=== PATIENT | female | born 1925 | race Caucasian/White ===

== ENCOUNTER 2016-09-22 16:47 | Inpatient (IN) | payer OTHER, MEDICARE ==
[~2016-09-22] VITALS: Ht 157.5 cm; Wt 51.7 kg
--- NOTE | 2016-09-22 17:01 | ED NEURO DEFICIT/STROKE ---
History of Present Illness General Chief Complaint: Neuro Symptoms/ Deficit Stated Complaint: SUDDEN ONSETN DIFF SPEAKING/AMBULATING. Source: EMS Exam Limitations: SEVERE APHASIA Vital Signs & Intake/Output Vital Signs & Intake/Output Vital Signs Date Time Temp Pulse Resp B/P B/P Pulse O2 O2 Flow FiO2 Mean Ox Delivery Rate 09/28 1137 98.1 96 20 110/64 09/28 0800 Room Air 09/28 0800 98.1 96 20 110/64 94 Room Air ED Intake and Output 09/29 0000 09/28 1200 Intake Total 100 Output Total 400 Balance -300 Intake, Oral 100 Number 100 Bowel Movements Output, Urine 400 Allergies Coded Allergies: No Known Allergies (09/22/16) Reconcile Medications Atorvastatin Calcium 80 MG TABLET 80 MG PO 1700 CVA Cyanocobalamin (Vitamin B-12) (Vitamin B12) 2,500 MCG TAB.CHEW 1 TAB PO Q MONTH DEFICIENCY (Reported) Montelukast Sodium 10 MG TABLET 1 TAB PO DAILY ALLERGIES (Reported) Triage Note: BIBA FOR NEW ONSET DIFFICULTY SPEAKING AND AMBULATING WITNESSED BY ASSISTED LIVING FACILITY. TIME OF ONSET WAS 1615. UPON ARRIVAL PT AWAKE, EYES OPEN. SKIN WARM AND DRY. DR TAVARES IN TO EXAMINE PT AND PT SENT TO CT SCAN Triage Nurses Notes Reviewed? yes HPI: Patient presents for evaluation of a possible stroke. Roughly 45 minutes ago she was talking with staff members at the front desk attendant of her extended care facility. She suddenly became aphasic and began having trouble walking. According to EMS (patient is unable to provide history) she typically ambulates well and is quite talkative. Past History Travel History Traveled to [place] past 21 day No Medical History Any Pertinent Medical History? see below for history Surgical History Surgical History: unobtainable Family History Hx Contributory? No (UNOBTAINABLE) Review of Systems Review of Systems Constitutional: Reports: see HPI. Comments Patient unable to provide review of systems Physical Exam Physical Exam General Appearance: SEE BELOW Cranial Nerves: SEE BELOW Comments: Gen.: Well-nourished, well-developed, no acute respiratory distress. Head: Normocephalic, atraumatic. Eyes: Normal inspection bilaterally, PERRLA, EOMI Ear of erythema. The right nariss: Normal inspection bilaterally Nose: Normal inspection Throat/mouth : Moist mucosa Face: No apparent facial droop Neck: Supple, full range of motion, no goiter Heart: Regular rate and rhythm, no murmurs rubs or gallops Lungs: Clear to auscultation bilaterally with normal air entry Chest: Nontender Back: Normal range of motion Abdomen: Soft, nontender, nondistended, normal bowel sounds Extremities: Normal range of motion grossly, equal radial pulses, no cyanosis clubbing or edema, normal hand grasp bilaterally, normal lower extremity strength, no Babinski sign. Neurologic: Cranial nerves grossly intact, speech is clear Skin: warm and dry Psychiatric: Calm, cooperative, no apparent delusions or hallucinations Core Measures CVA/TIA Diagnosis: Yes NIH Stroke Scale: Total 3 Severe Sepsis Present: No Septic Shock Present: No Progress Differential Diagnosis: stroke Plan of Care: Orders Procedure Date/time Status Heart Healthy Diet 09/28 L Active Fluoroscopic Eval Swallowing 09/28 UNK Complete Gait Training 09/28 UNK Complete Discharge Patient 09/28 UNK Active Diagnostic Imaging: Discussed w/RAD: CT Scan. Radiology Impression: PATIENT: NATALIYA GERMAN PRESENT AGE: 89 PATIENT ACCOUNT NO: [id number] : [birth year] LOCATION: [facility] ORDERING PHYSICIAN: QAMAR TAVARES MD SERVICE DATE: 09/22/16 EXAM TYPE: CAT - CT HEAD WO IV CONTRAST EXAMINATION: CT HEAD WITHOUT CONTRAST CLINICAL INFORMATION: Altered mental status COMPARISON: None TECHNIQUE: Contiguous axial imaging was performed from the skull base to vertex without intravenous administration of contrast. DLP: 672.25 mGy-cm FINDINGS: There is no evidence of acute intracranial hemorrhage or territorial infarction. No abnormal mass effect or midline shift is seen. Champion to white matter differentiation is well preserved. No extra-axial fluid collections are identified. There is atrophy with prominence of the ventricles and the sulci and hypodensity of the periventricular white matter due to chronic small vessel ischemic disease. There is vascular calcifications of the internal carotid arteries and vertebral arteries bilaterally and basilar artery. 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 The mastoid air cells and visualized portions of the paranasal sinuses are well aerated. IMPRESSION: No acute intracranial pathology. This critical result was discussed with Dr. Tavares on 09/22/2016, 5:10 PM and it was ascertained that the content and urgency of the report was understood at the time of direct communication. DICTATED BY: TING VÁZQUEZ MD DATE/TIME DICTATED:1704 PUMP INSTALLATION AND SERVICER:KENROY DATE/TIME TRANSCRIBED:09/22/161704 CONFIDENTIAL, DO NOT COPY WITHOUT APPROPRIATE AUTHORIZATION. <Electronically signed in Other Vendor System> SIGNED BY: TING VÁZQUEZ MD 09/22/161712 Initial ED EKG: NSR, no ST T wave changes Comments: NIH stroke score is limited due to patient's severe aphasia. 17:03 patient's case discussed with Dr. Quintero including physical exam findings and limited NIH stroke score. He feels given the importance of language capacity the patient should be offered TPA. 17:09 PER CHARU RAD: NO ACUTE FINDINGS, ATROPHY. 09/22/2016 5:21:46 PM patient's son is here in the emergency department and states that this patient is not at baseline. The language capacity is severely limited. I must admit however that she is answering questions better than before, able to state "I don't know what's happening". Despite this however I still think that the patient would benefit from TPA. Patient's son is discussing his mother's situation with his . At this point I don't feel the patient is capable of informed medical decision making. 09/22/2016 5:45:42 PM the patient's son and [id number] are at the bedside and have been interacting with Nataliya for close to half an hour. They state that she has had very similar episodes like this in the past and they typically resolve after about 4-6 hours. The daughter states that Nataliya's recovery for this episode seems to be more rapid than prior episodes and she is somewhat hesitant in TPA administration. Although Nataliya seems to be improving steadily , she still has a considerable aphasia. I have discussed this with Dr. Quintero who feels that all things considered, we will hold on TPA at this point. 09/22/2016 5:51:45 PM I have just reevaluated Nataliya because the family felt that she worsen. They noticed a left facial droop and she seemed to become pale. She also began pointing towards her head. They feel she might be experiencing a headache. We will go ahead with the TPA given the patient's stuttering symptoms and I have also ordered acetaminophen for the possibility of a headache and a small dose of labetalol to stabilize the patient's blood pressure (her last pressure is only slightly below the contraindication). Fortunately we are still well within the three-hour time window. Departure Departure Disposition: STILL A PATIENT Condition: Stable Clinical Impression Primary Impression: CVA (cerebral vascular accident) Qualifiers: CVA mechanism: unspecified Qualified Code: I63.9 - Cerebral infarction, unspecified Referrals: DIETER LIRIANO,DENNY (PCP/Family) Departure Forms: Customer Survey General Discharge Information Prescriptions: Current Visit Scripts Atorvastatin Calcium 80 MG PO 1700 28 Days Admission Note Spoke With: MERCEDES JORGENSEN MD Documentation of Exam: Documentation of any treatments & extenuating circumstances including Concerns Regarding Discharge (functional status, medication knowledge or non-compliance, living conditions, etc.) that warrant an admission rather than observation: Patient presents with a dense expressive aphasia consistent with a stroke. She has been administered TPA and now requires hospitalization to the intensive care unit with close clinical monitoring of vital signs and neurological status. Neurology consult should be obtained and patient should have medications initiated to prevent future strokes. Reversible causes of stroke should also be investigated and treated accordingly. Given this patient's advanced age and severity of symptoms I feel she'll require multiple day hospitalization.
--- NOTE | 2016-09-22 17:07 | NUR ---
PT RETURNED FROM CT SCAN. SON AT BEDSIDE. PT AWAKE, ALERT, FOLLOWING COMMANDS. CONTINUALLY SAYING "HELP ME". NOT ANSWERING QUESTIONS APPROPRIATELY. UNABLE TO TELL ME WHERE SHE IS OR WHAT HER BIRTHDAY IS. DID RECOGNIZE AND CALL OUT SONS NAME APPROPRIATELY WHEN HE ENTERED ROOM
--- NOTE | 2016-09-22 17:07 | NUR ---
JOSE FOR NEW ONSET DIFFICULTY SPEAKING AND AMBULATING WITNESSED BY ASSISTED LIVING FACILITY. TIME OF ONSET WAS 1615. UPON ARRIVAL PT AWAKE, EYES OPEN. SKIN WARM AND DRY. DR BOWERS IN TO EXAMINE PT AND PT SENT TO CT SCAN
--- NOTE | 2016-09-22 17:08 | NUR ---
12 LEAD EKG BEING DONE
--- NOTE | 2016-09-22 17:13 | CT SCAN REPORT ---
EXAMINATION: CT HEAD WITHOUT CONTRAST CLINICAL INFORMATION: Altered mental status COMPARISON: None TECHNIQUE: Contiguous axial imaging was performed from the skull base to vertex without intravenous administration of contrast. DLP: 672.25 mGy-cm FINDINGS: There is no evidence of acute intracranial hemorrhage or territorial infarction. No abnormal mass effect or midline shift is seen. Champion to white matter differentiation is well preserved. No extra-axial fluid collections are identified. There is atrophy with prominence of the ventricles and the sulci and hypodensity of the periventricular white matter due to chronic small vessel ischemic disease. There is vascular calcifications of the internal carotid arteries and vertebral arteries bilaterally and basilar artery. 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 The mastoid air cells and visualized portions of the paranasal sinuses are well aerated. IMPRESSION: No acute intracranial pathology. This critical result was discussed with Dr. Tavares on 09/22/2016, 5:10 PM and it was ascertained that the content and urgency of the report was understood at the time of direct communication.
--- NOTE | 2016-09-22 17:30 | NUR ---
PT ON MONITOR AND IS IN SINUS RHYTHM
--- NOTE | 2016-09-22 17:30 | NUR ---
SECOND IV PLACED. LABS DRAWN AND GEORGE PLACED.
[2016-09-22 17:36] LABS: ABSOLUTE BASOPHIL COUNT 0 /CUMM (0.0-0.2); ABSOLUTE EOSINOPHIL COUNT 0.1 /CUMM (0.0-0.7); ABSOLUTE GRANULOCYTE CT 4.6 /CUMM (1.4-6.5); ABSOLUTE LYMPH COUNT 1.7 /CUMM (1.2-3.4); ABSOLUTE MONOCYTE COUNT 0.6 /CUMM (0.10-0.60); BASOPHIL % 0.3 % (0.0-2.0); EOSINOPHIL % 1.6 % (0-5); GRANULOCYTE % 64.9 % (42.2-75.2); HEMATOCRIT 43.2 % (37-47); MEAN CORPUSCULAR HGB 29.3 PG (27.0-31.0); MEAN CORPUSCULAR HGB CONC 33.4 G/DL (33.0-37.0); MEAN CORPUSCULAR VOLUME 87.7 FL (81.0-99.0); MEAN PLATELET VOLUME 7.4 FL (7.4-10.4); PLATELET COUNT 335 /CUMM (130-400); RBC DISTRIBUTION WIDTH 15.1 % (11.5-14.5); RED BLOOD CELL CT 4.93 /CUMM (4.20-5.40); WHITE BLOOD CELL COUNT 7.1 /CUMM (4.8-10.8)
--- NOTE | 2016-09-22 17:45 | NUR ---
FAMILY AT BEDSIDE AND SPOKE WITH DR BOWERS. FAMILY CONSENTS TO TPA BEING GIVEN.
[2016-09-22 17:50] LABS: PT 11.3 SEC (9.4-12.5); PTT 31 SEC (25-37)
--- NOTE | 2016-09-22 17:50 | NUR ---
PT REMAINS ALERT, FOLLOWS SOME COMMANDS BUT NOT ALL COMMANDS. EXPRESSIVE APHASIA NOTED. PT UNABLE TO ANSWER QUESTIONS. MOVES ALL EXTREMITIES. LEFT LEG WEAKER THEN RIGHT. CANNOT HOLD LEFT LEG IN AIR FOR MORE THEN AN COUPLE SECONDS.
--- NOTE | 2016-09-22 17:55 | NUR ---
TPA PREPARED AND DOSAGES CONFIRMED WITH [facility]. BOLUS DOSE OF 4.7CC GIVEN AND GTT STARTED AT 42.7CC/HR AT 1755.
--- NOTE | 2016-09-22 18:05 | NUR ---
PT MEDICATED FOR COMPLAINTS OF HEADACHE WITH TYLENOL
--- NOTE | 2016-09-22 18:15 | NUR ---
FAMILY CONTACT INFO. DILEEP GERMAN, SON [phone] NOHEMI GERMAN [phone], CELL. HOME [phone]
--- NOTE | 2016-09-22 18:20 | NUR ---
DR BOWERS IN TO ASSESS PT. PT WITHOUT ANY WORSENING OR NOTICEABLE IMPROVEMENT IN NEURO STATUS
--- NOTE | 2016-09-22 18:30 | History & Physical ---
RNOALD LIRIANO,[facility] 09/22/16 0479: General Information and HPI MD Statement: I have seen and personally examined NEVILLE GERMAN and documented this H&P. The patient is a 89 year old F who presented with a patient stated chief complaint of [inability to speak and leg weakness]. Source of Information: patient, family Exam Limitations: unable to give history, physical impairment History of Present Illness: Patient is a 89-year-old lady with PMH of TIA (in November 2015), seizures, osteoporosis, vitamin B12 deficiency (receiving monthly B12 injections), anxiety , pernicious anemia, left hip replacement sx in 2013, who was brought into the ED due to acute onset difficulty speaking as well as weakness in the legs. Patient herself is unable to give us a history due to aphasia, she is able to understand and follow commands and expresses very few meaningful words every now and then including 'yes' and 'help'. History was taken on the phone from the daughter, who reported that patient was eating dinner does evening and all of a sudden she was unable to speak, she was also unable to walk and had gait abnormality as a wobbly gait. Patient was brought in to the ED and reportedly her symptoms had improved to a great extent, however she was still unable to talk and had a slight left facial droop. She was in the window for TPA and received alteplase in the ED. According to the daughter patient had TIA in November 2015, was admitted to [facility] (seen by Dr. Doss, neurologist), she takes aspirin 325 mg daily since then. Allergies/Medications Allergies: Coded Allergies: No Known Allergies (09/22/16) Past History Travel History Traveled to [place] past 21 day No Medical History Neurological: dementia, TIA EENT: macular degeneration Gastrointestinal: GERD Musculoskeletal: osteoporosis, UNSTEADY GAIT HIP FX Psychiatric: anxiety Endocrine: B12 DEFICIENCY Blood Disorders: anemia Surgical History Surgical History: hip replacement Past Family/Social History Family History Relations & Conditions if any MOTHER CVA SISTER FH: digestive disorders Psychosocial History Smoking Status: Never Smoked ETOH Use: 1-2 glass of wine or champaigne/day, stopped recently due to elevated liver enzymes Illicit Drug Use: UTD Functional Ability Ambulation: walker, rolling walker since she had hip replacement surgery Review of Systems Review of Systems Constitutional: Denies: chills, weakness. EENTM: Denies: visual changes. Cardiovascular: Denies: chest pain, palpitations. Respiratory: Denies: cough, short of breath. GI: Denies: abdominal pain. Genitourinary: Denies: dysuria. Musculoskeletal: Denies: back pain. Skin: Reports: no symptoms. Exam & Diagnostic Data Last 24 Hrs of Vital Signs/I&O Vital Signs Date Time Temp Pulse Resp B/P Pulse O2 O2 Flow FiO2 Ox Delivery Rate 09/22 2024 97.3 98 16 140/90 95 Room Air 09/22 1955 Room Air 09/22 1948 96.7 96 18 140/88 95 Room Air 09/22 1927 95 18 130/84 94 Room Air 09/22 1911 95 16 136/88 95 Room Air 09/22 1854 94 16 132/84 95 Room Air 09/22 1839 93 16 136/84 95 Room Air 09/22 1822 93 16 136/80 95 Room Air 09/22 1810 94 16 148/84 94 Room Air 09/22 1755 96.7 95 18 146/85 94 Room Air 09/22 1748 95 20 170/94 94 Room Air Room Air 09/22 1730 Room Air 09/22 1651 103 180/104 95 Room Air Physical Exam General Appearance Alert, Mild Distress Skin No Significant Lesion HEENT Atraumatic, PERRLA, Mucous Membr. moist/pink, EOM exam unreliable, patient has baseline visual impairment due to macular degeneration Neck Supple, No JVD Cardiovascular Normal S1, Normal S2, No Murmurs Lungs Normal Air Movement Abdomen Soft, No Tenderness Neurological Normal Tone, Reflexes 2+, babinski reflex negative, impaired sensation to touch on the left lower extremity, expressive aphasia, non-fluent, mild left sided facial droop, forces of the UE 5/5, LLE 4/5, RLE 5/5. there is length inequality between the lower extremities, RLE appears to be longer than the left. she has had hip replacement surgery and since then she has to wear specific shoes to equalize length of the legs and uses a rolling walker to ambulate Extremities No Cyanosis, No Edema, Normal Pulses, No Tenderness/Swelling, left leg is shorter than the right leg, s/p hip replacement, has special shoe to wear for walking Vascular Normal Pulses, Pulses Symmetrical Last 24 Hrs of Labs/West: Laboratory Tests 09/22/16 1721: Anion Gap 11, Estimated GFR > 60, BUN/Creatinine Ratio 20.0, Glucose 95, Calcium 9.5, Total Bilirubin 0.4, AST 102 H, ALT 152 H, Alkaline Phosphatase 224 H, Total Protein 6.8, Albumin 3.8, Globulin 3.0, Albumin/Globulin Ratio 1.3, PT 11.3, INR 1.08, APTT 31, CBC w Diff NO MAN DIFF REQ, RBC 4.93, MCV 87.7, MCH 29.3, RDW 15.1 H, MPV 7.4, Gran % 64.9, Lymphocytes % 24.2, Monocytes % 9.0, Eosinophils % 1.6, Basophils % 0.3, Absolute Granulocytes 4.6, Absolute Lymphocytes 1.7, Absolute Monocytes 0.6, Absolute Eosinophils 0.1, Absolute Basophils 0, PUBS MCHC 33.4 Assessment/Plan Assessment: Patient is a 89 year old lady with PMH of dementia, TIA, seizures, GERD, osteoporosis, vitamin B12 deficiency, anxiety, anemia, macular degeneration, who was brought in to the ED due to acute onset aphasia, left sided facial droop and with lower extremity weakness. problem list and plan: CVA Acute onset expressive aphasia with left-sided facial droop and LE weakness ( acute ischemic stroke status post TPA) * admit to ICU * Neurochecks Q1h * If deteriorate, obtain CT head without IV contrast to rule out hemorrhagic transformation * swallow eval in am (failed bedside swallow eval), medications on hold, will have to confirm CMR in am, keep on IV fluids * Neurology on Board, talked with Dr. Quintero on the phone * carotid Doppler ultrasound and echocardiogram * Discuss with family in am if left hip prosthesis is compatible for MRI of the head * PT/OT consult in am DVT px with Alps NPO - failed bedside swallow eval FULL CODE As Ranked By This Provider Problem List: 1. CVA (cerebral vascular accident) Qualifiers CVA mechanism: unspecified Qualified Code: I63.9 - Cerebral infarction, unspecified Core Measures/Miscellaneous Acute Coronary Syndrome ACS Diagnosis: No Cerebrovascular Accident CVA/TIA Diagnosis: Yes NIH Stroke Scale: Total 7 Date Last Known Well: 09/22/16 Time Last Known Well: 1615 Neurological S/S of CVA: Slurred Speech, Weakness of Limb Symptom Start Date: 09/22/16 Symptom Start Time: 1615 Bedside Swallow Eval Done: Yes Result of Evaluation: Fail Days in Hospital: day 1 Antithrombotic: No No Antithrombotic d/t: Medical Contraindication AFIB: No Aflutter: No Anticoagulant: No No Anticoag d/t: Medical Contraindication Evidence of Atherosclerosis: No LDL Assessed Within 24 Hours: Yes Currently on Statin: No Congestive Heart Failure CHF Diagnosis: No Venous Thromboembolism VTE Risk Factors: Acute medical illness, Age > 40 [facility] prophylaxis d/t: No contraindications No VTE Pharm Prophylaxis d/t: Medical contraindication VTE Diagnosis: No VTE Type: NONE VTE Confirmed by (Test): NONE Severe Sepsis Severe Sepsis Present: No Septic Shock Septic Shock Present: No Miscellaneous Documentation Attending Case Discussed With: MERCEDES JORGENSEN MD Primary Care Physician: DIETER LIRIANO,DENNY Patient sees these Specialists Dr. Doss, neurologist Level of Patient Care: Critical Care (CRI) ANTON WHATLEY 09/22/16 2008: General Information and HPI Allergies/Medications Home Med list Aspirin (Aspirin*) 325 MG TABLET 1 TAB PO DAILY BLOOD THINNER (Reported) Cyanocobalamin (Vitamin B-12) (Vitamin B12) 2,500 MCG TAB.CHEW 1 TAB PO Q MONTH DEFICIENCY (Reported) Montelukast Sodium 10 MG TABLET 1 TAB PO DAILY ALLERGIES (Reported) Resident Review Statement Resident Statement: examined this patient, discussed with engineering intern, agreed with engineering intern Other Findings: Patient is a 89-year-old woman with a past medical history significant for seizures(not on any medications as per neurology), episode of TIA last year in November 2015, history of osteoporosis, macular degeneration, vitamin B12 deficiency , dementia/cognitive impairment, left hip replacement, GERD presented to the ED for the evaluation of acute onset slurring of speech with weakness. Patient is a resident of [facility], in the ED patient was still incoherent, so most of the history was obtained from the daughter. According to the daughter, patient has been forgetting a lot for the past 1 week. Today at around 4:15 PM, when she was about to get her dinner in the cafe, the staff noticed sudden onset of slurring of speech with lower extremity weakness, EMS was called in and she was immediately brought to the ED. Stat CAT scan in the ED did not reveal any acute ischemic/hemorrhagic infarction , but due to her severe aphasia with left-sided facial droop, after talking to Dr. Quintero, it was decided to administer TPA as she was still in the window. The daughter mentioned that she has a history of seizures almost once a year has been following up with a neurologist at [facility]. She had a TIA in 2016 and off towards she was started on full-strength aspirin. The daughter also mentioned that she has been worked up for her deranged LFTs, most likely due to her alcohol intake. She rarely drinks white wine at lunch and dinner. Never smoked vitals on admission: admission pulse 93, temperature 96, his rates rate 16, blood pressure 136/80 on room air. Gen. appearance: Slightly anxious, expressive aphasia Skin: Grossly normal HEENT: PEERLA Neck: Supple, No JVD Cardiovascular: S1 plus and stool without any murmurs Lungs: Clear to Auscultation, Normal Air Movement Abdomen: Normal Bowel Sounds, Soft, No Tenderness Neurological: Expressive aphasia, motor strength Strength at 5/5 in the upper extremities , motor strength 4 x 5 in the left lower extremity, motor strength 5 x 5 in the right lower extremity Cranial Nerves 3-12 NL, Reflexes 2+. Negative cerebellar signs Extremities: No Clubbing, No Cyanosis, No Edema Vascular: Normal Pulses. Pertinent labs on admission: Normal WBC count H&H stable 14.4/87.7, BP normal, deranged LFTs AST 102, ALT 152 , ALP 224. CT head without contrast showed: No acute intracranial pathology. CTA head and neck: Relatively normal CT angiogram of the neck. 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 No vessel occlusions or significant stenoses intracranially. 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 Focal 4 mm rounded focus of contrast opacification on venous phase of imaging in the left retrolenticular capsule which is indeterminate and may be due to a small cavernoma and/or venous angioma. EKG done in the ED showed normal sinus rhythm with first-degree heart block left axis deviation. Assessment and plan: 1. Acute onset severe expressive aphasia with left-sided facial droop(acute ischemic stroke status post TPA) * We will admit the patient to ICU * Patient failed bedside swallow evaluation keep the patient nothing by mouth for now obtained formal swallow evaluation the morning. * Continue fluids normal saline at the rate of 75 mL, keep the blood pressure more than 150, less than 200. * Neurology consult with Dr. Quintero has been obtained, as per recommendations Will monitor the patient overnight. * Neurochecks every 1 hour. * If patient's clinical condition worsens overnight, will obtain stat CT head without IV contrast to rule out any hemorrhagic transformation. * Obtain carotid Doppler ultrasound and echocardiogram. * We will discuss whether patient's left hip prosthesis is compatible for MRI of the head. * PT/OT consult in the morning. * All medications on hold. DVT prophylaxis Alps(as patient received TPA) Nothing by mouth for now Patient is DNR/DNI(code status confirmed with daughter Selam over the phone). MERCEDES JORGENSEN 09/22/16 0928: Attending MD Review Statement Attending Statement Attending MD Statement: examined this patient, discuss w/resident/PA/ENDORSEMENT CLERK, agreed w/resident/PA/ENDORSEMENT CLERK, reviewed EMR data (avail), reviewed images, amended to note Attending Assessment/Plan: CC: cannot speak pmh: Seizure disorder, TIA, GERD, left hip replacement Patient is aphasic, history obtained from ER notes, daughter. According to EMS note patient was last noted baseline at 4:15 PM, start at the [facility] noticed difficulty in her speech, ambulation so they called EMS. In ER patient was noted aphasic, eventual facial droop so Dr. Quintero was called and option of thrombolysis was discussed with family, patient received alteplase at 5.55 p.m. We were called for admission. According to daughter patient has been more forgetful in last 1 week, no other details available. Vitals: Afebrile, pulse 103, RR 22, blood pressure 170/94, saturating well on room air at presentation. Later on blood pressure decreased to 146/85 On examination: Alert, expressive aphasia, follows instructions, in comprehensible talk, strength minimally decreased on right upper extremity compared to left, minimal facial drooping on left side, lower extremity strength intact, left lower extremity shortened and right, neck supple, pupils equal bilaterally, extraocular muscles intact. CVS: S1-S2, RRR. No JVD, no murmurs. RS: Clear to auscultate at bases. Abdomen: Soft, NT, ND, bowel sounds present. No pedal edema. Labs: CBC unremarkable, AST 102, ALT 152, alkaline phosphatase 224. Otherwise BMP, LFT, troponin negative, INR 1.08 CT head: No evidence of hemorrhage or infarct EKG: No acute abnormality A and P #1 acute onset aphasia: Commonest cause could be stroke, patient received thrombolysis. Dr. Quintero was informed from ER. Currently patient has expressive aphasia, follows few instructions, minimum weakness right upper extremity and minimum left facial droop. - Admit to ICU - Consult neurology - Permissive hypertension - Treat only if systolic more than 180 and diastolic more than 100 with labetalol as necessary - As current blood pressure is in 140s systolic, continue gentle IV hydration at 50-75 mL per hour - Neurochecks every 1 hour, if any change obtain stat CT head to rule out bleed - CTA head and neck was obtained - Patient has left hip replacement: compatibility of the hardware with MRI is unknown - 2-D echo in a.m., continuous telemetry monitoring - Aspirin 325 after 24 hours of thrombolysis, before 48 hours according to neurology recommendation - Patient failed bedside swallow evaluation, official swallow evaluation in a.m. if patient passes then atorvastatin 40 mg within 24 hours - DVT prophylaxis after 24-48 hours - OT PT evaluation in morning #2 hold all her home medications #3 DNR/DNI
--- NOTE | 2016-09-22 18:33 | NUR ---
PT REMAINS AWAKE ALERT. APPEARS TO HAVE BOTH RECEPTIVE AND EXPRESSIVE APHASIA. PT NOT FOLLOWING ALL COMMANDS. PT NOT ABLE TO ANSWER QUESTIONS. DOES SPEAK AT TIMES AND SAYS "HELP ME' REPEATEDLY AND SAYING WORDS THAT SOUND LIKE PRAYERS AT TIMES. NO OVERT BLEEDING NOTED. NO BRUISING. URINE CLEAR.RESTING QUIETLY ON STRETCHER
--- NOTE | 2016-09-22 18:43 | NUR ---
TPA INFUSING COMPLETED. NEURO STATUS UNCHANGED
--- NOTE | 2016-09-22 18:55 | NUR ---
HOUSE STAFF AT BEDSIDE
--- NOTE | 2016-09-22 19:30 | NUR ---
TAKEN FOR CTA SCAN
--- NOTE | 2016-09-22 19:48 | NUR ---
RETURNED FROM CTA SCAN. DR DOOLEY AT BEDSIDE. PT COMPLAINING OF BEING COLD. GIVEN EXTRA BLANKETS. PT OTHERWISE CONTINUES TO HAVE EXPRESSIVE APHASIA. KEEPS SAYING "HELP ME" AND MAKING OTHER BUDDHIST REFERENCES.
--- NOTE | 2016-09-22 20:01 | NUR ---
BED ASSIGNMENT [id number]
[2016-09-22] MEDS ORDERED: MONTELUKAST SOD10 M1 PO (20:04)
[2016-09-22] MEDS ORDERED: ASPIRIN325 M2 PO (20:04)
[2016-09-22] MEDS ORDERED: VITAMIN B122500 MC2 PO (20:06)
--- NOTE | 2016-09-22 20:22 | CT SCAN REPORT ---
EXAMINATION: CTA OF THE HEAD AND NECK CLINICAL INFORMATION: Aphasia and difficulty swallowing. COMPARISON: Head CT from earlier in the same evening on 09/22/2016. TECHNIQUE: Test bolus sequences followed by intravenous administration 95 mL of Optiray 320. Helical imaging was performed in the axial plane from the mediastinum to the skull vertex. Delayed postcontrast imaging of the head was also performed. The data was processed at the 3d technologist's workstation for generation of MIP sequences. Three-dimensional volume rendered reformatted images were also generated at an offline 3-D workstation. Stenoses are assessed in accordance with NASCET criteria unless otherwise indicated. DLP: 1634.72 mGy-cm. FINDINGS: CT head: There is no evidence of acute intracranial hemorrhage or territorial infarction. No abnormal mass effect or midline shift is seen. No extra-axial fluid collections are identified. There is a small 4 mm rounded focus of contrast opacification on delayed venous imaging in the left retrolenticular capsule which is not clearly visible on the arterial phase of the study and may represent a small cavernoma and/or venous angioma. There is no hydrocephalus. Extensive chronic white matter microangiopathic changes are again noted with parenchymal volume loss. There are scattered chronic lacunar infarcts in the deep castañeda matter structures. The osseous structures and soft tissues are normal. The mastoid air cells and visualized portions of the paranasal sinuses are well aerated. CTA neck: The imaged aortic arch and origins of the great vessels are normal. The common carotid arteries are widely patent. There is mild atheromatous disease at the carotid bifurcations without significant stenotic narrowing. The carotid bifurcations are otherwise normal. The cervical internal carotid arteries are normal. The vertebral arteries opacify normally and are of normal caliber. The thyroid gland is mildly heterogeneous without a visible dominant lesion. The remaining soft tissues of the neck are unremarkable. Mild dependent subsegmental atelectatic changes noted in the lungs. Significant degenerative changes at the right sternoclavicular articulation. CTA head: There is dolichoectasia and tortuosity of the vertebrobasilar vasculature with focal fusiform dilatation of the upper basilar artery, just inferior to the origins of the superior cerebellar arteries. The posterior cerebral arteries are widely patent. 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 The internal carotid arteries are otherwise of normal caliber. The MABEL and MCA vascular complexes bilaterally are normal. There is a small fenestration in the left A2 segment proximally. The venous sinuses opacify normally. IMPRESSION: Relatively normal CT angiogram of the neck. 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 No vessel occlusions or significant stenoses intracranially. 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 Focal 4 mm rounded focus of contrast opacification on venous phase of imaging in the left retrolenticular capsule which is indeterminate and may be due to a small cavernoma and/or venous angioma. Severe chronic white matter microangiopathy and parenchymal volume loss. No acute territorial infarction. Scattered chronic lacunar infarcts in the deep castañeda matter structures.
--- NOTE | 2016-09-22 20:39 | NUR ---
REPORT CALLED TO VIKTORIA IN ICU.
[2016-09-22 21:00] VITALS: BP 148/94
--- NOTE | 2016-09-22 23:30 | Admission Certification ---
Admission Certification Certification Statement - As attending physician, I certify that at the time of - admission, based on clinical presentation, severity of - symptoms, need for further diagnostic testing and - therapeutic interventions, and risk of adverse outcomes - without in-hospital treatment, in my clinical assessment, - this patient requires an acute hospital stay for a minimum - of two nights or longer. I have also considered psychsocial - factors such as support system, advanced age, financial - issues, cognitive issues, and failed out-patient treatments, - past re-admission history, safety of patient, and lack of - compliance as applicable. Specific rationale supporting this admission is: CVA
--- NOTE | 2016-09-23 04:17 | NUR ---
PATIENT RECEIVED FROM ER ACCOMPANIED BY ER STAFF VIA STRETCHER, TREANSFERED TO ICU BED HOOKED UP TO BEDSIDE MONITOR, INITIAL VITAL SIGNS TAKEN FOLLOWS TEMP=97.9, HR = 96, BP ( MANUAL ) = 148/94, AUTO CUFF BP = 154/96, SATURATION = 96%. PATIENT IS ALERT, OPEN EYES SPONTANEOUSLY BUT DISORIENTED TO PERSON, TIME, PLACE AND SITUATION, DENIES ANY PAIN, UNABLE TO TELL HER NAME, UNABLE TO ANSWER THE QUESTION BUT FOLLOW SIMPLE COMMAND, SPEAK SOME WORDS THAT SOUNDS LIKE A PRAYER AND KEEP REPEATING THE WORD "PLEASE", AND CALLING THE NAME BRODY. PERRLA 2 MM SLUGGISH, MOVING THE FOUR EXTREMITIES WITH GENERALIZED WEAKNESS AND AGAINTS GRAVITY. AFEBRILE, SINUS RHYTHM WITH 1ST DEGREE AV BLOCK, HAS GAUGE 20 X 2 ON BOTH RIGHT FOREARM.BREATHING SPONTANEOUSLYM ON R/A, GOOD AIR ENTRY BILATERALLY AND HAS CLEAR TO DIMINISHED LUNG SOUNDS, WITH GOOD O2 SATUREATION AND NOT IN DISTRESS. ABDOMEN IS SOFT, NON TENDER AND HAS GOOD BOWEL SOUNDS, PATIENT IS ON NPO BUT HAS IVF OF NS AT 75B CC/HR. GEORGE CATHETER IS IN INPLACED, INSERTED IN ER ON 09/22/16, NOTED TO HAVE GOOD AMOUNT OF CLEAR/YELLOW URINE OUTPUT. SKIN CONDITION IS POOR, HAS BRUISES ON THE UPPER AND LOWER EXTREMITIES OTHERWISE NO BROKEN SKIN AND NO ACTIVE BLEEDING. TPA WAS GIVEN IN ER AND FINISHED BEFORE COMING UP THE ICU.
[2016-09-23 05:36] LABS: ABSOLUTE BASOPHIL COUNT 0 /CUMM (0.0-0.2); ABSOLUTE EOSINOPHIL COUNT 0.1 /CUMM (0.0-0.7); ABSOLUTE GRANULOCYTE CT 5.8 /CUMM (1.4-6.5); ABSOLUTE LYMPH COUNT 2.1 /CUMM (1.2-3.4); ABSOLUTE MONOCYTE COUNT 0.7 /CUMM (0.10-0.60); BASOPHIL % 0.6 % (0.0-2.0); EOSINOPHIL % 0.9 % (0-5); HEMATOCRIT 46.4 % (37-47); MEAN CORPUSCULAR HGB 28.7 PG (27.0-31.0); MEAN CORPUSCULAR HGB CONC 32.5 G/DL (33.0-37.0); MEAN CORPUSCULAR VOLUME 88.1 FL (81.0-99.0); MEAN PLATELET VOLUME 7.9 FL (7.4-10.4); PLATELET COUNT 262 /CUMM (130-400); RBC DISTRIBUTION WIDTH 15.1 % (11.5-14.5); RED BLOOD CELL CT 5.26 /CUMM (4.20-5.40); WHITE BLOOD CELL COUNT 8.7 /CUMM (4.8-10.8)
[2016-09-23 05:43] LABS: PTT 27 SEC (25-37)
[2016-09-23 08:00] VITALS: BP 146/70
--- NOTE | 2016-09-23 08:18 | Cons- CRCU ---
RONALD LIRIANO,TEE 09/23/16 0818: General Information and HPI History of Present Illness: Patient is a 89-year-old lady with PMH of TIA (in November 2015), seizures, osteoporosis, vitamin B12 deficiency (receiving monthly B12 injections), anxiety , pernicious anemia, left hip replacement sx in 2013, who was brought into the ED due to acute onset difficulty speaking as well as weakness in the legs. Patient herself was unable to give us a history due to aphasia, she is able to understand and follow commands, expresses a few meaningful words every now and then including 'yes' and 'help'. History was taken on the phone from the daughter yesterday and further at bedside today, she reported that apparently the patient went to the cafeteria in the [place] to eat dinner, while ordering food all of a sudden was unable to speak, nursing called 911 right away. she was also found to have a wobbly gait. Patient was brought in to the ED right away and by that time she had some improvement in the symptoms however she was still unable to talk and had a slight left facial droop. She was in the window for TPA and received alteplase in the ED. According to the daughter patient had TIA in November 2015, was admitted to [facility] (seen by Dr. Doss, neurologist), she takes aspirin 325 mg daily since then. Her symptoms were similar in that her speech was mostly repeating a prayer but she was rather talkative although her speech would not make sense. This time the daughter reports that she is saying same prayers and speech is rather meaningless but she states less words. Allergies/Medications Allergies: Coded Allergies: No Known Allergies (09/22/16) Home Med List: Aspirin (Aspirin*) 325 MG TABLET 1 TAB PO DAILY BLOOD THINNER (Reported) Cyanocobalamin (Vitamin B-12) (Vitamin B12) 2,500 MCG TAB.CHEW 1 TAB PO Q MONTH DEFICIENCY (Reported) Montelukast Sodium 10 MG TABLET 1 TAB PO DAILY ALLERGIES (Reported) Review of Systems Review of Systems Constitutional: Reports: weakness. Denies: chills, fever. EENTM: Reports: no symptoms. Cardiovascular: Denies: chest pain, palpitations. Respiratory: Denies: cough, sputum production. GI: Denies: abdominal pain, changes in stool. Genitourinary: Reports: no symptoms. Musculoskeletal: Reports: no symptoms. Skin: Reports: no symptoms. Past History Travel History Traveled to [place] past 21 day No Medical History Neurological: dementia, TIA EENT: macular degeneration Gastrointestinal: GERD Musculoskeletal: osteoporosis, UNSTEADY GAIT HIP FX Psychiatric: anxiety Endocrine: B12 DEFICIENCY Blood Disorders: anemia Surgical History Surgical History: unobtainable Psychosocial History Smoking Status: Never Smoked ETOH Use: 6 Illicit Drug Use: UTD Exam & Diagnostic Data Last 24 Hrs of Vital Signs/I&O Vital Signs Date Time Temp Pulse Resp B/P Pulse O2 O2 Flow FiO2 Ox Delivery Rate 09/23 0800 99.0 96 20 146/70 95 Room Air 09/23 0800 95 Room Air 09/23 0400 95 Room Air 09/23 0000 96 Room Air 09/22 2100 97.9 96 17 148/94 96 Room Air 09/22 2100 96 09/22 2100 96 Room Air 09/22 2025 97.3 98 16 140/90 95 Room Air 09/22 1955 Room Air 09/22 1948 96.7 96 18 140/88 95 Room Air 09/22 1927 95 18 130/84 94 Room Air 09/22 1911 95 16 136/88 95 Room Air 09/22 1854 94 16 132/84 95 Room Air 09/22 1839 93 16 136/84 95 Room Air 09/22 1822 93 16 136/80 95 Room Air 09/22 1810 94 16 148/84 94 Room Air 09/22 1755 96.7 95 18 146/85 94 Room Air 09/22 1748 95 20 170/94 94 Room Air Room Air 09/22 1730 Room Air 09/22 1651 103 180/104 95 Room Air Intake & Output 09/23 1600 09/23 0800 09/23 0000 Intake Total 757 225 Output Total 625 490 Balance 132 -265 Intake, IV 757 225 Output, Urine 625 490 Patient 52.617 kg Weight Physical Exam General Appearance: no apparent distress, alert, awake, comfortable, thin Head: atraumatic Eyes: Bilateral: normal appearance (unable to follow directions). Ears, Nose, Throat: normal ENT inspection Neck: normal inspection, supple, full range of motion Respiratory: normal breath sounds, chest non-tender, no respiratory distress Cardiovascular: regular rate/rhythm Peripheral Pulses: 2+ radial (R), 2+ radial (L), 2+ dorsalis pedis (R), 2+ dorsalis pedis (L) Gastrointestinal: normal bowel sounds, soft, non-tender Back: normal inspection, normal range of motion Extremities: normal capillary refill, normal range of motion, no edema Skin: intact Last 48 Hrs of Labs/West: Laboratory Tests 09/23/16 0500: Anion Gap 10, Estimated GFR > 60, Glucose 86, Calcium 9.4, Phosphorus 3.4, Magnesium 1.8, Total Bilirubin 0.9, AST 80 H, ALT 126 H, Albumin 4.0, Triglycerides 98, Cholesterol 173, LDL Cholesterol, Calc 77, HDL Cholesterol 77 H, Cholesterol/HDL Ratio 2, APTT 27, CBC w Diff NO MAN DIFF REQ, RBC 5.26, MCV 88.1, MCH 28.7, RDW 15.1 H, MPV 7.9, Gran % 67.0, Lymphocytes % 23.9, Monocytes % 7.6, Eosinophils % 0.9, Basophils % 0.6, Absolute Granulocytes 5.8, Absolute Lymphocytes 2.1, Absolute Monocytes 0.7 H, Absolute Eosinophils 0.1, Absolute Basophils 0, PUBS MCHC 32.5 L, Urinalysis LIGHT H, Urine Color YEL, Urine Clarity HAZY H, Urine pH 7.0, Ur Specific [place] 1.010, Urine Protein NEG, Urine Ketones NEG, Urine Nitrite NEG, Urine Bilirubin NEG, Urine Urobilinogen 0.2, Ur Leukocyte Esterase NEG, Ur Microscopic SEDIMENT EXAMINED, Urine RBC 25- 50 H, Urine WBC RARE, Urine Bacteria FEW H, Urine Mucus FEW, Urine Hemoglobin LARGE H, Urine Glucose NEG 09/22/16 1721: Anion Gap 11, Estimated GFR > 60, BUN/Creatinine Ratio 20.0, Glucose 95, Calcium 9.5, Total Bilirubin 0.4, AST 102 H, ALT 152 H, Alkaline Phosphatase 224 H, Total Protein 6.8, Albumin 3.8, Globulin 3.0, Albumin/Globulin Ratio 1.3, PT 11.3, INR 1.08, APTT 31, CBC w Diff NO MAN DIFF REQ, RBC 4.93, MCV 87.7, MCH 29.3, RDW 15.1 H, MPV 7.4, Gran % 64.9, Lymphocytes % 24.2, Monocytes % 9.0, Eosinophils % 1.6, Basophils % 0.3, Absolute Granulocytes 4.6, Absolute Lymphocytes 1.7, Absolute Monocytes 0.6, Absolute Eosinophils 0.1, Absolute Basophils 0, PUBS MCHC 33.4 Assessment/Plan Impression/Plan: Patient is a 89-year-old lady with PMH of TIA (in November 2015), seizures, osteoporosis, vitamin B12 deficiency (receiving monthly B12 injections), anxiety , pernicious anemia, left hip replacement sx in 2013, who was brought into the ED due to acute onset difficulty speaking as well as weakness in the legs. problem list and plan: CVA Acute onset expressive aphasia with left-sided facial droop and LE weakness ( acute ischemic stroke status post TPA). improved today. * continue Neurochecks Q1h * If deteriorate, obtain CT head without IV contrast to rule out hemorrhagic transformation * repeat CT in 24 hours, if negative start aspirin * swallow eval this am: puree and honey thick diet * repeat LFTs and consider starting statin * Neurology on Board, will follow Dr. Quintero recommendations * carotid Doppler ultrasound and echocardiogram * follow PT/OT consult DVT px with Alps Diet - honey think and puree FULL CODE Consult Acknowledgment - Thank you for your consult request. KAYLEIGH LIRIANO,Jerald GARCIA 09/23/16 0943: General Information and HPI Consulting Request Date of Consult: 09/23/16 Requested By: Dr. Dove Reason for Consult: CVA, s/p TPA, CRCU monitoring Source of Information: old records Exam Limitations: clinical condition Assessment/Plan Other Findings/Comments: I have personally seen and examined the patient. I have reviewed the resident's physical exam, assessment and plan, and agree with the information as detailed above. The patient is a 89-year-old female with a past medical history significant for dementia, previous TIAs, history of seizures, reflux disease, osteoporosis and vitamin B12 deficiency. She also has a history of anxiety and anemia, and left hip fracture with raz placement. The patient was brought into the emergency department with an acute change in mental status. According to the EMS notes, the patient was seen at her baseline at 4:15 PM at an extended care facility. In the ED, the patient was noted to be aphasic with a progressive facial droop. Neurology was contacted and after family consent was given, the patient was administered alteplase at 5:55 PM. The patient had stable vital signs without further neurological deterioration. The patient currently is awake and alert. She remains aphasic. There were no overnight events, and her blood pressure remained stable in the 130s to 140s. A noncontrast CT scan of the head showed no acute abnormality. 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 Impression: 1. Acute CVA resulting in aphasia and left facial droop, status post TPA without further neurologic deterioration. 2. 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 3. Previous seizures, no evidence of seizures at present. 4. GERD. 5. Osteoporosis. 6. Chronic anemia. 7. Macular degeneration. Plan: * Continue every hour neuro checks. Monitor for seizures. * Await neurology input. * We will check a follow-up head CT at 24 hours. * Swallowing evaluation ordered today. * Will advance diet if able. * Carotid Doppler and echocardiogram ordered. Will consult cardiology if any abnormalities. * OT/PT consult. The patient will need to walk with a Rollator. She also has a special orthotic shoe which is necessary for ambulation given her previous hip fracture. * Alps for DVT prophylaxis. * Patient's family updated at the bedside. Consult Acknowledgment - Thank you for your consult request.
--- NOTE | 2016-09-23 08:32 | NUR ---
OCCUPATIONAL THERAPY NOTE: OT CONSULT RECEIVED AND CHART REVIEWED. PT IS S/P TPA <24 HOURS, OT EVAL CX FOR TODAY PER PROTOCOL. OT WILL F/U TOMORROW IF APPROPRIATE. THANK YOU.
--- NOTE | 2016-09-23 08:38 | NUR ---
PHYSICAL THERAPY. PT CONSULT RECEIVED AND CHART REVIEWED. Pt IS <24HR S/P tPA ADMINISTRATION. PT WILL DEFER EVALUATION PER PROTOCOL AND F/U APPROPRIATE.
--- NOTE | 2016-09-23 11:41 | NUR ---
Patient is alert and aphasic, unable to answer questions approprietly- speech is garbled at times. Occasionally will follow commands, right hand grasp appears weaker than left however no drift is noted and patient can move upper extremties freely. BLE also weak. NIH 6-8. Pupils are 2mm and brisk. 1st degree AV block on tele monitor, HR= 90-100's. SBP: 130-140's. On room air. lungs clear O2 sat 93-96%. Abdomen is soft and non tender with + bowel sounds. Swallow eval at the bedside and cleared patient for a puree/honey thick diet. Pop in place draining clear yellow urine. No areas of pressure injury are noted- Minimal areas of bruising are noted- RLE with trace edema. NS infusing at 75mls/hr. No s/s of pain are currently noted. Patients daughter in law at the bedside and updated on POC. Carotid ultrasound pending. Will continue to closely monitor patient.
--- NOTE | 2016-09-23 14:01 | ULTRASOUND REPORT ---
EXAMINATION: US DUPLEX CAROTID AND VERTEBRAL CLINICAL INFORMATION: Acute ischemic stroke/aphasia. COMPARISON: None available. TECHNIQUE: Real-time ultrasound and Doppler techniques (integrating B-mode 2D vascular images, Doppler spectral analysis and color flow Doppler imaging) were utilized to interrogate the extracranial carotid and vertebral arteries bilaterally. The degree of stenosis determined by criteria similar to NASCET. FINDINGS: Right common carotid artery peak systolic velocity ranges between 56 and 83 cm/s with maximal end-diastolic velocity of 14 cm/s. Right internal carotid artery peak systolic velocity measures up to 66 cm/s with maximal end-diastolic velocity of 16 cm/s. Right external carotid artery peak velocity is 107 cm/s. There is antegrade flow within the right vertebral artery. Extensive calcified atherosclerotic plaque at the right carotid bifurcation. Left common carotid artery peak systolic velocity ranges between 70 and 90 cm/s with maximal end-diastolic velocity of 18 cm/s. Left internal carotid artery peak systolic velocities range between 75 and 81 cm/s with maximal end-diastolic velocity of 23 cm/s. There is antegrade flow within the left vertebral artery. Left external carotid artery peak systolic velocity is 89 cm/s. There is calcified and soft lipid rich atherosclerotic plaque at the left carotid bifurcation. 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 There is no hemodynamically significant internal carotid artery stenosis by sonographic criteria.
[2016-09-23 16:00] VITALS: BP 136/84
--- NOTE | 2016-09-23 16:00 | NUR ---
Patient is alert- able to move all extremities and follow commands, she is now able to lift both legs off the bed on command. Hand grasps are strong however right appears slightly weaker than left. NIH currently a 2 which is improved from this mornings assessment. She can answer most questions appropriately- speech is slow and she has some mild expressive aphasia. She was able to tolerate a regular puree/honey diet for lunch and fed herself- set-up only. Neuro in to assess patient at this time. Vitals have remained stable and no s/s of pain are currently noted. Plan is for a repeat CT scan of her head
--- NOTE | 2016-09-23 16:44 | Cons- Neurology ---
General Information and HPI Consulting Request Date of Consult: 09/23/16 Requested By: MERCEDES JORGENSEN MD Reason for Consult: Sudden aphasia Source of Information: patient, old records Exam Limitations: no limitations History of Present Illness: 89-year-old woman suddenly unable to speak yesterday. She presented to the ER within the time window for TPA and this was administered after CT scan ruled out bleed. She was admitted to the ICU and has improved progressively. She is now speaking quite well although slowly. There is no associated weakness or numbness and no complaint of visual disturbance at this time. Allergies/Medications Allergies: Coded Allergies: No Known Allergies (09/22/16) Home Med List: Aspirin (Aspirin*) 325 MG TABLET 1 TAB PO DAILY BLOOD THINNER (Reported) Cyanocobalamin (Vitamin B-12) (Vitamin B12) 2,500 MCG TAB.CHEW 1 TAB PO Q MONTH DEFICIENCY (Reported) Montelukast Sodium 10 MG TABLET 1 TAB PO DAILY ALLERGIES (Reported) Current Medications: Current Medications Sig/Deion Start time Last Medication Dose Route Stop Time Status Admin Acetaminophen 650 MG Q6P PRN 09/22 1845 DC PO Acetaminophen 1,000 MG Q6P PRN 09/22 1845 DC IV Acetaminophen 0 .STK-MED ONE 09/22 1801 DC IV Acetaminophen 1,000 MG ONCE ONE 09/22 1800 DC 09/22 N/A 1 UNIT IV 09/22 1814 1807 Alteplase, 4.77 MG BOLUS ONE 09/22 1730 DC 09/22 Recombinant IV 09/22 1731 1755 Alteplase, 0 .STK-MED ONE 09/22 1730 DC Recombinant IV Aspirin 325 MG ONCE ONE 09/23 2000 AC PO 09/23 2000 Atorvastatin Calcium 80 MG 1700 09/23 1700 AC PO Diclofenac Sodium 1 NENA 4 TIMES/DAY PRN 09/22 2015 AC 09/22 TOP 2354 Ibuprofen 600 MG Q6P PRN 09/22 2014 DC PO Labetalol HCl 5 MG ONCE ONE 09/22 1800 CAN IV 09/22 1801 Oxycodone HCl 5 MG Q6P PRN 09/22 1845 DC PO Sodium Chloride 1,000 ML Q13H 09/22 1930 AC 09/23 IV 1029 Review of Systems Review of Systems: ROS: A complete medical systems review was obtained. No pertinent complaints were found. Past History Travel History Traveled to [place] past 21 day No Medical History Neurological: dementia, TIA EENT: macular degeneration Gastrointestinal: GERD Musculoskeletal: osteoporosis, UNSTEADY GAIT HIP FX Psychiatric: anxiety Endocrine: B12 DEFICIENCY Blood Disorders: anemia Surgical History Surgical History: hip replacement Family History Relations & Conditions If Any: MOTHER CVA SISTER FH: digestive disorders Psychosocial History Smoking Status: Never Smoked ETOH Use: 1-2 glass of wine or champaigne/day, stopped recently due to elevated liver enzymes Illicit Drug Use: UTD Functional Ability Ambulation: walker, rolling walker since she had hip replacement surgery Exam & Diagnostic Data Vital Signs and I&O Vital Signs Date Time Temp Pulse Resp B/P Pulse O2 O2 Flow FiO2 Ox Delivery Rate 09/23 1600 98.3 93 16 136/84 94 Room Air 09/23 1200 98 Room Air 09/23 0800 99.0 96 20 146/70 95 Room Air 09/23 0800 95 Room Air 09/23 0400 95 Room Air 09/23 0000 96 Room Air 09/22 2100 97.9 96 17 148/94 96 Room Air 09/22 2100 96 09/22 2100 96 Room Air 09/22 2025 97.3 98 16 140/90 95 Room Air 09/22 1955 Room Air 09/22 1948 96.7 96 18 140/88 95 Room Air 09/22 1927 95 18 130/84 94 Room Air 09/22 1911 95 16 136/88 95 Room Air 09/22 1854 94 16 132/84 95 Room Air 09/22 1839 93 16 136/84 95 Room Air 09/22 1822 93 16 136/80 95 Room Air 09/22 1810 94 16 148/84 94 Room Air 09/22 1755 96.7 95 18 146/85 94 Room Air 09/22 1748 95 20 170/94 94 Room Air Room Air 09/22 1730 Room Air 09/22 1651 103 180/104 95 Room Air Intake & Output 09/23 1600 09/23 0800 09/23 0000 Intake Total 810 757 225 Output Total 850 625 490 Balance -40 132 -265 Intake, IV 690 757 225 Intake, Oral 120 Output, Urine 850 625 490 Patient 116 lb Weight Physical Exam: On exam the patient appeared generally well and in no distress. No carotid bruits and no cardiac murmur. No peripheral edema Mental status: Alert, attentive, oriented to hosp,month andyear, speech is slow but no language errors, follows commands, formal MSE deferred Funduscopic unremarkable Visual abdullahi full , Eye movements full without nystagmus, pupils midsize equal round and reactive to light. Facial movement normal bilaterally Facial sensation normal bilaterally Hearing decreased bilaterally Uvula elevates midline Tongue protrusion is midline Shoulder shrug symmetric Motor power and tone normal in all 4 extremities Sensation intact to primary modes Tendon reflexes normal and symmetric without pathologic signs Coordination no ataxia Gait [testing deferred] Last 48 Hours of Lab Results: Laboratory Tests 09/23 09/22 0500 1721 Chemistry Sodium (137 - 145 mmol/L) 137 139 Potassium (3.5 - 5.1 mmol/L) 4.6 4.1 Chloride (98 - 107 mmol/L) 101 100 Carbon Dioxide (22 - 30 mmol/L) 26 29 Anion Gap (5 - 16) 10 11 BUN (7 - 17 mg/dL) 11 14 Creatinine (0.5 - 1.0 mg/dL) 0.7 0.7 Estimated GFR (>60 ml/min) > 60 > 60 BUN/Creatinine Ratio (7 - 25 %) 20.0 Glucose (65 - 99 mg/dL) 86 95 Calcium (8.4 - 10.2 mg/dL) 9.4 9.5 Phosphorus (2.5 - 4.5 mg/dL) 3.4 Magnesium (1.6 - 2.3 mg/dL) 1.8 Total Bilirubin (0.2 - 1.3 mg/dL) 0.9 0.4 AST (14 - 36 U/L) 80 H 102 H ALT (9 - 52 U/L) 126 H 152 H Alkaline Phosphatase (<127 U/L) 224 H Total Protein (6.3 - 8.2 g/dL) 6.8 Albumin (3.5 - 5.0 g/dL) 4.0 3.8 Globulin (1.9 - 4.2 gm/dL) 3.0 Albumin/Globulin Ratio (1.1 - 2.2 %) 1.3 Triglycerides (<150 mg/dL) 98 Cholesterol (<200 MG/DL) 173 LDL Cholesterol, Calc (65 - 129 mg/dL) 77 HDL Cholesterol (40 - 60 mg/dL) 77 H Cholesterol/HDL Ratio (0.00 - 4.23 %) 2 Coagulation PT (9.4 - 12.5 SEC) 11.3 INR (0.90 - 1.19) 1.08 APTT (25 - 37 SEC) 27 31 Hematology CBC w Diff NO MAN DIFF REQ NO MAN DIFF REQ WBC (4.8 - 10.8 /CUMM) 8.7 7.1 RBC (4.20 - 5.40 /CUMM) 5.26 4.93 Hgb (12.0 - 16.0 G/DL) 15.1 14.4 Hct (37 - 47 %) 46.4 43.2 MCV (81.0 - 99.0 FL) 88.1 87.7 MCH (27.0 - 31.0 PG) 28.7 29.3 RDW (11.5 - 14.5 %) 15.1 H 15.1 H Plt Count (130 - 400 /CUMM) 262 335 MPV (7.4 - 10.4 FL) 7.9 7.4 Gran % (42.2 - 75.2 %) 67.0 64.9 Lymphocytes % (20.5 - 51.1 %) 23.9 24.2 Monocytes % (1.7 - 9.3 %) 7.6 9.0 Eosinophils % (0 - 5 %) 0.9 1.6 Basophils % (0.0 - 2.0 %) 0.6 0.3 Absolute Granulocytes (1.4 - 6.5 /CUMM) 5.8 4.6 Absolute Lymphocytes (1.2 - 3.4 /CUMM) 2.1 1.7 Absolute Monocytes (0.10 - 0.60 /CUMM) 0.7 H 0.6 Absolute Eosinophils (0.0 - 0.7 /CUMM) 0.1 0.1 Absolute Basophils (0.0 - 0.2 /CUMM) 0 0 PUBS MCHC (33.0 - 37.0 G/DL) 32.5 L 33.4 Urines Urinalysis LIGHT H Urine Color (YEL,AMB,STR) YEL Urine Clarity (CLEAR) HAZY H Urine pH (5.0 - 8.0) 7.0 Ur Specific [place] (1.001 - 1.035) 1.010 Urine Protein (NEG,<30 MG/DL) NEG Urine Ketones (NEG) NEG Urine Nitrite (NEG) NEG Urine Bilirubin (NEG) NEG Urine Urobilinogen (0.1 - 1.0 EU/dl) 0.2 Ur Leukocyte Esterase (NEG) NEG Ur Microscopic SEDIMENT EXAMINED Urine RBC (0 - 5 /HPF) 25-50 H Urine WBC (0 - 2 /HPF) RARE Urine Bacteria (NEG/NONE) FEW H Urine Mucus (FEW,NONE) FEW Urine Hemoglobin (NEG) LARGE H Urine Glucose (N MG/DL) NEG Imaging/Other Studies: CT head: There is no evidence of acute intracranial hemorrhage or territorial infarction. No abnormal mass effect or midline shift is seen. Champion to white matter differentiation is well preserved. No extra-axial fluid collections are identified. There is atrophy with prominence of the ventricles and the sulci and hypodensity of the periventricular white matter due to chronic small vessel ischemic disease. There is vascular calcifications of the internal carotid arteries and vertebral arteries bilaterally and basilar artery. 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 The common carotid arteries are widely patent. There is mild atheromatous disease at the carotid bifurcations without significant stenotic narrowing. The carotid bifurcations are otherwise normal. The cervical internal carotid arteries are normal. The vertebral arteries opacify normally and are of normal caliber. The thyroid gland is mildly heterogeneous without a visible dominant lesion. The remaining soft tissues of the neck are unremarkable. Mild dependent subsegmental atelectatic changes noted in the lungs. Significant degenerative changes at the right sternoclavicular articulation. CTA head: There is dolichoectasia and tortuosity of the vertebrobasilar vasculature with focal fusiform dilatation of the upper basilar artery, just inferior to the origins of the superior cerebellar arteries. The posterior cerebral arteries are widely patent. 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 The internal carotid arteries are otherwise of normal caliber. The MABEL and MCA vascular complexes bilaterally are normal. There is a small fenestration in the left A2 segment proximally. The venous sinuses opacify normally. Assessment/Plan Assessment: Stroke syndrome, marketed improvement with TPA, still effortful speech with slow nikki but no dysnomia, follows commands Recommendations: Follow-up CT scan at 24 hours Echocardiogram Telemetry rule out PAF Begin aspirin 81 MG and Plavix [address] negative for bleed Consider atorvastatin 40 MG daily but would evaluate abnormal LFTs first Out of bed Speech therapy Ambulate with physical therapy initially, history of gait instability requiring walker Consult Acknowledgment - Thank you for your consult request.
--- NOTE | 2016-09-23 17:04 | Event Note ---
Event Note Event Note: S: received a call from [facility] regarding critical value of the patients head CT. This was a follow-up CT to one that the patient had 24 hours ago. B: Spoke with the radiologist who shared findings. Evidence of a new 2.2 AP by 1.5 cm located in the left posterior putamen. No mass effect noted. A/R: These findings were discussed with the neurologist Dr. Quintero was present in the ICU. The resident was also present during the course of our discussion. Dr. Quintero recommends that we continue to monitor the patient. Aspirin which is ordered for later this evening was discontinued. Repeat head CT may be reconsidered in the a.m. on 09/24/2016. If the patient does clinically deteriorate over the next 12-[address] without IV contrast sooner. Please update neurologist movement education specialist if this occurs. Patient's [id number] Selam was informed of the above findings and subsequently has no additional questions. She requests to be updated should there be any changes. Her phone number: [phone]. [facility] can be reached on [phone].
--- NOTE | 2016-09-23 17:07 | CT SCAN REPORT ---
CT HEAD WITHOUT CONTRAST CLINICAL INFORMATION: Left lower leg weakness. COMPARISON: Head CT 09/22/2016. TECHNIQUE: Contiguous axial imaging was performed from the skull base to vertex without intravenous administration of contrast. FINDINGS: There is a new 2.2 cm AP by 1.5 cm TV intraparenchymal hemorrhage within the posterior left putamen. No associated mass effect. I verified with the referring provider that there are left extremity symptoms. There is some patchy low attenuation within the upper right putamen and anterior limb of the right internal capsule that is similar to the previous study though age-indeterminate in light of these clinical findings. I cannot exclude an acute right sided infarct. MRI would be definitive. There is no hydrocephalus, extra-axial surface collection, midline shift, or other herniation pattern. Chronic findings appear stable including extensive chronic microangiopathy and chronic appearing lacunar infarcts within the deep castañeda nuclei bilaterally. 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 The basilar cisterns are preserved. No significant soft tissue abnormality. No acute osseous abnormality. The paranasal sinuses and the mastoid air cells are well-aerated. IMPRESSION: - There is a new 2.2 cm AP by 1.5 cm TV intraparenchymal hemorrhage within the posterior left putamen. No associated mass effect. I verified with the referring provider that there are left extremity symptoms. There is some patchy low attenuation within the upper right putamen and anterior limb of the right internal capsule that is similar to the previous study though age-indeterminate in light of these clinical findings. I cannot exclude an acute right sided infarct. MRI would be definitive. - Global cerebral volume loss, chronic microangiopathy, and chronic lacunar infarcts within the deep castañeda nuclei bilaterally. Redemonstrated a local ectasia of the vertebrobasilar system. Critical findings discussed with Dr. Jeronimo at 5:01 PM on 09/23/2016
--- NOTE | 2016-09-23 17:30 | NUR ---
Patient transported to CT scan on nut process helper accompanied by this RN. Tolerated the procedure well and vitals remained stable. [facility] now 1-2. Dr. Jeronimo to be notified of CT results- Will continue to closely monitor patient.
[2016-09-24] VITALS: BP 122/82
--- NOTE | 2016-09-24 00:08 | NUR ---
PATIENT RECEIVED ASLEEP- AWAKENED EASILY WITH VERBAL AND LIGHT TACTILE STIMULI, SKIN PINK, WARM AND DRY, DATA MODELING SPECIALIST SINUS WITH FIRST DEGREE AVB, HEART RATE 80'S/MIN, O2 SAT AT 94% ON RA, BREATHE SOUNDS CLEAR BUT DIMINISHED AT BASES, ABDOMEN SOFT, +BS, GEORGE TO GRAVITY DRAINAGE, PUPILS 2MM, EQUAL AND REACTIVE TO LIGHT, PATIENT DENIES ANY C/O DISCOMFORT AT THIS TIME- SPEECH SLOW BUT CLEAR, SPEAKS ONLY IN SHORT REPSONSES, MINIMAL LEFT FACIAL DROOP NOTED, PATIENT AWARE THAT SHE IS IN A HOSPITAL BUT NOT WHICH FACILITY, ABLE TO FOLLW SIMPLE COMMANDS, MOVES ALL 4 EXTREMITIES EQUALLY WELL- NO LIMB DRIFT NOTED, RE-SETTLED FOR SLEEP
--- NOTE | 2016-09-24 02:56 | NUR ---
DR SANCHEZ MADE AWARE OF LOWER UO PAST FEW HOURS- NO CHANGES IN ORDERS AT THIS TIME
--- NOTE | 2016-09-24 04:10 | CT SCAN REPORT ---
EXAMINATION: CT HEAD WITHOUT CONTRAST CLINICAL INFORMATION: Slurred speech. Abnormal neurologic exam. COMPARISON: Multiple prior exams are reviewed. The most recent is from 09/23/2016. TECHNIQUE: Contiguous axial images of the brain were obtained without IV contrast. DLP: 1058 mGy-cm. FINDINGS: There are no pathologic extra-axial fluid collections. The lateral, third, fourth ventricles are prominent, but stable, age-appropriate and concordant with the appearance of the sulci. Again identified is a focus of hemorrhage within the left putamen. This is equivocally increased in size from prior exam measuring 2.5 x 1.5 cm. There is no surrounding edema. No additional areas of intraparenchymal hemorrhage are identified. There is stable periventricular low-attenuation identified. Again identified is dilation to the basilar artery. There is no shift of midline structures. The paranasal sinuses and mastoid air cells are clear. There are no osseous lesions. IMPRESSION: Equivocal increase in size in left putamen hemorrhage measuring 2.5 x 1.5 cm without demonstrable surrounding edema. No new areas of hemorrhage are identified. The aforementioned was discussed with Dr. Velasquez at 0406 hours.
--- NOTE | 2016-09-24 04:35 | NUR ---
0300 PATIENT'S SPEECH GARBLED AT THIS TIME- MOVES ALL 4 EXTREMITIES ON COMMAND, NO LIMB DRIFT, PUPILS 2MM AND REACTIVE TO LIGHT- DR SANCHEZ NOTIFIED AND IN AT BEDSIDE [address] SCAN WITH THIS RN IN ATTENDANCE 399 SPEECH REMAINS UNINTELLIGIBLE, PATIENT NO LONGER ABLE TO LIFT LOWER EXTREMITIES AGAINST GRAVITY
[2016-09-24 05:24] LABS: ABSOLUTE BASOPHIL COUNT 0 /CUMM (0.0-0.2); ABSOLUTE EOSINOPHIL COUNT 0.1 /CUMM (0.0-0.7); ABSOLUTE GRANULOCYTE CT 4.8 /CUMM (1.4-6.5); ABSOLUTE LYMPH COUNT 1.7 /CUMM (1.2-3.4); ABSOLUTE MONOCYTE COUNT 0.7 /CUMM (0.10-0.60); BASOPHIL % 0.5 % (0.0-2.0); EOSINOPHIL % 1.3 % (0-5); MEAN CORPUSCULAR HGB 28.8 PG (27.0-31.0); MEAN CORPUSCULAR HGB CONC 32.5 G/DL (33.0-37.0); MEAN CORPUSCULAR VOLUME 88.4 FL (81.0-99.0); MEAN PLATELET VOLUME 7.6 FL (7.4-10.4); PLATELET COUNT 296 /CUMM (130-400); RBC DISTRIBUTION WIDTH 15.2 % (11.5-14.5); RED BLOOD CELL CT 5.09 /CUMM (4.20-5.40); WHITE BLOOD CELL COUNT 7.4 /CUMM (4.8-10.8)
--- NOTE | 2016-09-24 05:38 | PN- Resident CRCU ---
Subjective HPI/CRCU Issues: Patient is a 89-year-old lady with PMH of TIA (in November 2015), seizures, osteoporosis, vitamin B12 deficiency (receiving monthly B12 injections), anxiety , pernicious anemia, left hip replacement sx in 2013, who was brought into the ED due to acute onset difficulty speaking as well as weakness in the legs. CRCU issues: 1- CVA s/p tPA with a hemorrhage detected on the 24h repeat CT in the putamen, no mass effect 2- worsened speech compared to last night, mild residual left sided facial droop , no other FNDs. 24 Hour Events: Laboratory Tests 09/24 0425 Chemistry Sodium (137 - 145 mmol/L) 140 Potassium (3.5 - 5.1 mmol/L) 4.0 Chloride (98 - 107 mmol/L) 103 Carbon Dioxide (22 - 30 mmol/L) 28 Anion Gap (5 - 16) 9 BUN (7 - 17 mg/dL) 9 Creatinine (0.5 - 1.0 mg/dL) 0.7 Estimated GFR (>60 ml/min) > 60 Glucose (65 - 99 mg/dL) 83 Calcium (8.4 - 10.2 mg/dL) 9.4 Phosphorus (2.5 - 4.5 mg/dL) 2.8 Magnesium (1.6 - 2.3 mg/dL) 1.8 Total Bilirubin (0.2 - 1.3 mg/dL) 0.7 AST (14 - 36 U/L) 42 H ALT (9 - 52 U/L) 93 H Albumin (3.5 - 5.0 g/dL) 3.7 Hematology CBC w Diff NO MAN DIFF REQ WBC (4.8 - 10.8 /CUMM) 7.4 RBC (4.20 - 5.40 /CUMM) 5.09 Hgb (12.0 - 16.0 G/DL) 14.6 Hct (37 - 47 %) 45.0 MCV (81.0 - 99.0 FL) 88.4 MCH (27.0 - 31.0 PG) 28.8 RDW (11.5 - 14.5 %) 15.2 H Plt Count (130 - 400 /CUMM) 296 MPV (7.4 - 10.4 FL) 7.6 Gran % (42.2 - 75.2 %) 65.0 Lymphocytes % (20.5 - 51.1 %) 23.2 Monocytes % (1.7 - 9.3 %) 10.0 H Eosinophils % (0 - 5 %) 1.3 Basophils % (0.0 - 2.0 %) 0.5 Absolute Granulocytes (1.4 - 6.5 /CUMM) 4.8 Absolute Lymphocytes (1.2 - 3.4 /CUMM) 1.7 Absolute Monocytes (0.10 - 0.60 /CUMM) 0.7 H Absolute Eosinophils (0.0 - 0.7 /CUMM) 0.1 Absolute Basophils (0.0 - 0.2 /CUMM) 0 PUBS MCHC (33.0 - 37.0 G/DL) 32.5 L Vital Signs Date Time Temp Pulse Resp B/P Pulse O2 O2 Flow FiO2 Ox Delivery Rate 09/24 0400 99 Room Air 09/24 0000 94 Room Air 09/24 0000 97.8 82 16 122/82 94 Room Air 09/23 2000 93 09/23 1641 Room Air Room Air 09/23 1600 98.3 93 16 136/84 94 Room Air 09/23 1600 94 Room Air 09/23 1200 98 Room Air Intake & Output 09/24 1600 09/24 0800 09/24 0000 Intake Total 630 600 Output Total 693 340 Balance -63 260 Intake, IV 630 600 Number 0 Bowel Movements Output, Urine 693 340 Objective Vital Signs & I&O Last 8 Hrs of Vitals and I&O: max temp 97.8 hr 68-88 sr, currently in 100s systolic bp 120-150 diastolic bp 76-98 HFNC 50% overnight 91-93% + 630 - 693 Exam General Appearance: no apparent distress, alert, awake, thin Head: atraumatic, left side facial droop Ears, Nose, Throat: normal ENT inspection Neck: supple, full range of motion Respiratory: normal breath sounds, chest non-tender, no respiratory distress Cardiovascular: regular rate/rhythm Gastrointestinal: normal bowel sounds, soft, non-tender Extremities: normal inspection, normal capillary refill, slight tigidity in passive moving of the extremities Cranial Nerves: facial asymmetry, dysarthria Skin: normal color, warm/dry Back: normal range of motion Current Medications: Current Medications Sig/Deion Start time Last Medication Dose Route Stop Time Status Admin Acetaminophen 1,000 MG Q6P PRN 09/24 1545 AC 09/24 N/A 1 UNIT IV 1544 Acetaminophen 650 MG Q6P PRN 09/24 1530 DC PO Acetaminophen 325 MG Q6P PRN 09/24 1515 DC PO Ampicillin Sodium/ 1,500 MG Q6 09/24 1800 AC 09/25 Sulbactam Sodium IV 0501 Sodium Chloride 100 ML Atorvastatin Calcium 80 MG 1700 09/23 1700 AC 09/24 PO 1715 Diclofenac Sodium 1 NENA 4 TIMES/DAY PRN 09/22 2014 AC 09/22 TOP 2354 Sodium Chloride 1,000 ML Q13H 09/22 1930 AC 09/24 IV 1510 Impression/Plan Impression/Problem List Impression: Patient is a 89-year-old lady with PMH of TIA (in November 2015), seizures (not on any treatment), osteoporosis, vitamin B12 deficiency (receiving monthly B12 injections), anxiety, pernicious anemia, left hip replacement sx in 2013, who was brought into the ED due to acute onset difficulty speaking as well as weakness in the legs. Patient received tPA and was admitted in the ICU for close monitoring. problem list and plan: CVA Acute onset expressive aphasia with left-sided facial droop and LE weakness ( acute ischemic stroke status post tPA). head CT was negtaive for acute intracranial pathology on admission, she received tPA. physical exam showed improvement the next day (yesterday) and reportedly the patient was able to talk , tell her name and , and where she is, however repeat CT after 24h in the evening showed hemorrhage in the putamen with no mass effect. A second head CT repeat was done in the morning after the patient had become dysarthric, which has shown a slight increase in the size of the same hemorrhage. We talked to Dr. Quintero on the phone, will monitor closely for now. * repeat swallow eval * continue Neurochecks Q1h * If deteriorate, repeat CT head without IV contrast * no aspirin is given, on hold for now * repeat LFTs shows imrpovement, will consider starting statin * Neurology on Board, recommended head CT in 72 hours * carotid Doppler ultrasound and echocardiogram * follow PT/OT consult [place] and fever [place] etiology EKG NSR, unremarkable except for tachycardia has had max Temp of 101.9, CXR unremarkable, sent UA UC and BC * IV acetaminophen for fever * follow up pancultures * IV unasyn started * cardilogy on board will follow recs * follwo up echo DVT px with Alps Diet - honey think and puree FULL CODE Problem List: 1. CVA (cerebral vascular accident) 2. Brain bleed Pain Ratin Tomorrow's Labs & Rationales: CBC (fever, possible penumonia) Plan DVT/Prophylaxis: mechanical
--- NOTE | 2016-09-24 05:56 | Event Note ---
Event Note Event Note: At around 3:30AM nursing reported that patient had slurred speech which i felt too upon my evaluation. Patient speech was non-coherent, she was oriented to place only, a stat CT head was obtained, which showed equivocal increase in size in left putamen hemorrhage measuring 2.5 x 1.5 cm without demonstrable surrounding edema but no new areas of hemorrhage were identified.
--- NOTE | 2016-09-24 07:50 | NUR ---
DR SANCHEZ MADE AWARE OF CHANGES IN [facility] SCORES- SPEECH REMAINS UNINTELLIGIBLE, PATIENT BECOMING RESTLESS AT TIMES, CLOSE OBSERVATION MAINTAINED, AWAITING AM MD ROUNDS
[2016-09-24 08:00] VITALS: BP 132/84
--- NOTE | 2016-09-24 09:22 | NUR ---
PHYSICAL THERAPY. Pt'S REPEAT HEAD CT DEMONSTRATES INCREASED HEMORRHAGE S/P TPA. DISCUSSED W/ NSG, NEUROLOGY CONSULT AND FURTHER WORK-UP PENDING, WILL DEFER PT EVALUATION TODAY AND F/U TOMORROW APPROPRIATE.
--- NOTE | 2016-09-24 10:38 | PN- CRCU ---
Subjective HPI/Critical Care Issues: The patient has worsening aphasia. She is not able to offer complaints. He was noted to be more tachycardic today. There were no overnight events reported. Objective Current Medications: Current Medications Sig/Deion Start time Last Medication Dose Route Stop Time Status Admin Aspirin 325 MG ONCE ONE 09/24 1999 CAN PO 09/23 2000 Atorvastatin Calcium 80 MG 1700 09/23 1700 AC 09/23 PO 1740 Diclofenac Sodium 1 NENA 4 TIMES/DAY PRN 09/22 2014 AC 09/22 TOP 2354 Sodium Chloride 1,000 ML Q13H 09/22 1930 AC 09/23 IV 2330 Vital Signs & I&O Last 24 Hrs of Vitals and I&O: Vital Signs Date Time Temp Pulse Resp B/P Pulse O2 O2 Flow FiO2 Ox Delivery Rate 09/24 0931 Room Air Room Air 09/24 0925 Room Air Room Air 09/24 0800 98.7 104 18 132/84 92 Room Air 09/24 0800 93 Room Air 09/24 0400 99 Room Air 09/24 0000 94 Room Air 09/24 0000 97.8 82 16 122/82 94 Room Air 09/23 2000 93 09/23 1641 Room Air Room Air 09/23 1600 98.3 93 16 136/84 94 Room Air 09/23 1600 94 Room Air 09/23 1200 98 Room Air Intake & Output 09/24 1600 09/24 0800 09/24 0000 Intake Total 630 600 Output Total 693 340 Balance -63 260 Intake, IV 630 600 Number 0 Bowel Movements Output, Urine 693 340 Physical Exam General Appearance: no apparent distress, alert, awake, comfortable, thin Head: atraumatic Eyes: Bilateral: normal appearance (unable to follow directions). Neck: supple Respiratory: normal breath sounds, chest non-tender, no respiratory distress Cardiovascular: regular rate/rhythm Gastrointestinal: normal bowel sounds, soft, non-tender Back: normal inspection, normal range of motion Extremities: no edema Skin: intact Results Last 24 Hrs of Lab Results: Laboratory Tests 09/24/16 0425: Anion Gap 9, Estimated GFR > 60, Glucose 83, Calcium 9.4, Phosphorus 2.8, Magnesium 1.8, Total Bilirubin 0.7, AST 42 H, ALT 93 H, Troponin I Pending, Albumin 3.7, TSH 1.350, Free T4 1.03, CBC w Diff NO MAN DIFF REQ, RBC 5.09, MCV 88.4, MCH 28.8, RDW 15.2 H, MPV 7.6, Gran % 65.0, Lymphocytes % 23.2, Monocytes % 10.0 H, Eosinophils % 1.3, Basophils % 0.5, Absolute Granulocytes 4.8, Absolute Lymphocytes 1.7, Absolute Monocytes 0.7 H, Absolute Eosinophils 0.1, Absolute Basophils 0, PUBS MCHC 32.5 L Impression/Plan Impression/Plan Impression/Plan: Impression: 1. 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 2. 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 3. Previous seizures, no evidence of seizures at present. 4. GERD. 5. Osteoporosis. 6. Chronic anemia. 7. Macular degeneration. Recommendations: * Continue hourly neuro checks. Monitor for seizures. * Will continue to followneurology input. * Continue aspiration precautions. * Etiology consult called for new onset tachycardia. * OT/PT consult. The patient will need to walk with a Rollator. She also has a special orthotic shoe which is necessary for ambulation given her previous hip fracture. * Alps for DVT prophylaxis. * Avoid all anticoagulation due to hemorrhagic conversion. * Continue high-dose statins. * Continue all supportive care.
--- NOTE | 2016-09-24 11:42 | Cons- Cardiology ---
General Information and HPI Consulting Request Date of Consult: 09/24/16 Requested By: MERCEDES JORGENSEN MD Reason for Consult: ISCHEMIC STROKE WITH PERSISTENT TACHYCARDIA Source of Information: old records Exam Limitations: unable to give history History of Present Illness: The patient is an 89-year-old female with a past medical history of prior TIA in November 2015, seizure disorder, osteoporosis, vitamin B12 deficiency, pernicious anemia, etc. The patient was brought to the emergency room with acute onset of speech difficulties and lower extremity weakness. On the patient was felt to be having an acute neurologic event and did receive thrombolytic therapy. Today, the patient is alert but nonconversant. I was asked see the patient for new onset of persistent sinus tachycardia which appears to have started earlier today. Prior to this morning, the patient's heart rate was in the 80-90 range. This morning, she is persistently tachycardiac in sinus tachycardia at a rate of 120-125/m. As far as I can discern, there are no other obvious symptoms. Allergies/Medications Allergies: Coded Allergies: No Known Allergies (09/22/16) Home Med List: Aspirin (Aspirin*) 325 MG TABLET 1 TAB PO DAILY BLOOD THINNER (Reported) Cyanocobalamin (Vitamin B-12) (Vitamin B12) 2,500 MCG TAB.CHEW 1 TAB PO Q MONTH DEFICIENCY (Reported) Montelukast Sodium 10 MG TABLET 1 TAB PO DAILY ALLERGIES (Reported) Current Medications: Current Medications Sig/Deion Start time Last Medication Dose Route Stop Time Status Admin Aspirin 325 MG ONCE ONE 09/24 1999 CAN PO 09/23 2000 Atorvastatin Calcium 80 MG 1700 09/23 1700 AC 09/23 PO 1740 Diclofenac Sodium 1 NENA 4 TIMES/DAY PRN 09/22 2014 AC 09/22 TOP 2354 Sodium Chloride 1,000 ML Q13H 09/22 1930 AC 09/23 IV 2330 Past History Travel History Traveled to [place] past 21 day No Medical History Neurological: dementia, TIA EENT: macular degeneration Gastrointestinal: GERD Musculoskeletal: osteoporosis, UNSTEADY GAIT HIP FX Psychiatric: anxiety Endocrine: B12 DEFICIENCY Blood Disorders: anemia Surgical History Surgical History: unobtainable Family History Relations & Conditions If Any: MOTHER CVA SISTER FH: digestive disorders Psychosocial History Smoking Status: Never Smoked ETOH Use: 1-2 glass of wine or champaigne/day, stopped recently due to elevated liver enzymes Illicit Drug Use: UTD Functional Ability Ambulation: walker, rolling walker since she had hip replacement surgery Exam & Diagnostic Data Vital Signs and I&O Vital Signs Date Time Temp Pulse Resp B/P Pulse O2 O2 Flow FiO2 Ox Delivery Rate 09/24 0931 Room Air Room Air 09/24 0925 Room Air Room Air 09/24 0800 98.7 104 18 132/84 92 Room Air 09/24 0800 93 Room Air 09/24 0400 99 Room Air 09/24 0000 94 Room Air 09/24 0000 97.8 82 16 122/82 94 Room Air 09/23 2000 93 09/23 1641 Room Air Room Air 09/23 1600 98.3 93 16 136/84 94 Room Air 09/23 1600 94 Room Air 09/23 1200 98 Room Air Intake & Output 09/24 1600 09/24 0800 09/24 0000 09/23 1600 09/23 0800 09/23 0000 Intake Total 630 600 810 757 225 Output Total 693 340 850 625 490 Balance -63 260 -40 132 -265 Intake, IV 630 600 690 757 225 Intake, Oral 120 Number 0 Bowel Movements Output, Urine 693 340 850 625 490 Patient 116 lb Weight Physical Exam: General Appearance Alert, no acute distress; vital signs stable Skin normal HEENT normal Neck Supple, No JVD; carotids 2+ bilaterally Cardiovascular Normal S1, Normal S2, 1/6 systolic murmur left sternal border Lungs clear to auscultation and percussion bilaterally Abdomen Soft, No Tenderness Neurological noted Extremities No Cyanosis, No Edema, Normal Pulses, No Tenderness/Swelling, left leg is shorter than the right leg, s/p hip replacement, has special shoe to wear for walking Vascular pulses 2+ and equal bilaterally Labs/West Results: Laboratory Tests 09/24 09/23 0425 0500 Chemistry Sodium (137 - 145 mmol/L) 140 137 Potassium (3.5 - 5.1 mmol/L) 4.0 4.6 Chloride (98 - 107 mmol/L) 103 101 Carbon Dioxide (22 - 30 mmol/L) 28 26 Anion Gap (5 - 16) 9 10 BUN (7 - 17 mg/dL) 9 11 Creatinine (0.5 - 1.0 mg/dL) 0.7 0.7 Estimated GFR (>60 ml/min) > 60 > 60 Glucose (65 - 99 mg/dL) 83 86 Calcium (8.4 - 10.2 mg/dL) 9.4 9.4 Phosphorus (2.5 - 4.5 mg/dL) 2.8 3.4 Magnesium (1.6 - 2.3 mg/dL) 1.8 1.8 Total Bilirubin (0.2 - 1.3 mg/dL) 0.7 0.9 AST (14 - 36 U/L) 42 H 80 H ALT (9 - 52 U/L) 93 H 126 H Troponin I (< 0.11 ng/ml) Pending Albumin (3.5 - 5.0 g/dL) 3.7 4.0 Triglycerides (<150 mg/dL) 98 Cholesterol (<200 MG/DL) 173 LDL Cholesterol, Calc (65 - 129 mg/dL) 77 HDL Cholesterol (40 - 60 mg/dL) 77 H Cholesterol/HDL Ratio (0.00 - 4.23 %) 2 TSH (0.270 - 4.200 uIU/mL) 1.350 Free T4 (0.85 - 1.93 ng/dL) 1.03 Coagulation APTT (25 - 37 SEC) 27 Hematology CBC w Diff NO MAN DIFF REQ NO MAN DIFF REQ WBC (4.8 - 10.8 /CUMM) 7.4 8.7 RBC (4.20 - 5.40 /CUMM) 5.09 5.26 Hgb (12.0 - 16.0 G/DL) 14.6 15.1 Hct (37 - 47 %) 45.0 46.4 MCV (81.0 - 99.0 FL) 88.4 88.1 MCH (27.0 - 31.0 PG) 28.8 28.7 RDW (11.5 - 14.5 %) 15.2 H 15.1 H Plt Count (130 - 400 /CUMM) 296 262 MPV (7.4 - 10.4 FL) 7.6 7.9 Gran % (42.2 - 75.2 %) 65.0 67.0 Lymphocytes % (20.5 - 51.1 %) 23.2 23.9 Monocytes % (1.7 - 9.3 %) 10.0 H 7.6 Eosinophils % (0 - 5 %) 1.3 0.9 Basophils % (0.0 - 2.0 %) 0.5 0.6 Absolute Granulocytes (1.4 - 6.5 /CUMM) 4.8 5.8 Absolute Lymphocytes (1.2 - 3.4 /CUMM) 1.7 2.1 Absolute Monocytes (0.10 - 0.60 /CUMM) 0.7 H 0.7 H Absolute Eosinophils (0.0 - 0.7 /CUMM) 0.1 0.1 Absolute Basophils (0.0 - 0.2 /CUMM) 0 0 PUBS MCHC (33.0 - 37.0 G/DL) 32.5 L 32.5 L Urines Urinalysis LIGHT H Urine Color (YEL,AMB,STR) YEL Urine Clarity (CLEAR) HAZY H Urine pH (5.0 - 8.0) 7.0 Ur Specific [place] (1.001 - 1.035) 1.010 Urine Protein (NEG,<30 MG/DL) NEG Urine Ketones (NEG) NEG Urine Nitrite (NEG) NEG Urine Bilirubin (NEG) NEG Urine Urobilinogen (0.1 - 1.0 EU/dl) 0.2 Ur Leukocyte Esterase (NEG) NEG Ur Microscopic SEDIMENT EXAMINED Urine RBC (0 - 5 /HPF) 25-50 H Urine WBC (0 - 2 /HPF) RARE Urine Bacteria (NEG/NONE) FEW H Urine Mucus (FEW,NONE) FEW Urine Hemoglobin (NEG) LARGE H Urine Glucose (N MG/DL) NEG 09/22 1721 Chemistry Sodium (137 - 145 mmol/L) 139 Potassium (3.5 - 5.1 mmol/L) 4.1 Chloride (98 - 107 mmol/L) 100 Carbon Dioxide (22 - 30 mmol/L) 29 Anion Gap (5 - 16) 11 BUN (7 - 17 mg/dL) 14 Creatinine (0.5 - 1.0 mg/dL) 0.7 Estimated GFR (>60 ml/min) > 60 BUN/Creatinine Ratio (7 - 25 %) 20.0 Glucose (65 - 99 mg/dL) 95 Calcium (8.4 - 10.2 mg/dL) 9.5 Total Bilirubin (0.2 - 1.3 mg/dL) 0.4 AST (14 - 36 U/L) 102 H ALT (9 - 52 U/L) 152 H Alkaline Phosphatase (<127 U/L) 224 H Total Protein (6.3 - 8.2 g/dL) 6.8 Albumin (3.5 - 5.0 g/dL) 3.8 Globulin (1.9 - 4.2 gm/dL) 3.0 Albumin/Globulin Ratio (1.1 - 2.2 %) 1.3 Coagulation PT (9.4 - 12.5 SEC) 11.3 INR (0.90 - 1.19) 1.08 APTT (25 - 37 SEC) 31 Hematology CBC w Diff NO MAN DIFF REQ WBC (4.8 - 10.8 /CUMM) 7.1 RBC (4.20 - 5.40 /CUMM) 4.93 Hgb (12.0 - 16.0 G/DL) 14.4 Hct (37 - 47 %) 43.2 MCV (81.0 - 99.0 FL) 87.7 MCH (27.0 - 31.0 PG) 29.3 RDW (11.5 - 14.5 %) 15.1 H Plt Count (130 - 400 /CUMM) 335 MPV (7.4 - 10.4 FL) 7.4 Gran % (42.2 - 75.2 %) 64.9 Lymphocytes % (20.5 - 51.1 %) 24.2 Monocytes % (1.7 - 9.3 %) 9.0 Eosinophils % (0 - 5 %) 1.6 Basophils % (0.0 - 2.0 %) 0.3 Absolute Granulocytes (1.4 - 6.5 /CUMM) 4.6 Absolute Lymphocytes (1.2 - 3.4 /CUMM) 1.7 Absolute Monocytes (0.10 - 0.60 /CUMM) 0.6 Absolute Eosinophils (0.0 - 0.7 /CUMM) 0.1 Absolute Basophils (0.0 - 0.2 /CUMM) 0 PUBS MCHC (33.0 - 37.0 G/DL) 33.4 Diagnostic Data EKG Results Sinus tachycardia; left anterior hemiblock; poor R wave progression across the precordium. The possibility of an old anterior infarct cannot be excluded. Other Results HEAD CT: FINDINGS: There are no pathologic extra-axial fluid collections. The lateral, third, fourth ventricles are prominent, but stable, age-appropriate and concordant with the appearance of the sulci. Again identified is a focus of hemorrhage within the left putamen. This is equivocally increased in size from prior exam measuring 2.5 x 1.5 cm. There is no surrounding edema. No additional areas of intraparenchymal hemorrhage are identified. There is stable periventricular low-attenuation identified. Again identified is dilation to the basilar artery. There is no shift of midline structures. The paranasal sinuses and mastoid air cells are clear. There are no osseous lesions. IMPRESSION: Equivocal increase in size in left putamen hemorrhage measuring 2.5 x 1.5 cm without demonstrable surrounding edema. No new areas of hemorrhage are identified. CAROTID DOPPLER: IMPRESSION: Atherosclerotic disease at the carotid bifurcations bilaterally. There is no hemodynamically significant internal carotid artery stenosis by sonographic criteria. Assessment/Plan Assessment/Plan Impression: 1. 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 2. 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 3. Persistent sinus tachycardia of unclear etiology-at the present time, the etiology of the patient's new onset sinus tachycardia is unclear. The patient's family note that her heart rate has been elevated in the past. On the health plan advisor there is no evidence of any other significant arrhythmias other than atrial and ventricular ectopy. There has been no documented SVT or atrial fibrillation. 4. Previous seizures, no evidence of seizures at present. 5. GERD. 6. Osteoporosis. 7. Chronic anemia. 8. Macular degeneration. Her conditions: -Keep the patient on the health plan advisor -Echocardiogram pending to rule out the possibility of occult cardiomyopathy or occult valvular Disease -The patient's blood work has all been unrevealing so far. -For now, I do not see any reason for pharmacologic intervention for the tachycardia. I would continue to monitor the patient for now. -Further plans after the echocardiogram is available for review Consult Acknowledgment - Thank you for your consult request.
--- NOTE | 2016-09-24 12:00 | NUR ---
Patient is awake and aphasic, does not answer questions appropriately and speech is garbled and slurred. She can move all extremities occasionally to command. Left hand grasp is strong and right appears weaker. She is able to lift both extremities off the bed. A 1:1 sitter is now at the bedside for patient safety for continued attempts of getting out of bed. NIH-5. Pupils are 2mm equal and brisk. Afebrile. Sinus tachycardia with a 1st degree AV block on the tele monitor, heart rate has now increased up to the 120-130's. cardiology was consulted and Dr. Schroeder in to see patient. ECHO is ordered. On room air, lungs clear. O2 sats 93-96%. Abdomen is soft and non tender with + bowel sounds. Swallow evaluation reordered and speech to be in to assess. Swallow appeared to be delayed this morning when feeding breakfast. Pop in place draining clear yellow urine- urine culture sent per order. Skin remains intact. RLE with trace edema. Eccymotic areas noted to extremities. NS infusing @75mls/hr. No s/s of pain are currently noted. Pts daughter at the bedside and updated on POC. Neuro to re-evaluate and was notified of changes. Will continue to closely monitor patient.
--- NOTE | 2016-09-24 13:19 | PN- Neurology ---
Subjective Subjective: Aphasia following stroke and secondary hemorrhagic transformation Review of Systems: Unobtainable due to her communication deficit Objective Vital Signs and I&Os Vital Signs Date Time Temp Pulse Resp B/P Pulse O2 O2 Flow FiO2 Ox Delivery Rate 09/24 1200 94 Room Air 09/24 0931 Room Air Room Air 09/24 0925 Room Air Room Air 09/24 0800 98.7 104 18 132/84 92 Room Air 09/24 0800 93 Room Air 09/24 0400 99 Room Air 09/24 0000 94 Room Air 09/24 0000 97.8 82 16 122/82 94 Room Air 09/23 2000 93 09/23 1641 Room Air Room Air 09/23 1600 98.3 93 16 136/84 94 Room Air 09/23 1600 94 Room Air Intake & Output 09/24 1600 09/24 0800 09/24 0000 09/23 1600 09/23 0800 09/23 0000 Intake Total 630 600 810 757 225 Output Total 693 340 850 625 490 Balance -63 260 -40 132 -265 Intake, IV 630 600 690 757 225 Intake, Oral 120 Number 0 Bowel Movements Output, Urine 693 340 850 625 490 Patient 116 lb Weight Patient is sitting up in bed, awake and alert. She was globally aphasic. She was unable to follow simple command and speech was unintelligible. She did make some effort to produce sounds. The face was symmetric. She was able to swallow pured food. There appeared to be a mild drift of the right upper extremity deep tendon reflexes were symmetric. The right plantar was extensor; the left plantar was flexor. Current Medications: Current Medications Sig/Deion Start time Last Medication Dose Route Stop Time Status Admin Aspirin 325 MG ONCE ONE 09/24 1999 CAN PO 09/23 2000 Atorvastatin Calcium 80 MG 1700 09/23 1700 AC 09/23 PO 1740 Diclofenac Sodium 1 NENA 4 TIMES/DAY PRN 09/22 2014 AC 09/22 TOP 2354 Sodium Chloride 1,000 ML Q13H 09/22 1930 AC 09/23 IV 2330 Assessment/Plan Assessment: Day #2, status post ischemic stroke complicated by hemorrhagic transformation following administration of TPA. She is stable neurologically and hemodynamically however her aphasia is profound at this time. Plan: Thrust of treatment going forward will be that of ongoing speech, occupational and physical therapy. Aspirin should be avoided until there is resolution of her blood on follow-up CT scan. Should she continue to remain clinically stable , I would repeat another CT in 72 hours. We would advocate admission to a short -term facility with ability to do multimodal rehabilitation
--- NOTE | 2016-09-24 14:23 | NUR ---
OCCUPATIONAL THERAPY NOTE: CHART REVIEWED, PT WITH WORSENING SYMPTOMS, OT CX TODAY AND WILL F/U WHEN MEDICALLY APPROPRIATE.
[2016-09-24 16:00] VITALS: BP 138/70
--- NOTE | 2016-09-24 16:59 | RADIOLOGY REPORT ---
EXAMINATION: XR PORTABLE CHEST CLINICAL INFORMATION: Fever. Dysphasia. COMPARISON: None TECHNIQUE: Portable AP view of the chest was obtained. 4:40 PM FINDINGS: Lung apices not included on study. Visualized lungs are clear. No pulmonary vascular congestion. No pleural effusion. Heart size is normal. Cardiac and mediastinal contours are normal. There are vascular wall calcifications of the thoracic aorta. IMPRESSION: No acute abnormality of the chest.
--- NOTE | 2016-09-24 18:44 | NUR ---
At 1500 patients temp noted to be 101.9. Dr. Greco notified. Blood cultures drawn per order- started on IV unasyn every 6 hours, and portable chest xray completed. 1 gram IV tylenol given and most recent temp now 99.1. Will continue to closely monitor patient.
--- NOTE | 2016-09-24 18:48 | ECHOCARDIOGRAM REPORT ---
NEVILLE GERMAN Age: 89 : 1925 Gender: F Exam Date: 09/24/2016 10:48 Exam Location: [facility] Ht (in): 62 Wt (lb): 116 BSA: 1.52 BP: 132 / 84 Ordering Physician: CHAD PERALTA MD Referring Physician: CHAD PERALTA MD Technologist: Adriana Bronson Room Number: 112 Indications: CARDIOMYOPATHY Rhythm: Sinus Technical Quality: Poor, Very technically difficult study FINDINGS Left Ventricle Normal size left ventricle. No obvious regional wall motion abnormalities. Normal left ventricular ejection fraction estimated at 60-65%. Right Ventricle Right ventricle not well visualized. Right Atrium Right atrium not well visualized. Left Atrium Left atrial size at the upper limits of normal. Mitral Valve Mitral valve thickened. Aortic Valve Diffuse thickening (sclerosis) of the aortic valve cusps without reduced excursion. Mild aortic regurgitation. Tricuspid Valve Tricuspid valve not well visualized. Pulmonic Valve Pulmonic valve not well visualized. Pericardium Small pericardial effusion. Great Vessels Aortic root and proximal ascending aorta not well visualized. CONCLUSIONS 1. This was a very limited and extremely difficult examination. 2. Aortic sclerosis is present with aortic insufficiency that appears to be mild in severity. 3. Mitral leaflet thickening is present but the valve was not optimally assessed. 4. A small pericardial effusion is present. 5. The left ventricular chamber size and systolic function appear normal. 6. The right heart structures were not optimally visualized. The RV systolic pressure could not be assessed on this examination. 7. A followup examination is suggested when the patient;s heart rate is better controlled. 8. There were no embolic sources identified on this examination, however, if clinically indicated, a DONNA would better exclude potential embolic sources. Ai Schroeder M.D. (Electronically Signed) Final Date: 24 September 2016 18:48 MEASUREMENTS (Male / Female) Normal Values 2D ECHO LV Diastolic Diameter PLAX 2.9 cm 4.2 - 5.9 / 3.9 - 5.3 cm LV Systolic Diameter PLAX 1.4 cm 2.1 - 4.0 cm LV Fractional Shortening PLAX 51.7 % 25 - 46 % LV Ejection Fraction 2D Teich 84.3 % IVS Diastolic Thickness 1.3 cm LVPW Diastolic Thickness 1.3 cm LV Relative Wall Thickness 0.9 LVOT Diameter 1.9 cm Aortic Root Diameter 3.5 cm LA Systolic Diameter LX 1.8 cm 3.0 - 4.0 / 2.7 - 3.8 cm DOPPLER AV Peak Velocity 116.0 cm/s AV Peak Gradient 5.4 mmHg AV Mean Velocity 75.7 cm/s AV Mean Gradient 3.0 mmHg AV Velocity Time Integral 17.0 cm LVOT Peak Velocity 74.4 cm/s LVOT Peak Gradient 2.2 mmHg LVOT Mean Velocity 46.5 cm/s LVOT Mean Gradient 1.0 mmHg LVOT Velocity Time Integral 9.3 cm LVOT Stroke Volume 26.4 cm AV Area Cont Eq vti 1.6 cm AV Area Cont Eq pk 1.8 cm MV Peak Velocity 243.0 cm/s MV Peak Gradient 23.6 mmHg MV Mean Velocity 133.0 cm/s MV Mean Gradient 9.0 mmHg Mitral E Point Velocity 123.0 cm/s Mitral A Point Velocity 57.8 cm/s Mitral E to A Ratio 2.1 MV PHT Velocity 262.0 cm/s MV Deceleration [place] 2056.0 cm/s MV Pressure Half Time 38.2 ms MV Area PHT 5.8 cm MV Deceleration Time 123.0 ms
--- NOTE | 2016-09-24 22:35 | NUR ---
NEVILLE IS ALERT, UNINTELLIGABLE/GARBLED SPEECH, CURRENTLY SCORING 4 ON NIH SCALE, ABLE TO OBEY COMMANDS TO MAKE FISTS AND OPEN AND CLOSE EYES. GEORGE PATENT AND DRAINING CLEAR YELLOW URINE. PT IS ON RA, O2 SAT 99%. SITTER BRITTON PRESENT. IV NS INFUSING AT 75ML/HR INTO #20 IN RF. VITALS ARE STABLE. NO S/S BLEEDING NOTED. WILL CONTINUE TO CLOSELY MONITOR.
[2016-09-25] VITALS: BP 128/64
--- NOTE | 2016-09-25 06:45 | NUR ---
NEVILLE IS CURRENTLY AOX3. SLOW TO RESPOND, CONTINUES WTIH SLURRED SPEECH AND MILD L FACIAL DROOP. SOME APHASIA NOTED BUT NEVILLE IS ABLE TO ANSWER MOST QUESTIONS APPROPRIATELY AND OBEY COMMANDS. KNOWS IT IS SEPTEMBER AND NEAR EASTER TIME. KNOWS SHE IS IN [facility]. NO DRIFT NOTED IN BUE OR BLE. VITALS HAVE BEEN STABLE. WILL CONTINUE TO CLOSELY MONITOR.
--- NOTE | 2016-09-25 07:02 | PN- Resident CRCU ---
Subjective HPI/CRCU Issues: Ms Sharma was seen and examined this morning. She is resting comfortably in bed. She is alert and oriented 3. She is aware of the reason why she has been admitted to the hospital. She reports no sensorimotor deficits. She reports a decreased by mouth intake owing to decreased appetite. The patient denies any fever, chills, nausea, vomiting. She is currently comfortable. She has a sitter in place. Objective Vital Signs & I&O Last 8 Hrs of Vitals and I&O: max temp hr sr systolic bp diastolic bp Room Air Exam General Appearance: well developed/nourished, no apparent distress, alert, awake , comfortable Cardiovascular: regular rate/rhythm Gastrointestinal: normal bowel sounds, soft, non-tender, no organomegaly Extremities: normal inspection, normal capillary refill, normal range of motion, no edema Cranial Nerves: normal hearing, normal speech, CN 2-12 WNL Current Medications: Current Medications Sig/Deion Start time Last Medication Dose Route Stop Time Status Admin Acetaminophen 1,000 MG Q6P PRN 09/24 1545 AC 09/24 N/A 1 UNIT IV 1544 Acetaminophen 650 MG Q6P PRN 09/24 1530 DC PO Acetaminophen 325 MG Q6P PRN 09/24 1515 DC PO Ampicillin Sodium/ 1,500 MG Q6 09/24 1800 AC 09/25 Sulbactam Sodium IV 0501 Sodium Chloride 100 ML Atorvastatin Calcium 80 MG 1700 09/23 1700 AC 09/24 PO 1715 Diclofenac Sodium 1 NENA 4 TIMES/DAY PRN 09/22 2015 AC 09/22 TOP 2354 Sodium Chloride 1,000 ML Q13H 09/22 1930 DC 09/24 IV 1510 Impression/Plan Impression/Problem List Impression: Patient is a 89-year-old lady with PMH of TIA (in November 2015), seizures (not on any treatment), osteoporosis, vitamin B12 deficiency (receiving monthly B12 injections), anxiety, pernicious anemia, left hip replacement sx in 2013, who was brought into the ED due to acute onset difficulty speaking as well as weakness in the legs. Patient received tPA and was admitted in the ICU for close monitoring. problem list and plan: CVA Acute onset expressive aphasia with left-sided facial droop and LE weakness ( acute ischemic stroke status post tPA). head CT was negtaive for acute intracranial pathology on admission, she received tPA. physical exam showed improvement the next day (yesterday) and reportedly the patient was able to talk , tell her name and , and where she is, however repeat CT after 24h in the evening showed hemorrhage in the putamen with no mass effect. A second head CT repeat was done in the morning after the patient had become dysarthric, which has shown a slight increase in the size of the same hemorrhage. We talked to Dr. Quintero on the phone, will monitor closely for now. * repeat swallow eval, Consider MBS * continue Neurochecks Q1h * If deteriorate, repeat CT head without IV contrast * no aspirin is given, on hold for now * repeat LFTs shows imrpovement,Continue statin * Neurology on Board, recommended head CT in 72 hours * carotid Doppler ultrasound: Atherosclerotic disease at the carotid bifurcations bilaterally. There is no hemodynamically significant internal carotid artery stenosis by sonographic criteria. * follow PT/OT consult [place] and fever, #Resolved [place] etiology EKG NSR, unremarkable except for tachycardia has had max Temp of 101.9, 09/24/2016, CXR unremarkable, sent UA UC and BC Currently Afebrile * IV acetaminophen for fever * follow up pancultures * Continue unasyn started, may consider following off ABX * cardilogy on board will follow recs * follwo up echo, results back DONNA May be considered DVT px with Alps Diet - honey think and puree FULL CODE Problem List: 1. Brain bleed 2. CVA (cerebral vascular accident) Pain Ratin Tomorrow's Labs & Rationales: CBC ICU Bundle Plan DVT/Prophylaxis: mechanical
[2016-09-25 08:00] VITALS: BP 116/60
--- NOTE | 2016-09-25 09:00 | NUR ---
Patient is alert and oriented x'd 3, able to follow commands- hand grasps and pedal pushes are strong and equal bilaterally. No drift is noted. Speech is slow and slurred but appropriate. NIH-1. 1st degree AV block on tele monitor, HR= 80's. SBP: 110-120's and pt denies chest pain. On room air, lungs clear O2 sat 96%. Abdomen is soft and non tender with + bowel sounds- attempted to use the bedpan. On a regular puree/honey thick diet- set-up for meals but can feed herself- consuming approx 50% of meals. Pop in place draining clear yellow urine. No areas of pressure injury are noted. Eccymotic areas noted to extremties. Patient denies pain. NS infusing at 75mls/hr. Vitals currently stable. PT to evaluate and activity is OOB to chair. Will continue to closely monitor.
--- NOTE | 2016-09-25 10:28 | PN- Pulmonary ---
Subjective HPI/Critical Care Issues: Patient is awake alert out of bed speaking more clearly. Objective Current Medications: Current Medications Sig/Deion Start time Last Medication Dose Route Stop Time Status Admin Acetaminophen 1,000 MG Q6P PRN 09/24 1545 AC 09/24 N/A 1 UNIT IV 1544 Acetaminophen 650 MG Q6P PRN 09/24 1530 DC PO Acetaminophen 325 MG Q6P PRN 09/24 1515 DC PO Ampicillin Sodium/ 1,500 MG Q6 09/24 1800 AC 09/25 Sulbactam Sodium IV 0501 Sodium Chloride 100 ML Atorvastatin Calcium 80 MG 1700 09/23 1700 AC 09/24 PO 1715 Diclofenac Sodium 1 NENA 4 TIMES/DAY PRN 09/22 2015 AC 09/22 TOP 2354 Sodium Chloride 1,000 ML Q13H 09/22 1930 DC 09/24 IV 1510 Vital Signs & I&O Last 24 Hrs of Vitals and I&O: Vital Signs Date Time Temp Pulse Resp B/P Pulse O2 O2 Flow FiO2 Ox Delivery Rate 09/25 0800 97.9 80 18 116/60 94 Room Air 09/25 0800 94 Room Air 09/25 0000 98.6 87 18 128/64 98 Room Air 09/24 1709 99.7 09/24 1600 100.0 127 16 138/70 94 Room Air 09/24 1600 94 Room Air 09/24 1544 101.8 09/24 1500 101.9 09/24 1200 94 Room Air Intake & Output 09/25 1600 09/25 0800 09/25 0000 Intake Total 732 745.5 Output Total 310 430 Balance 422 315.5 Intake, IV 612 625.5 Intake, Oral 120 120 Output, Urine 310 430 Her oxygen saturation 94% exam for chest shows clear lung abdullahi cardiac exam shows regular S1 and S2 without murmurs Impression/Plan Impression/Plan Impression/Plan: 89-year-old woman status post stroke appears improved with improved aphasia Recommendations: Continue current level of care. Follow-up neurology and consider transfer to the floor with their approval
--- NOTE | 2016-09-25 13:00 | NUR ---
At approx 1230, patients speech more garbled and she was unable to answer questions appropriately however she was able to follow simple commands. Event lasted approx 45 seconds before she improved. Speech returned to being slightly slurred and slow but appropriate and easy to understand. Dr. Hernandez was notified. No need for CT scan of the head. Patient now a tele hold. Vitals stable. Will continue to closely monitor patient.
--- NOTE | 2016-09-25 13:24 | PN- Neurology ---
Subjective Subjective: speech disturbance Objective Vital Signs and I&Os Vital Signs Date Time Temp Pulse Resp B/P Pulse O2 O2 Flow FiO2 Ox Delivery Rate 09/25 1200 97 Room Air 09/25 0800 97.9 80 18 116/60 94 Room Air 09/25 0800 94 Room Air 09/25 0000 98.6 87 18 128/64 98 Room Air 09/24 1709 99.7 09/24 1600 100.0 127 16 138/70 94 Room Air 09/24 1600 94 Room Air 09/24 1544 101.8 09/24 1500 101.9 Intake & Output 09/25 1600 09/25 0800 09/25 0000 09/24 1600 09/24 0800 09/24 0000 Intake Total 732 745.5 750 630 600 Output Total 310 430 900 693 340 Balance 422 315.5 -150 -63 260 Intake, IV 612 625.5 630 630 600 Intake, Oral 120 120 120 Number 0 Bowel Movements Output, Urine 310 430 900 693 340 Awake and alert . Up in a chair. She fed herself. She was able to converse with mild hesitancy. The face was symmetric. No gross lateralizing weakness. Current Medications: Current Medications Sig/Deion Start time Last Medication Dose Route Stop Time Status Admin Acetaminophen 1,000 MG Q6P PRN 09/24 1545 AC 09/24 N/A 1 UNIT IV 1544 Acetaminophen 650 MG Q6P PRN 09/24 1530 DC PO Acetaminophen 325 MG Q6P PRN 09/24 1515 DC PO Ampicillin Sodium/ 1,500 MG Q6 09/24 1800 AC 09/25 Sulbactam Sodium IV 1242 Sodium Chloride 100 ML Atorvastatin Calcium 80 MG 1700 09/23 1700 AC 09/24 PO 1715 Diclofenac Sodium 1 NENA 4 TIMES/DAY PRN 09/22 2015 AC 09/22 TOP 2354 Sodium Chloride 1,000 ML Q13H 09/22 1930 DC 09/24 IV 1510 Assessment/Plan Assessment: Dramatic improvement over the past 24 hours in regard to her aphasia. 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 Plan: The patient is stable to be transferred to the floor. She will need ongoing speech, occupational and physical therapy. I would repeat her CT on Tuesday or Tuesday.
[2016-09-25 13:35] LABS: ABSOLUTE BASOPHIL COUNT 0 /CUMM (0.0-0.2); ABSOLUTE EOSINOPHIL COUNT 0.1 /CUMM (0.0-0.7); ABSOLUTE GRANULOCYTE CT 6.8 /CUMM (1.4-6.5); ABSOLUTE MONOCYTE COUNT 0.7 /CUMM (0.10-0.60); BASOPHIL % 0.3 % (0.0-2.0); EOSINOPHIL % 0.8 % (0-5); GRANULOCYTE % 70.6 % (42.2-75.2); HEMATOCRIT 43.7 % (37-47); MEAN CORPUSCULAR HGB 28.8 PG (27.0-31.0); MEAN CORPUSCULAR HGB CONC 32.5 G/DL (33.0-37.0); MEAN CORPUSCULAR VOLUME 88.4 FL (81.0-99.0); MEAN PLATELET VOLUME 7.5 FL (7.4-10.4); PLATELET COUNT 288 /CUMM (130-400); RBC DISTRIBUTION WIDTH 15.2 % (11.5-14.5); RED BLOOD CELL CT 4.94 /CUMM (4.20-5.40); WHITE BLOOD CELL COUNT 9.6 /CUMM (4.8-10.8)
--- NOTE | 2016-09-25 14:45 | PN- Cardiology ---
Subjective Subjective: The patient is clinically unchanged today. Stable from a cardiac standpoint. Heart rate is better controlled today with fever control. No other arrhythmias detected Objective Vital Signs and I&Os Vital Signs Date Time Temp Pulse Resp B/P Pulse O2 O2 Flow FiO2 Ox Delivery Rate 09/25 1200 97 Room Air 09/25 0800 97.9 80 18 116/60 94 Room Air 09/25 0800 94 Room Air 09/25 0000 98.6 87 18 128/64 98 Room Air 09/24 1709 99.7 09/24 1600 100.0 127 16 138/70 94 Room Air 09/24 1600 94 Room Air 09/24 1544 101.8 09/24 1500 101.9 Intake & Output 09/25 1600 09/25 0800 09/25 0000 09/24 1600 09/24 0800 09/24 0000 Intake Total 732 745.5 750 630 600 Output Total 310 430 900 693 340 Balance 422 315.5 -150 -63 260 Intake, IV 612 625.5 630 630 600 Intake, Oral 120 120 120 Number 0 Bowel Movements Output, Urine 310 430 900 693 340 Patient 116 lb Weight Physical Exam: General Appearance Alert, no acute distress; vital signs stable Skin normal HEENT normal Neck Supple, No JVD; carotids 2+ bilaterally Cardiovascular Normal S1, Normal S2, 1/6 systolic murmur left sternal border Lungs clear to auscultation and percussion bilaterally Abdomen Soft, No Tenderness Neurological noted Extremities No Cyanosis, No Edema, Normal Pulses, No Tenderness/Swelling, left leg is shorter than the right leg, s/p hip replacement, has special shoe to wear for walking Vascular pulses 2+ and equal bilaterally Current Medications: Current Medications Sig/Deion Start time Last Medication Dose Route Stop Time Status Admin Acetaminophen 1,000 MG Q6P PRN 09/24 1545 AC 09/24 N/A 1 UNIT IV 1544 Acetaminophen 650 MG Q6P PRN 09/24 1530 DC PO Acetaminophen 325 MG Q6P PRN 09/24 1515 DC PO Ampicillin Sodium/ 1,500 MG Q6 09/24 1800 AC 09/25 Sulbactam Sodium IV 1242 Sodium Chloride 100 ML Atorvastatin Calcium 80 MG 1700 09/23 1700 AC 09/24 PO 1715 Diclofenac Sodium 1 NENA 4 TIMES/DAY PRN 09/22 2015 AC 09/22 TOP 2354 Senna 187 MG ONCE ONE 09/25 1415 DC PO 09/25 1416 Sodium Chloride 1,000 ML Q13H 09/22 1930 DC 09/24 IV 1510 Results Last 48 Hrs of Labs/Mics: Laboratory Tests 09/25/16 1255: Anion Gap 12, Estimated GFR > 60, Glucose 138 H, Calcium 9.2, Phosphorus 2.6, Magnesium 1.8, Total Bilirubin 0.6, AST 43 H, ALT 74 H, Albumin 3.5, CBC w Diff NO MAN DIFF REQ, RBC 4.94, MCV 88.4, MCH 28.8, RDW 15.2 H, MPV 7.5, Gran % 70.6, Lymphocytes % 21.0, Monocytes % 7.3, Eosinophils % 0.8, Basophils % 0.3, Absolute Granulocytes 6.8 H, Absolute Lymphocytes 2.0, Absolute Monocytes 0.7 H, Absolute Eosinophils 0.1, Absolute Basophils 0, PUBS MCHC 32.5 L 09/24/16 0425: Anion Gap 9, Estimated GFR > 60, Glucose 83, Calcium 9.4, Phosphorus 2.8, Magnesium 1.8, Total Bilirubin 0.7, AST 42 H, ALT 93 H, Troponin I < 0.01, Albumin 3.7, TSH 1.350, Free T4 1.03, CBC w Diff NO MAN DIFF REQ, RBC 5.09, MCV 88.4, MCH 28.8, RDW 15.2 H, MPV 7.6, Gran % 65.0, Lymphocytes % 23.2, Monocytes % 10.0 H, Eosinophils % 1.3, Basophils % 0.5, Absolute Granulocytes 4.8, Absolute Lymphocytes 1.7, Absolute Monocytes 0.7 H, Absolute Eosinophils 0.1, Absolute Basophils 0, PUBS MCHC 32.5 L Assessment/Plan Assessment/Plan Impression: 1. 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 The patient has not had any significant arrhythmias. She has no significant carotid disease. Further discussion with neurology about the need for further evaluation. At the moment, the patient is clearly not a candidate for anticoagulation 2. 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 3. Persistent sinus tachycardia of unclear etiology-at the present time, the etiology of the patient's new onset sinus tachycardia is unclear. The patient's family note that her heart rate has been elevated in the past. On the air sampling and monitoring there is no evidence of any other significant arrhythmias other than atrial and ventricular ectopy. There has been no documented SVT or atrial fibrillation. 4. Previous seizures, no evidence of seizures at present. 5. GERD. 6. Osteoporosis. 7. Chronic anemia. 8. Macular degeneration. Recommendations: -Continue current management. -When the patient transfers out of the ICU, I would keep the patient on telemetry to monitor for any evidence of further arrhythmias such as paroxysmal atrial fibrillation -Further discussions with neurology about the necessity of further outpatient cardiology workup. Continue telemetry? Yes
[2016-09-25 16:00] VITALS: BP 110/70
[2016-09-26 00:42] VITALS: BP 102/74
--- NOTE | 2016-09-26 08:06 | PN- Housestaff ---
DARIANA HUSAIN 09/26/16 0805: Subjective Follow-up For: CVA Tele-Events Since Last Visit: Sinus rhythm, first-degree heart block, 65-84, multiple PACs Subjective: I examined the patient. Patient doesn't have any chief complaints. Continue OT , PT, speech therapy Review of Systems Constitutional: Reports: see HPI. Objective Last 24 Hrs of Vital Signs/I&O Vital Signs Date Time Temp Pulse Resp B/P Pulse O2 O2 Flow FiO2 Ox Delivery Rate 09/26 0814 97.7 72 18 118/70 95 Room Air 09/26 0042 97.2 70 18 102/74 96 Room Air 09/25 1600 97.5 73 20 110/70 96 Room Air 09/25 1600 96 Room Air 09/25 1200 97 Room Air Intake & Output 09/26 1600 09/26 0800 09/26 0000 Intake Total 300 240 Output Total 300 Balance 0 240 Intake, IV 200 Intake, Oral 100 240 Output, Urine 300 Patient 114 lb Weight Physical Exam General Appearance: Alert, Oriented X3, Cooperative Cardiovascular: Regular Rate, Normal S1, Normal S2 Lungs: Normal Air Movement Abdomen: Normal Bowel Sounds, Soft, No Tenderness Neurological: Normal Speech Extremities: No Edema Assessment/Plan Assessment: Patient is a 89-year-old lady with PMH of TIA (in November 2015), seizures (not on any treatment), osteoporosis, vitamin B12 deficiency (receiving monthly B12 injections), anxiety, pernicious anemia, left hip replacement sx in 2013, who was brought into the ED due to acute onset difficulty speaking as well as weakness in the legs. Patient received tPA and was admitted in the ICU for close monitoring. problem list and plan: CVA Acute onset expressive aphasia with left-sided facial droop and LE weakness ( acute ischemic stroke status post tPA). head CT was negtaive for acute intracranial pathology on admission, she received tPA. physical exam showed improvement the next day (yesterday) and reportedly the patient was able to talk , tell her name and , and where she is, however repeat CT after 24h in the evening showed hemorrhage in the putamen with no mass effect. A second head CT repeat was done in the morning after the patient had become dysarthric, which has shown a slight increase in the size of the same hemorrhage. * repeat swallow eval, on puree an honey * continue Neurochecks Q2h * repeat CT head today: no cange * no aspirin is given, on hold for now * repeat LFTs shows imrpovement,Continue statin * Neurology on Board, recommended head CT in 72 hours * carotid Doppler ultrasound: Atherosclerotic disease at the carotid bifurcations bilaterally. There is no hemodynamically significant internal carotid artery stenosis by sonographic criteria. * follow PT/OT consult [place] and fever(possible aspiration PNA), #Resolved [place] etiology EKG NSR, unremarkable except for tachycardia has had max Temp of 101.9, 09/24/2016, CXR unremarkable, sent UA UC and BC Currently Afebrile * IV acetaminophen for fever * follow up pancultures * Continue unasyn for now may consider following off ABX * cardilogy on board will follow recs * follwo up echo: ef 65% * will follow cardiology notes Hypokalemia * Replete K and check tomorrow DVT px with Alps Diet - honey think and puree FULL CODE Problem List: 1. CVA (cerebral vascular accident) 2. Brain bleed Pain Ratin Pain Location: no pain Pain Goal: Pain 4 or less Tomorrow's Labs & Rationales: bep for low k ROSS EARL MD 09/26/16 1907: Assessment/Plan Pain Plan: Has no pain. <4 Attending MD Review Statement Attending Statement Attending MD Statement: examined this patient, discuss w/resident/PA/DIRECTOR OF LITIGATION, agreed w/resident/PA/DIRECTOR OF LITIGATION, reviewed EMR data (avail), reviewed images, amended to note Attending Assessment/Plan: The patient was seen and discussed with house staff. Appreciate cardiology and pulmonary follow-up. CT done shows some improvement. Clinically improved. Continue care as outlined above.
--- NOTE | 2016-09-26 08:13 | CT SCAN REPORT ---
EXAMINATION: CT HEAD WITHOUT CONTRAST CLINICAL INFORMATION: Follow-up left intracranial bleed. COMPARISON: CT brain 09/24/[address] brain 09/23/2016. TECHNIQUE: Contiguous axial imaging was performed from the skull base to vertex without intravenous administration of contrast. DLP: 529mGy-cm FINDINGS: Again visualized is a dense bleed in the left lentiform nucleus predominantly in the putamen. There is minimal surrounding edema. The size of the bleed shows minimal improvement. There are no additional areas of intra-axial, extra-axial bleed, masses or midline shift. There is extensive periventricular white matter hypodensity suggestive of chronic small vessel ischemic changes. The lateral ventricles are enlarged and so are the cortical sulci. There is ectasia of the entire basilar artery with a moderate fusiform dilation of distal basilar artery. Mild atherosclerotic changes of supraclinoid ICA is also visualized. These findings were noted on the recent CTA brain 09/22/2016. Bone windows reveal no calvarial abnormality. The paranasal sinuses are well-aerated and clear. IMPRESSION: Slight improvement in left lentiform bleed predominantly in the putamen compared to 09/23/2016 and 09/24/2016 exams. There is age-related cerebral atrophy and chronic small vessel ischemic changes in both cerebral hemispheres. There previous 2 CT bleed reports were called to the physician by phone.
[2016-09-26 08:14] VITALS: BP 118/70
--- NOTE | 2016-09-26 09:40 | NUR ---
PT STATED THAT SHE HAD A BOWEL MOVEMENT ON Tuesday09/24/16.
--- NOTE | 2016-09-26 10:04 | PN- Pulmonary ---
Subjective HPI/Critical Care Issues: Patient is comfortable on room air without complaints Objective Current Medications: Current Medications Sig/Deion Start time Last Medication Dose Route Stop Time Status Admin Acetaminophen 1,000 MG Q6P PRN 09/24 1545 AC 09/24 N/A 1 UNIT IV 1544 Ampicillin Sodium/ 1,500 MG Q6 09/24 1800 AC 09/26 Sulbactam Sodium IV 0520 Sodium Chloride 100 ML Atorvastatin Calcium 80 MG 1700 09/23 1700 AC 09/25 PO 1700 Diclofenac Sodium 1 NENA 4 TIMES/DAY PRN 09/22 2015 AC 09/22 TOP 2354 Potassium Chloride 40 MEQ ONCE ONE 09/26 0930 DC PO 09/26 0931 Potassium Chloride 20 MEQ ONCE ONE 09/25 2100 DC 09/25 PO 09/25 2101 2034 Potassium Chloride 20 MEQ ONCE ONE 09/25 1630 DC 09/25 PO 09/25 1631 1659 Senna 187 MG ONCE ONE 09/25 1415 DC 09/25 PO 09/25 1416 1700 Vital Signs & I&O Last 24 Hrs of Vitals and I&O: Vital Signs Date Time Temp Pulse Resp B/P Pulse O2 O2 Flow FiO2 Ox Delivery Rate 09/26 0959 Room Air Room Air 09/26 0814 97.7 72 18 118/70 95 Room Air 09/26 0042 97.2 70 18 102/74 96 Room Air 09/25 1600 97.5 73 20 110/70 96 Room Air 09/25 1600 96 Room Air 09/25 1200 97 Room Air Intake & Output 09/26 1600 09/26 0800 09/26 0000 Intake Total 300 240 Output Total 300 Balance 0 240 Intake, IV 200 Intake, Oral 100 240 Output, Urine 300 Patient 114 lb Weight Room air oxygen saturation 95% exam for chest shows somewhat diminished breath sounds are no focal wheezes cardiac exam shows regular S1 and S2 without murmurs Impression/Plan Impression/Plan Impression/Plan: 89-year-old woman status post stroke appears improved with improved aphasia Recommendations: Continue current level of care. Follow-up neurology and consider transfer to the floor with their approval. Complete course of antibiotics.
[2016-09-26 10:50] LABS: ABSOLUTE BASOPHIL COUNT 0 /CUMM (0.0-0.2); ABSOLUTE EOSINOPHIL COUNT 0.1 /CUMM (0.0-0.7); ABSOLUTE GRANULOCYTE CT 5.3 /CUMM (1.4-6.5); ABSOLUTE LYMPH COUNT 1.6 /CUMM (1.2-3.4); ABSOLUTE MONOCYTE COUNT 0.6 /CUMM (0.10-0.60); BASOPHIL % 0.3 % (0.0-2.0); EOSINOPHIL % 1.9 % (0-5); GRANULOCYTE % 68.7 % (42.2-75.2); MEAN CORPUSCULAR HGB 28.7 PG (27.0-31.0); MEAN CORPUSCULAR HGB CONC 32.4 G/DL (33.0-37.0); MEAN CORPUSCULAR VOLUME 88.5 FL (81.0-99.0); MEAN PLATELET VOLUME 7.9 FL (7.4-10.4); PLATELET COUNT 262 /CUMM (130-400); RBC DISTRIBUTION WIDTH 15.6 % (11.5-14.5); RED BLOOD CELL CT 4.97 /CUMM (4.20-5.40); WHITE BLOOD CELL COUNT 7.7 /CUMM (4.8-10.8)
--- NOTE | 2016-09-26 13:50 | NUR ---
PT IS NOW TRYING TO GET UP OUT OF BED WITHOUT ASSISTANCE. BED/CHAIR ALARM PLACED UNDER PT; RED SOCKS ON; FALL RISK BRACELET ON. WILL CONTINUE TO MONITOR.
[2016-09-26 18:10] VITALS: BP 112/62
--- NOTE | 2016-09-26 19:04 | PN- Cardiology ---
Subjective Subjective: No obvious clinical change today. She remains alert without obvious issues. No significant arrhythmias noted. Objective Vital Signs and I&Os Vital Signs Date Time Temp Pulse Resp B/P Pulse O2 O2 Flow FiO2 Ox Delivery Rate 09/26 1810 98.6 90 16 112/62 94 09/26 0959 Room Air Room Air 09/26 0814 97.7 72 18 118/70 95 Room Air 09/26 0042 97.2 70 18 102/74 96 Room Air Intake & Output 09/26 1600 09/26 0800 09/26 0000 09/25 1600 09/25 0800 09/25 0000 Intake Total 220 300 240 490 732 745.5 Output Total 350 300 150 310 430 Balance -130 0 240 340 422 315.5 Intake, IV 100 200 250 612 625.5 Intake, Oral 120 100 240 240 120 120 Output, Urine 350 300 150 310 430 Patient 114 lb 116 lb Weight Physical Exam: General Appearance Alert, no acute distress; vital signs stable Skin normal HEENT normal Neck Supple, No JVD; carotids 2+ bilaterally Cardiovascular Normal S1, Normal S2, 1/6 systolic murmur left sternal border Lungs clear to auscultation and percussion bilaterally Abdomen Soft, No Tenderness Neurological noted Extremities No Cyanosis, No Edema, Normal Pulses, No Tenderness/Swelling, left leg is shorter than the right leg, s/p hip replacement, has special shoe to wear for walking Vascular pulses 2+ and equal bilaterally Current Medications: Current Medications Sig/Deion Start time Last Medication Dose Route Stop Time Status Admin Acetaminophen 1,000 MG Q6P PRN 09/24 1545 AC 09/24 N/A 1 UNIT IV 1544 Ampicillin Sodium/ 1,500 MG Q6 09/24 1800 AC 09/26 Sulbactam Sodium IV 1748 Sodium Chloride 100 ML Atorvastatin Calcium 80 MG 1700 09/23 1700 AC 09/26 PO 1748 Diclofenac Sodium 1 NENA 4 TIMES/DAY PRN 09/22 2015 AC 09/22 TOP 2354 Potassium Chloride 40 MEQ ONCE ONE 09/26 0930 DC 09/26 PO 09/26 0931 1033 Potassium Chloride 20 MEQ ONCE ONE 09/25 2100 DC 09/25 PO 09/25 2101 203 Results Last 48 Hrs of Labs/Mics: Laboratory Tests 09/26/16 0944: Anion Gap 12, Estimated GFR > 60, Glucose 81, Calcium 9.1, Phosphorus 2.8, Magnesium 1.9, Total Bilirubin 0.4, AST 32, ALT 59 H, Albumin 3.2 L, CBC w Diff NO MAN DIFF REQ, RBC 4.97, MCV 88.5, MCH 28.7, RDW 15.6 H, MPV 7.9, Gran % 68.7, Lymphocytes % 20.7, Monocytes % 8.4, Eosinophils % 1.9, Basophils % 0.3, Absolute Granulocytes 5.3, Absolute Lymphocytes 1.6, Absolute Monocytes 0.6, Absolute Eosinophils 0.1, Absolute Basophils 0, PUBS MCHC 32.4 L 09/25/16 1255: Anion Gap 12, Estimated GFR > 60, Glucose 138 H, Calcium 9.2, Phosphorus 2.6, Magnesium 1.8, Total Bilirubin 0.6, AST 43 H, ALT 74 H, Albumin 3.5, CBC w Diff NO MAN DIFF REQ, RBC 4.94, MCV 88.4, MCH 28.8, RDW 15.2 H, MPV 7.5, Gran % 70.6, Lymphocytes % 21.0, Monocytes % 7.3, Eosinophils % 0.8, Basophils % 0.3, Absolute Granulocytes 6.8 H, Absolute Lymphocytes 2.0, Absolute Monocytes 0.7 H, Absolute Eosinophils 0.1, Absolute Basophils 0, PUBS MCHC 32.5 L Assessment/Plan Assessment/Plan Impression: 1. 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 The patient has not had any significant arrhythmias. She has no significant carotid disease. Further discussion with neurology about the need for further evaluation. At the moment, the patient is clearly not a candidate for anticoagulation 2. 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 3. Persistent sinus tachycardia of unclear etiology-at the present time, the etiology of the patient's new onset sinus tachycardia is unclear. The patient's family note that her heart rate has been elevated in the past. On the pvc monitor there is no evidence of any other significant arrhythmias other than atrial and ventricular ectopy. There has been no documented SVT or atrial fibrillation. 4. Previous seizures, no evidence of seizures at present. 5. GERD. 6. Osteoporosis. 7. Chronic anemia. 8. Macular degeneration. Recommendations: -Continue current management. - I would keep the patient on telemetry to monitor for any evidence of further arrhythmias such as paroxysmal atrial fibrillation -Further discussions with neurology about the necessity of further outpatient cardiology workup. Continue telemetry? Yes
[2016-09-27 00:09] VITALS: BP 140/80
--- NOTE | 2016-09-27 07:24 | PN- Housestaff ---
Subjective Follow-up For: Ischemic CVA s/p TPA with hemorrhagic transformation Possible aspiration pneumonia Tele-Events Since Last Visit: Sinus rhythm HR 65-76 First degree heart block PACs No events Subjective: No acute events overnight. Patient seen and examined this morning. She is sitting comfortably in chair and does not have any complaints. She feels that her aphasia is significantly improved. Review of Systems Constitutional: Reports: see HPI. Objective Last 24 Hrs of Vital Signs/I&O Vital Signs Date Time Temp Pulse Resp B/P Pulse O2 O2 Flow FiO2 Ox Delivery Rate 09/27 1530 97.5 66 20 118/60 95 Room Air 09/27 1153 Room Air Room Air 09/27 1139 Room Air Room Air 09/27 0838 98.0 80 18 108/64 95 Room Air 09/27 0800 Room Air 09/27 0009 98.8 80 20 140/80 95 Room Air Intake & Output 09/27 1600 09/27 0800 09/27 0000 Intake Total 240 250 340 Output Total 240 550 Balance 0 250 -210 Intake, IV 120 200 100 Intake, Oral 120 50 240 Number 1 Bowel Movements Output, Urine 240 550 Physical Exam General Appearance: Alert, Oriented X3, No Acute Distress HEENT: Atraumatic, Mucous Membr. moist/pink Neck: Supple Cardiovascular: Regular Rate, Normal S1, Normal S2, No Murmurs, Gallops, Rubs Lungs: Clear to Auscultation Abdomen: Soft, No Tenderness, Positive Bowel Sounds Extremities: No Clubbing, No Cyanosis, No Edema Current Medications: Current Medications Sig/Deion Start time Last Medication Dose Route Stop Time Status Admin Acetaminophen 1,000 MG Q6P PRN 09/24 1545 09/24 N/A 1 UNIT IV 1544 Ampicillin Sodium/ 1,500 MG Q6 09/24 1800 09/27 Sulbactam Sodium IV 1701 Sodium Chloride 100 ML Atorvastatin Calcium 80 MG 1700 09/23 1700 09/27 PO 1701 Diclofenac Sodium 1 NENA 4 TIMES/DAY PRN 09/22 2014 09/22 [facility] 2354 Last 24 Hrs of Lab/West Results Last 24 Hrs of Labs/Mics: Laboratory Tests 09/27/16 0705: Anion Gap 7, Estimated GFR > 60, BUN/Creatinine Ratio 20.0, Total Bilirubin 0.6, Direct Bilirubin 0.3, AST 39 H, ALT 65 H, Alkaline Phosphatase 147 H, Total Protein 6.0 L, Albumin 3.2 L Orders Radiology Findings: CT HEAD W/O IV CONTRAST: Slight improvement in left lentiform bleed predominantly in the putamen compared to 09/23/2016 and 09/24/2016 exams. There is age-related cerebral atrophy and chronic small vessel ischemic changes in both cerebral hemispheres. Assessment/Plan Assessment: 89 y/o F with PMHx of recurrent TIAs and seizures who is admitted for ischemic CVA s/p tPA with hemorrhagic transformation. #Ischemic CVA: Etiology of stroke is unclear. Patient has not had any significant arrhythmias other than atrial and ventricular ectopy on telemetry. S /p tPA with hemorrhagic transformation. Aphasia much improved but patient continues to have persistent dysphagia. CT Head today with slight improvement in left lentiform bleed. * Cardiology, neurology and pulmonology following. Appreciate their recs. * Continue telemetry to monitor for paroxysmal atrial fibrillation as a potential etiology. * S/p repeat swallow eval. Diet advanced to mechanical soft/ground and nectar thick liquids. * Repeat CT Head tomorrow to assess stability of the hemorrhage. * Discharge to STR if CT scan is stable. * Patient is not a candidate for anticoagulation. #Possible aspiration pneumonia: Remains afebrile and without leukocytosis on day IV of Unasyn. * Continue Unasyn 1.5 g IV Q6H for one more day. Diet: Heart Healthy - Mechanical Soft/Ground and [place] Thick Liquids DVT PPx: ALPs CODE: DNR/DNI Problem List: 1. Ischemic stroke 2. Hemorrhage in the brain 3. Aphasia S/P CVA 4. Dysphagia S/P CVA (cerebrovascular accident) Pain Ratin Pain Location: N/A Pain Goal: Remain pain free Pain Plan: Voltaren gel Tomorrow's Labs & Rationales: None Discharge Plan Discharge Disposition: STR/NH Stable for Discharge? Yes Anticipated Discharge (Day): tomorrow
[2016-09-27 08:38] VITALS: BP 108/64
--- NOTE | 2016-09-27 10:48 | PN- Cardiology ---
Subjective Subjective: The patient is sitting comfortably in a chair. No current cardiac complaints. No chest pain. No shortness of breath. No diaphoresis. No palpitations. No lightheadedness or dizziness. Objective Vital Signs and I&Os Vital Signs Date Time Temp Pulse Resp B/P Pulse O2 O2 Flow FiO2 Ox Delivery Rate 09/27 0838 98.0 80 18 108/64 95 Room Air 09/27 0800 Room Air 09/27 0009 98.8 80 20 140/80 95 Room Air 09/26 1810 98.6 90 16 112/62 94 Intake & Output 09/27 1600 09/27 0800 09/27 0000 09/26 1600 09/26 0800 09/26 0000 Intake Total 250 340 220 300 240 Output Total 550 350 300 Balance 250 -210 -130 0 240 Intake, IV 200 100 100 200 Intake, Oral 50 240 120 100 240 Number 1 Bowel Movements Output, Urine 550 350 300 Patient 114 lb Weight Physical Exam: Gen: NAD HEENT: normal Lungs: clear to auscultation, normal resp. effort Heart: RRR, S1, S2, no murmurs Abdomen: Soft, nontender, no masses Extremities: No clubbing, cyanosis, or edema. Neuro: Alert and oriented x 3, cranial nerves intact Current Medications: Current Medications Sig/Deion Start time Last Medication Dose Route Stop Time Status Admin Acetaminophen 1,000 MG Q6P PRN 09/24 1545 AC 09/24 N/A 1 UNIT IV 1544 Ampicillin Sodium/ 1,500 MG Q6 09/24 1800 AC 09/27 Sulbactam Sodium IV 0509 Sodium Chloride 100 ML Atorvastatin Calcium 80 MG 1700 09/23 1700 09/26 PO 1748 Diclofenac Sodium 1 NENA 4 TIMES/DAY PRN 09/22 2014 09/22 TOP 2354 Results Last 48 Hrs of Labs/Mics: Laboratory Tests 09/27/16 0705: Anion Gap 7, Estimated GFR > 60, BUN/Creatinine Ratio 20.0, Total Bilirubin 0.6, Direct Bilirubin 0.3, AST 39 H, ALT 65 H, Alkaline Phosphatase 147 H, Total Protein 6.0 L, Albumin 3.2 L 09/26/16 0944: Anion Gap 12, Estimated GFR > 60, Glucose 81, Calcium 9.1, Phosphorus 2.8, Magnesium 1.9, Total Bilirubin 0.4, AST 32, ALT 59 H, Albumin 3.2 L, CBC w Diff NO MAN DIFF REQ, RBC 4.97, MCV 88.5, MCH 28.7, RDW 15.6 H, MPV 7.9, Gran % 68.7, Lymphocytes % 20.7, Monocytes % 8.4, Eosinophils % 1.9, Basophils % 0.3, Absolute Granulocytes 5.3, Absolute Lymphocytes 1.6, Absolute Monocytes 0.6, Absolute Eosinophils 0.1, Absolute Basophils 0, PUBS MCHC 32.4 L 09/25/16 1255: Anion Gap 12, Estimated GFR > 60, Glucose 138 H, Calcium 9.2, Phosphorus 2.6, Magnesium 1.8, Total Bilirubin 0.6, AST 43 H, ALT 74 H, Albumin 3.5, CBC w Diff NO MAN DIFF REQ, RBC 4.94, MCV 88.4, MCH 28.8, RDW 15.2 H, MPV 7.5, Gran % 70.6, Lymphocytes % 21.0, Monocytes % 7.3, Eosinophils % 0.8, Basophils % 0.3, Absolute Granulocytes 6.8 H, Absolute Lymphocytes 2.0, Absolute Monocytes 0.7 H, Absolute Eosinophils 0.1, Absolute Basophils 0, PUBS MCHC 32.5 L Recent Imaging Studies: Echocardiogram: 1. This was a very limited and extremely difficult examination. 2. Aortic sclerosis is present with aortic insufficiency that appears to be mild in severity. 3. Mitral leaflet thickening is present but the valve was not optimally assessed. 4. A small pericardial effusion is present. 5. The left ventricular chamber size and systolic function appear normal. 6. The right heart structures were not optimally visualized. The RV systolic pressure could not be assessed on this examination. 7. A followup examination is suggested when the patient;s heart rate is better controlled. 8. There were no embolic sources identified on this examination, however, if clinically indicated, a DONNA would better exclude potential embolic sources. Assessment/Plan Assessment/Plan Impression: 1. 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 The patient has not had any significant arrhythmias. She has no significant carotid disease. Further discussion with neurology about the need for further evaluation. At the moment, the patient is clearly not a candidate for anticoagulation 2. 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 3. Persistent sinus tachycardia of unclear etiology-at the present time, the etiology of the patient's new onset sinus tachycardia is unclear. The patient's family note that her heart rate has been elevated in the past. On the security assurance analyst there is no evidence of any other significant arrhythmias other than atrial and ventricular ectopy. There has been no documented SVT or atrial fibrillation. 4. Previous seizures, no evidence of seizures at present. 5. GERD. 6. Osteoporosis. 7. Chronic anemia. 8. Macular degeneration. Plan: * Agree with current management. * If possible, keep on telemetry to monitor for paroxysmal atrial fibrillation as a possible cause of the CVA Continue telemetry? Yes
[2016-09-27] MEDS ORDERED: ATORVASTATIN CA80 M1 PO (11:34)
--- NOTE | 2016-09-27 11:37 | Discharge Summary ---
Visit Information Visit Dates Admission Date: 09/22/16 Discharge Date: 09/28/2016 Hospital Course Course Attending Physician: LES VÁZQUEZ MD Primary Care Physician: DIETER LIRIANO,DENNY Hospital Course: Patient is a 89-year-old woman with a past medical history significant for seizures(not on any medications as per neurology), episode of TIA last year in November 2015, history of osteoporosis, macular degeneration, vitamin B12 deficiency , dementia/cognitive impairment, left hip replacement, GERD presented to the ED for the evaluation of acute onset slurring of speech/severe aphasia with weakness. Stat CAT scan in the ED did not reveal any acute ischemic/hemorrhagic infarction , but due to her severe aphasia with left-sided facial droop, after talking to Dr. Quintero, it was decided to administer TPA as she was still in the window. She had TIA in 2015 and off she was started on full-strength aspirin. The daughter also mentioned that she has been worked up for her deranged LFTs, most likely due to her alcohol intake. She rarely drinks white wine at lunch and dinner. Never smoked vitals on admission: admission pulse 93, temperature 96, his rates rate 16, blood pressure 136/80 on room air. Gen. appearance: Slightly anxious, expressive aphasia Skin: Grossly normal HEENT: PEERLA Neck: Supple, No JVD Cardiovascular: S1 plus and stool without any murmurs Lungs: Clear to Auscultation, Normal Air Movement Abdomen: Normal Bowel Sounds, Soft, No Tenderness Neurological: Expressive aphasia, motor strength Strength at 5/5 in the upper extremities , motor strength 4 x 5 in the left lower extremity, motor strength 5 x 5 in the right lower extremity Cranial Nerves 3-12 NL, Reflexes 2+. Negative cerebellar signs Extremities: No Clubbing, No Cyanosis, No Edema Vascular: Normal Pulses. Pertinent labs on admission: Normal WBC count H&H stable 14.4/87.7, BP normal, deranged LFTs AST 102, ALT 152 , ALP 224. CT head without contrast showed: No acute intracranial pathology. CTA head and neck: Relatively normal CT angiogram of the neck. 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 No vessel occlusions or significant stenoses intracranially. 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 Focal 4 mm rounded focus of contrast opacification on venous phase of imaging in the left retrolenticular capsule which is indeterminate and may be due to a small cavernoma and/or venous angioma. EKG done in the ED showed normal sinus rhythm with first-degree heart block left axis deviation. Assessment and plan: 1. acute ischemic stroke status post TPA, converted to hemorrhagic stroke After TPA ejection patient neurological symptoms improved and she was admitted to ICU and developed 2.2 cm AP by 1.5 cm TV intraparenchymal hemorrhage within the posterior left putamen,however her vital signs were stable and there was no new neurological deficit.echo cardiogram and carotid doppler did not show any acute pathology. Swallowing evaluation recommended chopped and nectar diet. Patient was evaluated by OT/PT/speech therapy and gradually improved. Multiple head CT scans did not show any increase of the hemorrhagic area(last one 2016). Patient was off aspirin and Plavix.we put the patient on high-dose a statin.patient LFTs were mildly elevated during the hospitalization which was present on admission, possibly because patient alcohol intake history. Patient should follow-up with his PCP and recheck her LFTs periodically because she is on a statin.patient was medically stable to be discharged to [facility]. Per neurology, patient should stop taking aspirin on discharge. She should follow up with neurology within 2 weeks of discharge so that decision to resume aspirin and start Plavix can be done at that time based on repeat imaging of the head. 2. possible aspiration PNA The second of admission patient developed fever of 101.9, however chest x-ray was negative for pneumonia and there were no WBCs. He put the patient on IV Unasyn+augmentin for 5 days which was stopped upon discharge. 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 Focal 4 mm rounded focus of contrast opacification on venous phase of imaging in the left retrolenticular capsule which is indeterminate and may be due to a small cavernoma and/or venous angioma." this should be followed by PCP. Allergies: Coded Allergies: No Known Allergies (09/22/16) Pertinent Lab Results: PATIENT: NEVILLE GERMAN PRESENT AGE: 89 PATIENT ACCOUNT NO: [id number] : 12/[birth year] LOCATION: 1NO ORDERING PHYSICIAN: MYRTLE CANTU MD SERVICE DATE: 09/28/16 EXAM TYPE: CAT - CT HEAD WO IV CONTRAST EXAMINATION: CT HEAD WITHOUT CONTRAST CLINICAL INFORMATION: Evaluate for change of parenchymal hemorrhage. COMPARISON: Head CT from 09/26/2016. TECHNIQUE: Contiguous axial imaging was performed from the skull base to vertex without intravenous administration of contrast. DLP: 529.16 mGy-cm FINDINGS: A parenchymal hemorrhage in the medial left temporal lobe and retrolenticular capsule is without significant change, demonstrating a mild amount of surrounding edema. There is no evidence of acute territorial infarction. No new mass effect or midline shift is seen. Champion to white matter differentiation is well preserved. No extra-axial fluid collections are identified. There is no hydrocephalus. Extensive chronic white matter changes and parenchymal volume loss are again visible. Chronic lacunar infarcts again noted in the brainstem and the champion matter structures. The osseous structures and soft tissues are normal. The mastoid air cells and visualized portions of the paranasal sinuses are well aerated. Dolichoectasia of the vertebrobasilar vasculature again noted. IMPRESSION: Stable parenchymal hemorrhage in the medial left temporal lobe and retrolenticular capsule distorting the dorsal basal ganglia. Extensive chronic white matter microangiopathy and parenchymal volume loss with scattered chronic lacunar infarcts. DICTATED BY: DELFINA ROGERS MD DATE/TIME DICTATED:09/28/161007 TRAVEL NURSE:KENROY DATE/TIME TRANSCRIBED:09/28/161007 CONFIDENTIAL, DO NOT COPY WITHOUT APPROPRIATE AUTHORIZATION. <Electronically signed in Other Vendor System> SIGNED BY: DELFINA ROGERS MD [id number] PATIENT: NEVILLE GERMAN PRESENT AGE: 89 PATIENT ACCOUNT NO: [id number] : 12/26/27 LOCATION: [facility] ORDERING PHYSICIAN: CHAD PERALTA MD SERVICE DATE: 09/24/16 EXAM TYPE: CARD - ECHOCARDIOGRAM NEVILLE GERMAN Age: 89 : 1925 Gender: F Exam Date: 09/24/2016 10:48 Exam Location: [facility] Ht (in): 62 Wt (lb): 116 BSA: 1.52 BP: 132 / 84 Ordering Physician: CHAD PERALTA MD Referring Physician: CHAD PERALTA MD Technologist: Adriana Bronson Room Number: 112 Indications: CARDIOMYOPATHY Rhythm: Sinus Technical Quality: Poor, Very technically difficult study FINDINGS Left Ventricle Normal size left ventricle. No obvious regional wall motion abnormalities. Normal left ventricular ejection fraction estimated at 60-65%. Right Ventricle Right ventricle not well visualized. Right Atrium Right atrium not well visualized. Left Atrium Left atrial size at the upper limits of normal. Mitral Valve Mitral valve thickened. Aortic Valve Diffuse thickening (sclerosis) of the aortic valve cusps without reduced excursion. Mild aortic regurgitation. Tricuspid Valve Tricuspid valve not well visualized. Pulmonic Valve Pulmonic valve not well visualized. Pericardium Small pericardial effusion. Great Vessels Aortic root and proximal ascending aorta not well visualized. CONCLUSIONS 1. This was a very limited and extremely difficult examination. 2. Aortic sclerosis is present with aortic insufficiency that appears to be mild in severity. 3. Mitral leaflet thickening is present but the valve was not optimally assessed. 4. A small pericardial effusion is present. 5. The left ventricular chamber size and systolic function appear normal. 6. The right heart structures were not optimally visualized. The RV systolic pressure could not be assessed on this examination. 7. A followup examination is suggested when the patient;s heart rate is better controlled. 8. There were no embolic sources identified on this examination, however, if clinically indicated, a DONNA would better exclude potential embolic sources. Ai Fine M.D. (Electronically Signed) Final Date: 24 September 2016 18:48 MEASUREMENTS (Male / Female) Normal Values 2D ECHO LV Diastolic Diameter PLAX 2.9 cm 4.2 - 5.9 / 3.9 - 5.3 cm LV Systolic Diameter PLAX 1.4 cm 2.1 - 4.0 cm LV Fractional Shortening PLAX 51.7 % 25 - 46 % LV Ejection Fraction 2D Teich 84.3 % IVS Diastolic Thickness 1.3 cm LVPW Diastolic Thickness 1.3 cm LV Relative Wall Thickness 0.9 LVOT Diameter 1.9 cm Aortic Root Diameter 3.5 cm LA Systolic Diameter LX 1.8 cm 3.0 - 4.0 / 2.7 - 3.8 cm DOPPLER AV Peak Velocity 116.0 cm/s AV Peak Gradient 5.4 mmHg AV Mean Velocity 75.7 cm/s AV Mean Gradient 3.0 mmHg AV Velocity Time Integral 17.0 cm LVOT Peak Velocity 74.4 cm/s LVOT Peak Gradient 2.2 mmHg LVOT Mean Velocity 46.5 cm/s LVOT Mean Gradient 1.0 mmHg LVOT Velocity Time Integral 9.3 cm LVOT Stroke Volume 26.4 cm AV Area Cont Eq vti 1.6 cm AV Area Cont Eq pk 1.8 cm MV Peak Velocity 243.0 cm/s MV Peak Gradient 23.6 mmHg MV Mean Velocity 133.0 cm/s MV Mean Gradient 9.0 mmHg Mitral E Point Velocity 123.0 cm/s Mitral A Point Velocity 57.8 cm/s Mitral E to A Ratio 2.1 MV PHT Velocity 262.0 cm/s MV Deceleration Bland 2056.0 cm/s MV Pressure Half Time 38.2 ms MV Area PHT 5.8 cm MV Deceleration Time 123.0 ms DICTATED BY: Moe FINE MD DATE/TIME DICTATED:09/24/161847 TRAVEL NURSE:KENROY DATE/TIME TRANSCRIBED:09/24/161847 CONFIDENTIAL, DO NOT COPY WITHOUT APPROPRIATE AUTHORIZATION. <Electronically signed in Other Vendor System> SIGNED BY: Moe FINE MD 09/24/161847 PATIENT: NEVILLE GERMAN PRESENT AGE: 89 PATIENT ACCOUNT NO: [id number] : [birth year] LOCATION: [facility] ORDERING PHYSICIAN: ANTON WHATLEY MD SERVICE DATE: 09/23/16 EXAM TYPE: US - [id number] DOPPLER EXAMINATION: US DUPLEX CAROTID AND VERTEBRAL CLINICAL INFORMATION: Acute ischemic stroke/aphasia. COMPARISON: None available. TECHNIQUE: Real-time ultrasound and Doppler techniques (integrating B-mode 2D vascular images, Doppler spectral analysis and color flow Doppler imaging) were utilized to interrogate the extracranial carotid and vertebral arteries bilaterally. The degree of stenosis determined by criteria similar to NASCET. FINDINGS: Right common carotid artery peak systolic velocity ranges between 56 and 83 cm/s with maximal end-diastolic velocity of 14 cm/s. Right internal carotid artery peak systolic velocity measures up to 66 cm/s with maximal end-diastolic velocity of 16 cm/s. Right external carotid artery peak velocity is 107 cm/s. There is antegrade flow within the right vertebral artery. Extensive calcified atherosclerotic plaque at the right carotid bifurcation. Left common carotid artery peak systolic velocity ranges between 70 and 90 cm/s with maximal end-diastolic velocity of 18 cm/s. Left internal carotid artery peak systolic velocities range between 75 and 81 cm/s with maximal end-diastolic velocity of 23 cm/s. There is antegrade flow within the left vertebral artery. Left external carotid artery peak systolic velocity is 89 cm/s. There is calcified and soft lipid rich atherosclerotic plaque at the left carotid bifurcation. 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 There is no hemodynamically significant internal carotid artery stenosis by sonographic criteria. DICTATED BY: QAMAR SHOOK MD DATE/TIME DICTATED:09/23/161353 TRAVEL NURSE:KENROY DATE/TIME TRANSCRIBED:09/23/161353 CONFIDENTIAL, DO NOT COPY WITHOUT APPROPRIATE AUTHORIZATION. <Electronically signed in Other Vendor System> SIGNED BY: QAMAR SHOOK MD 09/23/[address] angiogram of the neck. 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 No vessel occlusions or significant stenoses intracranially. 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 Focal 4 mm rounded focus of contrast opacification on venous phase of imaging in the left retrolenticular capsule which is indeterminate and may be due to a small cavernoma and/or venous angioma. Severe chronic white matter microangiopathy and parenchymal volume loss. No acute territorial infarction. Scattered chronic lacunar infarcts in the deep champion matter structures. Disposition Summary Disposition Principal Diagnosis: Stroke with hemorrhagic conversion Additional Diagnosis: GERD. Osteoporosis. Chronic anemia. Macular degeneration. Discharge Disposition: SNF Discharge Instructions General Discharge Information Code Status: Do Not Resucitate/Intubat Patient's Diet: Heart healthy Patient's Activity: As tolerated Follow-Up Instructions/Appts: -Please follow-up with your primary care provider within 7 days after discharge and discuss the head and neck CTA results. -Please follow-up with your furniture upholsterer apprentice for possible outpatient workup to rule out any arrhythmias -Please follow-up with your neurologist 7 days after discharge for evaluation for restarting aspirin. -We have made changes to your home medications, please read the instructions carefully. -Please come back to the hospital if your symptoms got worse. Medications at Discharge Discharge Medications: Stop taking the following medications: Aspirin (Aspirin*) 325 MG TABLET ORAL DAILY Continue taking these medications: Montelukast Sodium (Montelukast Sodium) 10 MG TABLET 1 Tablet ORAL DAILY Qty = 30 Comments: NOT GIVEN IN HOSPITAL Cyanocobalamin (Vitamin B-12) (Vitamin B12) 2,500 MCG TAB.CHEW 1 Tablet ORAL Q MONTH Comments: NOT GIVEN IN HOSPITAL Start taking the following new medications: Atorvastatin Calcium (Atorvastatin Calcium) 80 MG TABLET 80 Milligram ORAL 5 PM Days = 28 No Refills Comments: Last Taken: 09/27/16 Time: 5PM Copies To: ARIA LIRIANO,CONSTANCE GARCIAS MD,DENNY Attending MD Review Statement Documenting Attending: GURPREET LIRIANO,LES Canales Other Findings: pt being discharged to [facility]. agree with the above discharge plan. Neuro follow up in 2 weeks to assess for restarting antiplatelet therapy.
--- NOTE | 2016-09-27 11:38 | Patient Discharge Instructions ---
Discharge Instructions General Discharge Information You were seen/treated for: CVA post TPA with hemorrhagic conversion Special Instructions: -Please follow-up with your primary care provider within 7 days after discharge. -Please follow-up with your sports director for possible outpatient workup to rule out any arrhythmias -Please stop taking aspirin. Follow-up with your neurologist Dr. Santana Quintero within 2 weeks of discharge who may suggest changes to your medications at that time. -We have made changes to your home medications, please read the instructions carefully. -Please come back to the hospital if your symptoms got worse. Diet Recommended Diet: Heart Healthy Activity Full Activity/No Limits: Yes (as tolerated) Acute Coronary Syndrome Inclusion Criteria At DC or during hospital stay patient has or had the following: ACS DIAGNOSIS No Discharge Core Measures Meds if any: Prescribed or Continued at Discharge Meds if any: NOT Prescribed or Continued at Discharge Congestive Heart Failure Inclusion Criteria At DC or during hospital stay patient has or had the following: CHF DIAGNOSIS No Discharge Core Measures Meds if any: Prescribed or Continued at Discharge Meds if any: NOT Prescribed or Continued at Discharge Cerebrovascular accident Inclusion Criteria At DC or during hospital stay patient has or had the following: CVA/TIA Diagnosis Yes Discharge Core Measures Meds if any: Prescribed or Continued at Discharge Antithrombotic No Statin (required if LDL =>70) Yes Anticoagulant No Meds if any: NOT Prescribed or Continued at Discharge No Antithrombotic d/t Medical Contraindication No Anticoagulant d/t Medical Contraindication Venous thromboembolism Inclusion Criteria VTE Diagnosis No VTE Type NONE VTE Confirmed by (Test) NONE Discharge Core Measures - Per Current guidelines, there needs to be overlap - treatment for the first 5 days of Warfarin therapy. - If discharged on Warfarin prior to 5 days of - overlap therapy, the patient will need to be - assessed for post discharge needs including - *Post discharge parental anticoagulation - *Warfarin and/or parental anticoagulation education - *Follow up date to check INR post discharge At least 5 days overlap therapy as Inpatient No Meds if any: Prescribed or Continued at Discharge Note: Overlap Therapy is Warfarin and Anticoagulant Meds if any: NOT Prescribed or Continued at Discharge
[2016-09-27 15:30] VITALS: BP 118/60
--- NOTE | 2016-09-27 15:45 | PN- Att Addend ---
Attending MD Review Statement Attending Statement Attending MD Statement: examined this patient, discuss w/resident/PA/BOOK STORE ASSOCIATE, agreed w/resident/PA/BOOK STORE ASSOCIATE, reviewed EMR data (avail), discussed w/nursing, discussed w/ case mgmt Attending Assessment/Plan: Laboratory Tests 09/27/16 0705: Anion Gap 7, Estimated GFR > 60, BUN/Creatinine Ratio 20.0, Total Bilirubin 0.6, Direct Bilirubin 0.3, AST 39 H, ALT 65 H, Alkaline Phosphatase 147 H, Total Protein 6.0 L, Albumin 3.2 L Vital Signs Date Time Temp Pulse Resp B/P Pulse O2 O2 Flow FiO2 Ox Delivery Rate 09/27 1153 Room Air Room Air 09/27 1139 Room Air Room Air 09/27 0838 98.0 80 18 108/64 95 Room Air 09/27 0800 Room Air 09/27 0009 98.8 80 20 140/80 95 Room Air 09/26 1810 98.6 90 16 112/62 94 Patient seen and examined at bedside. 89-year-old female admitted with ischemic stroke status post TPA with hemorrhagic transformation. Patient doing better now, still on dysphagia diet with pured food and honey thick liquids. Plan is to repeat the CAT scan of head tomorrow for stability of the hemorrhage. Patient's aphasia is much better. Plan is to discharge her tomorrow to subacute rehabilitation if her CAT scan is stable. Discussed with patient the care plan.
[2016-09-28 00:49] VITALS: BP 108/58
--- NOTE | 2016-09-28 01:00 | NUR ---
THE RF IV WAS NO LONGER WORKING/ + PHLEBITIS. REMOVED IV. AFTER 8 ATTEMPTS FROM OTHER NURSES TO GET AN IV, UNSUCCESSFUL. SPOKE TO RESIDENT GIANLUCA WHO SWITCHED IV UNASYN TO BID AUGMENTIN. PT AWARE OF CHANGE. AWARE THERE IS NO IV ACCESS.
--- NOTE | 2016-09-28 07:07 | PN- Housestaff ---
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 Patient seen and examined this morning. She feels well and has no complaints. Review of Systems Constitutional: Reports: see HPI. Objective Last 24 Hrs of Vital Signs/I&O Vital Signs Date Time Temp Pulse Resp B/P Pulse O2 O2 Flow FiO2 Ox Delivery Rate 09/28 0800 Room Air 09/28 0800 98.1 96 20 110/64 94 Room Air 09/28 0049 97.7 61 20 108/58 96 Room Air 09/28 0000 Room Air 09/27 1530 97.5 66 20 118/60 95 Room Air 09/27 1153 Room Air Room Air 09/27 1139 Room Air Room Air Intake & Output 09/28 1600 09/28 0800 09/28 0000 Intake Total 100 440 Output Total 400 200 Balance -300 240 Intake, IV 120 Intake, Oral 100 320 Number 100 Bowel Movements Output, Urine 400 200 Physical Exam General Appearance: Alert, Oriented X3, No Acute Distress HEENT: Atraumatic, Mucous Membr. moist/pink Neck: Supple Cardiovascular: Regular Rate, Normal S1, Normal S2, No Murmurs, Gallops, Rubs Lungs: Clear to Auscultation Abdomen: Soft, No Tenderness, Positive Bowel Sounds Extremities: No Clubbing, No Cyanosis, No Edema Current Medications: Current Medications Sig/Deion Start time Last Medication Dose Route Stop Time Status Admin Acetaminophen 1,000 MG Q6P PRN 09/24 1545 09/24 N/A 1 UNIT IV 1544 Amoxicillin/ 875 MG Q12 09/28 0130 09/28 Clavulanate Potassium PO 0318 Ampicillin Sodium/ 1,500 MG Q6 09/24 1800 DC 09/27 Sulbactam Sodium IV 1701 Sodium Chloride 100 ML Atorvastatin Calcium 80 MG 1700 09/23 1700 AC 09/27 PO 1701 Diclofenac Sodium 1 NENA 4 TIMES/DAY PRN 09/22 2014 09/22 TOP 2354 Orders Radiology Findings: CT HEAD W/O IV CONTRAST: Stable parenchymal hemorrhage in the medial left temporal lobe and retrolenticular capsule distorting the dorsal basal ganglia. Extensive chronic white matter microangiopathy and parenchymal volume loss with scattered chronic lacunar infarcts. Assessment/Plan Assessment: 89 y/o F with PMHx of recurrent TIAs and seizures who is admitted for ischemic CVA s/p tPA with hemorrhagic transformation. #Ischemic CVA: Etiology of stroke is unclear. Patient has not had any significant arrhythmias other than atrial and ventricular ectopy on telemetry. S /p tPA with hemorrhagic transformation. Repeat CT Head today with stable parenchymal hemorrhage. * Discharge to STR today. * Per neurology, prior to admission aspirin discontinued on discharge. Patient will follow up with neurology within two weeks of discharge at which point decision will be made whether to resume aspirin and start Plavix based on repeat imaging of the head. * Patient instructed to follow up with cardiology for possible outpatient work up to rule out arrhythmias that could be contributing to her current presentation. * S/p repeat swallow eval. Diet advanced to full chopped and nectar thick liquids. * Atorvastatin 80 mg PO daily added to discharge medications. #Possible aspiration pneumonia: Remains afebrile and without leukocytosis on day 5 of Unasyn. * Discontinue IV Unasyn. Diet: Heart Healthy - Full Chopped and [place] Thick Liquids. DVT PPx: ALPs CODE: DNR/DNI Problem List: 1. Dysphagia S/P CVA (cerebrovascular accident) 2. Aphasia S/P CVA 3. Hemorrhage in the brain 4. Ischemic stroke Pain Ratin Pain Location: N/A Pain Goal: Remain pain free Pain Plan: Voltaren gel Tomorrow's Labs & Rationales: None Discharge Plan Discharge Disposition: STR/NH Stable for Discharge? Yes Anticipated Discharge (Day): today
[2016-09-28 08:00] VITALS: BP 110/64
--- NOTE | 2016-09-28 08:56 | NUR ---
PT HAS NO IV ACCESS AT THIS TIME. [facility] INSTRUMENTS TUBE BENDER TRIED SEVERAL TIMES AND CELI JOYNER TRIED 2X THIS AM WITH NO LUCK. 0850 DIRECTOR OF THERAPY SERVICES MYRTLE CANTU AWARE AND STATES IT IS OK PT MAY BE D/C LATER ON TODAY.
--- NOTE | 2016-09-28 09:38 | NUR ---
Physical Therapy. Pt currently [facility] at [facility] [place]. PT will f/u as appropriate.
--- NOTE | 2016-09-28 10:16 | CT SCAN REPORT ---
EXAMINATION: CT HEAD WITHOUT CONTRAST CLINICAL INFORMATION: Evaluate for change of parenchymal hemorrhage. COMPARISON: Head CT from 09/26/2016. TECHNIQUE: Contiguous axial imaging was performed from the skull base to vertex without intravenous administration of contrast. DLP: 529.16 mGy-cm FINDINGS: A parenchymal hemorrhage in the medial left temporal lobe and retrolenticular capsule is without significant change, demonstrating a mild amount of surrounding edema. There is no evidence of acute territorial infarction. No new mass effect or midline shift is seen. Champion to white matter differentiation is well preserved. No extra-axial fluid collections are identified. There is no hydrocephalus. Extensive chronic white matter changes and parenchymal volume loss are again visible. Chronic lacunar infarcts again noted in the brainstem and the champion matter structures. The osseous structures and soft tissues are normal. The mastoid air cells and visualized portions of the paranasal sinuses are well aerated. Dolichoectasia of the vertebrobasilar vasculature again noted. IMPRESSION: Stable parenchymal hemorrhage in the medial left temporal lobe and retrolenticular capsule distorting the dorsal basal ganglia. Extensive chronic white matter microangiopathy and parenchymal volume loss with scattered chronic lacunar infarcts.
[2016-09-28 11:37] VITALS: BP 110/64
--- NOTE | 2016-09-28 11:54 | RADIOLOGY REPORT ---
EXAMINATION: XR MODIFIED BARIUM SWALLOW CLINICAL INFORMATION: Dysphagia following stroke. On mechanical soft/ground and nectar thick liquids. Diet after formal swallowing evaluation. COMPARISON: None. TECHNIQUE: A modified barium swallow was performed with speech pathologist in attendance. Pur?e, honey thick, nectar thick, thin, bread, and cracker consistencies were given to the patient and the swallowing mechanism was observed fluoroscopically with several spot films taken using the last image hold feature. FLUOROSCOPY TIME: 2 minutes 43 seconds. FINDINGS: With thin liquids taken from the cup or from a straw, penetration of contrast to the level of the cords is seen without eliciting a significant cough reflex. With all other consistencies, no laryngeal or nasopharyngeal aspiration seen. No significant pooling of contrast is noted in the valleculae or piriform sinuses. There is slight delay in initiation of a swallow with puree consistency. IMPRESSION: 1. Penetration of thin liquid contrast is seen to the level of the cords without significant cough reflex. 2. Slight delay in initiation of a swallow, observed primarily with puree consistency. 3. Speech pathologist assessment issued separately.
--- NOTE | 2016-09-28 12:19 | NUR ---
OCCUPATIONAL THERAPY NOTE: OT ATTEMPTED TO SEE PT IN AM. PT OFF UNIT FOR MBS, OT WILL F/U TOMORROW IF APPROPRIATE. THANK YOU.
== END 2016-09-28 13:04 | DRG 61 ==
LOC: ENRESERVDT → ENRESERVTM → ERH 16:47 → ENPENDDIS 18:24 → CRI 18:24 → ERHI 18:24 → CRI 20:49 → 1NO 09-25 19:31
PROVIDERS: Emergency Medicine; Internal Medicine; Internal Medicine Infectious Disease; Ophthalmology; Student in an Organized Health Care Education/Training Program; ADMIT Internal Medicine
DX: I63.9 Cerebral infarction, unspecified (principal); I61.9 Nontraumatic intracerebral hemorrhage, unspecified; J69.0 Pneumonitis due to inhalation of food and vomit; R47.01 Aphasia; I69.391 Dysphagia following cerebral infarction; I69.392 Facial weakness following cerebral infarction; R47.1 Dysarthria and anarthria; R00.0 Tachycardia, unspecified; E53.8 Deficiency of other specified B group vitamins; H35.30 Unspecified macular degeneration; K21.9 Gastro-esophageal reflux disease without esophagitis; M81.0 Age-related osteoporosis without current pathological fracture; F41.9 Anxiety disorder, unspecified; Z79.82 Long term (current) use of aspirin
CPT/HCPCS: 1NSP; CCU; 36415; 74230; 81001; 82436; 86803; 87040; 87086; 93005; 93010; 93306; 96105-GN; 96374; 96375; 97110-GO; 97116-GO; 97162-GP; 97165-GO; 97530-GO; J0131

== ENCOUNTER 2016-10-27 15:07 | Inpatient (IN) | payer OTHER, MEDICARE ==
[~2016-10-27] VITALS: Ht 154.9 cm; Wt 56.4 kg
[~2016-10-27 15:07] MED LIST: ASPIRIN325 M2 PO; ATORVASTATIN CA80 M1 PO; MONTELUKAST SOD10 M1 PO; VITAMIN B122500 MC2 PO
--- NOTE | 2016-10-27 15:26 | ED GENERAL ADULT ---
History of Present Illness General Chief Complaint: General Adult Stated Complaint: BIBA FOR ?GI BLEED Source: patient, family, old records Exam Limitations: no limitations Vital Signs & Intake/Output Vital Signs & Intake/Output Vital Signs Date Time Temp Pulse Resp B/P B/P Pulse O2 O2 Flow FiO2 Mean Ox Delivery Rate 10/27 1948 97.6 112 20 114/80 97 Room Air 10/27 1807 97.4 110 18 119/60 96 Room Air 10/27 1717 97.8 116 16 116/56 94 10/27 1615 120 90/54 10/27 1516 96 Room Air 10/27 1516 96.3 122 18 78/54 96 Room Air Allergies Coded Allergies: No Known Allergies (09/22/16) Reconcile Medications Atorvastatin Calcium 80 MG TABLET 80 MG PO 1700 CVA Cyanocobalamin (Vitamin B-12) (Vitamin B12) 2,500 MCG TAB.CHEW 1 TAB PO Q MONTH DEFICIENCY (Reported) Montelukast Sodium 10 MG TABLET 1 TAB PO DAILY ALLERGIES (Reported) Triage Nurses Notes Reviewed? yes HPI: Patient returned from lunch at her assisted living and Became Very Nauseous and Began Vomiting. There Was Blood in Her Vomitus. Patient Has Epigastric Crampy Abdominal Pain. There Is No Radiation. Pain Is Constant. She Rates It As 3 Out Of 10. Patient Brought in by Ambulance for Evaluation. Patient Is Hypotensive upon Presentation. Past History Travel History Traveled to [place] past 21 day No Medical History Any Pertinent Medical History? see below for history Neurological: dementia, TIA EENT: macular degeneration Gastrointestinal: GERD Musculoskeletal: osteoporosis, UNSTEADY GAIT HIP FX Psychiatric: anxiety Endocrine: B12 DEFICIENCY Blood Disorders: anemia History of MRSA: No History of VRE: No History of CDIFF: No Influenza Vaccine: 02/26/16 Surgical History Surgical History: unobtainable Psychosocial History What is your primary language Gambian Tobacco Use: Quit >30 days ago ETOH Use: denies use Illicit Drug Use: denies illicit drug use Family History Family History, If Any: MOTHER CVA SISTER FH: digestive disorders Hx Contributory? No Review of Systems Review of Systems Constitutional: Reports: no symptoms. EENTM: Reports: no symptoms. Respiratory: Reports: no symptoms. Cardiovascular: Reports: no symptoms. GI: Reports: see HPI, abdominal pain, nausea, vomiting. Genitourinary: Reports: no symptoms. Musculoskeletal: Reports: no symptoms. Skin: Reports: no symptoms. Neurological/Psychological: Reports: no symptoms. Hematologic/Endocrine: Reports: no symptoms. Immunologic/Allergic: Reports: no symptoms. All Other Systems: Reviewed and Negative Physical Exam Physical Exam General Appearance: well developed/nourished, alert, awake, anxious, moderate distress Head: atraumatic Eyes: Bilateral: PERRL, EOMI. Ears, Nose, Throat: normal pharynx, normal ENT inspection, hearing grossly normal Neck: normal inspection, supple, full range of motion Respiratory: normal breath sounds, chest non-tender, no respiratory distress, lungs clear Cardiovascular: regular rate/rhythm, normal peripheral pulses Gastrointestinal: normal bowel sounds, soft, non-tender, no organomegaly Rectal: LIGHT BROWN STOOL, HEME POSITIVE Back: normal inspection, normal range of motion Extremities: normal inspection, normal capillary refill, normal range of motion, no edema Neurologic/Psych: no motor/sensory deficits, awake, alert, oriented x 3, normal mood/affect Skin: intact, normal color, warm/dry Lymphatic: no anterior cervical lindy Core Measures ACS in differential dx? No CVA/TIA Diagnosis: No Severe Sepsis Present: No Septic Shock Present: No Progress Differential Diagnoses I considered the following diagnoses in my evaluation of the patient: [Upper GI bleed, esophageal varices, peptic ulcer disease, gastritis] Plan of Care: Orders Procedure Date/time Status ICU LAB BUNDLE 10/28 0500 Active CBC WITHOUT DIFFERENTIAL 10/28 0500 Active Nothing by Mouth 10/27 D Active CBC WITHOUT DIFFERENTIAL 10/27 2300 Active Wound Care/Dressing 10/27 1929 Complete Weight 10/27 1929 Active VTE Mechanical Prophylaxis 10/27 1929 Active Vital Signs 10/27 1929 Active Turn and Reposition 10/27 1929 Active Drains/Tubes 10/27 1929 Active Teach/Educate 10/27 1929 Active Skin Integrity Protocol 10/27 1929 Active Skin/Pressure Ulcer Assess (Sk 10/27 1929 Active Precautions 10/27 1929 Active Pain Treatment and Response 10/27 1929 Active Nutritional Intake, Monitor 10/27 1929 Active Isolation 10/27 1929 Active CIWA 10/27 1929 Complete Patient Care Conference 10/270 Active Activity/Ambulation 10/27 1929 Active BLOOD CULTURE 10/27 1750 Active Intake & Output 10/27 1749 Active US-UNILATERAL VENOUS DOPPLER 10/27 1721 Active US-LIMITED ABDOMEN 10/27 1721 Active URINALYSIS 10/27 1622 Active Pathway - chart 10/27 1616 Active House Staff 10/27 1616 Active Patient Data 10/27 1616 Active Code Status 10/27 1616 Active Patient Data 10/27 1606 Active Admit to inpatient 10/27 1559 Active TROPONIN LEVEL 10/27 1521 Complete PARTIAL THROMBOPLASTIN TIME 10/27 1521 Complete PROTHROMBIN TIME 10/27 1521 Complete COMPREHENSIVE METABOLIC PANEL 10/27 1521 Complete CBC WITHOUT DIFFERENTIAL 10/27 1521 Complete EKG 10/27 1521 Active TYPE & SCREEN (NOT X-MATCH) 10/27 1521 Complete VTE Mechanical Prophylaxis 10/27 UNK Active Hemoccult 10/27 UNK Active Current Medications Sig/Deion Start time Last Medication Dose Stop Time Status Admin Montelukast Sodium 10 MG AT BEDTIME 10/28 2200 AC (Singulair) Atorvastatin Calcium 80 MG DAILY 10/28 1000 AC (Lipitor) Sodium Chloride 1,000 ML Q10H 10/27 1730 AC 10/27 (Normal Saline 0.9%) 10/28 1329 1904 Morphine Sulfate 2 MG Q4P PRN 10/27 1615 AC 10/27 (Morphine) 1743 Pantoprazole Sodium 40 MG Q5H 10/27 1545 AC 10/27 (Protonix) 1600 Sodium Chloride 100 ML (Normal Saline 0.9%) Laboratory Tests 10/27/16 1625: CBC w Diff MAN DIFF ORDERED, RBC 3.72 L, MCV 87.6, MCH 28.3, RDW 15.3 H, MPV 7.5, Gran % 84.4 H, Lymphocytes % 7.5 L, Monocytes % 5.8, Eosinophils % 2.2, Basophils % 0.1, Absolute Granulocytes 14.3 H, Segmented Neutrophils 88 H, Absolute Lymphocytes 1.3, Lymphocytes 5 L, Monocytes 5, Absolute Monocytes 1.0 H, Eosinophils 2, Absolute Eosinophils 0.4, Absolute Basophils 0, Platelet Estimate VERIFIED BY SMEAR, Normochromic RBCs VERIFIED, Kortney Cells 1+, PUBS MCHC 32.3 L, Fld Total RBCs Counted 100 10/27/16 1610: Anion Gap 13, Estimated GFR > 60, BUN/Creatinine Ratio 27.1 H, Glucose 119 H, Calcium 7.9 L, Total Bilirubin 0.8, AST 95 H, ALT 93 H, Alkaline Phosphatase 446 H, Troponin I 0.03, Total Protein 5.7 L, Albumin 2.8 L, Globulin 2.9, Albumin/Globulin Ratio 1.0 L, PT 16.3 H, INR 1.56 H, APTT 24 L Microbiology 10/27 1914 BLOOD: Blood Culture - RECD 10/27 1899 BLOOD: Blood Culture - RECD Diagnostic Imaging: Viewed by Me: Radiology Read. Discussed w/RAD: Radiology Read. CXR Impression: PATIENT: NEVILLE GERMAN PRESENT AGE: 89 PATIENT ACCOUNT NO: [id number] : [birth year]27 LOCATION: [facility] ORDERING PHYSICIAN: DELFINA MALDONADO MD SERVICE DATE: 10/27/16 EXAM TYPE: RAD - XRY- PORTABLE CHEST XRAY EXAMINATION: XR PORTABLE CHEST CLINICAL INFORMATION: Shortness of breath. COMPARISON: 09/24/2016 TECHNIQUE: Portable frontal view of the chest was obtained. FINDINGS: Cardiac leads overlie the chest. Enteric tube terminates in the stomach. Low lung volumes. Soft tissue density overlying the right apex likely associated with patient's skin. No dense consolidation. No edema or effusion. No pneumothorax. The cardiomediastinal silhouette is unchanged, with a tortuous and calcified aorta. No acute osseous abnormality. IMPRESSION: No acute pulmonary findings. DICTATED BY: CAITLIN GOMEZ MD DATE /TIME DICTATED:10/27/161544 [employer] PL[employer] INTELLIGENCE OFFICER:KENROY DATE/TIME TRANSCRIBED: 10/27/161544 CONFIDENTIAL, DO NOT COPY WITHOUT APPROPRIATE AUTHORIZATION. < Electronically signed in Other Vendor System> SIGNED BY: CAITLIN GOMEZ MD 10/27/16 8323 Initial ED EKG: NSR, nonspecific ST T wave chg Prior EKG: unchanged Comments: NG tube placed by the ED physician and dark red blood obtained. No bright red blood came out. NG tube. D/W DR. BURNETT. HE WILL CONSULT. HE RECOMMENDS PROTONIX 80 MG BOLUS FOLLOWED BY A DRIP. Departure Departure Disposition: STILL A PATIENT Condition: Critical Clinical Impression Primary Impression: Upper GI hemorrhage Referrals: CRYSTAL LIRIANO,COLLETTE Atkinson Departure Forms: Customer Survey General Discharge Information Admission Note Spoke With: AJ LIRIANO,ROSENDA Canales Documentation of Exam: Documentation of any treatments & extenuating circumstances including Concerns Regarding Discharge (functional status, medication knowledge or non-compliance, living conditions, etc.) that warrant an admission rather than observation: [ICU ADMISSION, GI CONSULT (DR. BURNETT NOTIFIED), PROTONIX DRIP, IV FLUIDS, ENDOSCOPY] Critical Care Note Critical Care Note Critical Care Time: mins: (75 MIN)
--- NOTE | 2016-10-27 15:49 | RADIOLOGY REPORT ---
EXAMINATION: XR PORTABLE CHEST CLINICAL INFORMATION: Shortness of breath. COMPARISON: 09/24/2016 TECHNIQUE: Portable frontal view of the chest was obtained. FINDINGS: Cardiac leads overlie the chest. Enteric tube terminates in the stomach. Low lung volumes. Soft tissue density overlying the right apex likely associated with patient's skin. No dense consolidation. No edema or effusion. No pneumothorax. The cardiomediastinal silhouette is unchanged, with a tortuous and calcified aorta. No acute osseous abnormality. IMPRESSION: No acute pulmonary findings.
--- NOTE | 2016-10-27 16:16 | Cons- Gastroenterology ---
General Information and HPI Consulting Request Date of Consult: 10/27/16 Requested By: AJ LIRIANO,ROSENDA Canales Reason for Consult: Hematemesis & hypotension Source of Information: patient, family (pt's son, Blake & Selam ALVARADO), old records Exam Limitations: fair historian- mild dementia but A&Ox3 History of Present Illness: 89 y/o female, DNR/DNI (okay to intubate for procedure), history of seizures ( not on medications per neurology), non-HTN, non-DM, TIA 11/2015 (rxd ASA 325 mg daily then), osteoporosis, macular degeneration, B12 deficiency, low Vit D, mild dementia/cognitive impairment (makes her own medical decisions, but her son, Blake Sharma, & her DIL, Selam Sharma, both present in ER upon admission, have POA), ORIF left hip, recently admitted to [facility] 09/22/2016 - 2016, after presenting with slurred speech, expressive aphasia, & weakness & found to have acute CVA, 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 The above was superimposed on chronic white matter microangiopathy, parenchymal volume loss, and scattered chronic lacunar infarcts. The patient is currently not on any aspirin, NSAIDs, antiplatelet agents, or anticoagulants. She was discharged to SNF, and [facility] She was placed on a statin after the stroke. The patient is a nonsmoker. She had a history of at least moderate EtOH, up to 3-4 glasses of white wine daily for the past 2-3 years, stopping 06/2016, as she was told of elevated transaminases. There is no history of cirrhosis. Approximately 2:30 PM on 10/27/2016, the patient felt "sick." This was followed by multiple episodes of nausea, vomiting & retching, contents initially food, then dark blood. There was no bile from above. The patient also had localized epigastric pain. H. pylori status is unknown. She had no melena or BRBPR. Her bowel movements are normal, without any diarrhea, constipation, obstipation, tenesmus, or change in stool caliber. She last ate food on 10/26/2016 & had BOOST at 8 a.m. on 10/27/2016. She has never had an EGD. She claimed a colonoscopy done in [place], [place], approximately 2007 (? by whom), significant for inflammatory polyps removed. She was told to "come back in 10 years," but is of advanced age. The patient claimed she lost 5 pounds since her CVA a month ago. Her appetite is fairly good. She denied any GERD, odynophagia, early satiety, fevers, chills, chest pain, SOB, jaundice, pruritus, dark urine or light stools. She has residual mild expressive aphasia and mild dysphagia since the CVA, but is tolerates ground foods with thickened liquids. She has never been transfused previously. The patient denied any prior abdominal surgery or history of AAA. There is no family history of GI malignancy, GI disease, or inherited liver disease. She denied any significant Tylenol use, OTC medications, or herbal medications. Upon arrival to the [place] ER 10/27/2016 at 3:07 p.m., BP 78/54, P 122, R 18, T 96.3, O2 sat RA 96%. BP improved after IVF NS bolus x 1L. I advised Protonix 80 mg bolus, followed by Protonix drip at 8 mg/hr. NGT placed in the ER showed dark blood. I did a digital rectal exam in the ER showing brown, trace OB+ stool, without BRBPR or melena. I advised ICU admit & stabilization for EGD. *She denied any new medications, aside from the statins rxd after the CVA. baseline Hgb is in the 14-15 range. 02/24/2016:*normal LFTs 09/21/2016: Hep C Ab- neg 09/29/2016: BUN/Cr 8/0.6, GFR > 60, albumin 4.2, globulin 3.3, TBil 0.7, alk phos 198, AST 45, ALT 75 09/29/2016: WBC 11.6, H/H 15.1/46, PLT 318 10/27/2016: WBC 17 (84% gran, 14 gran Ab), H/H 10.5/32.5, MCV 87.6, RDW 15.3, PLT 227, PT 16.3, INR 1.56, PTT 24, glu 119, BUN/Cr 19/0.7, GFR > 60, Na 139, K 3.9, HCO3 19, AG 13, Ca 7.9, albumin 2.8, globulin 2.9, TBil 0.8, alk phos 446, AST 95, ALT 93, troponin .03 10/27/2016: EKG- ST @ 120, LAHB, normal intervals, PRWP V1-V6 with suggestion of old antlat [place], QS inferiorly, no acute T wave abnormalities. 10/27/2016: XR PORTABLE CHEST- No acute pulmonary findings. Allergies/Medications Allergies: Coded Allergies: No Known Allergies (09/22/16) Home Med List: Atorvastatin Calcium 80 MG TABLET 80 MG PO 1700 CVA Cyanocobalamin (Vitamin B-12) (Vitamin B12) 2,500 MCG TAB.CHEW 1 TAB PO Q MONTH DEFICIENCY (Reported) Montelukast Sodium 10 MG TABLET 1 TAB PO DAILY ALLERGIES (Reported) Current Medications: Current Medications Sig/Deion Start time Last Medication Dose Route Stop Time Status Admin Acetaminophen 325 MG Q6P PRN 10/27 1615 DC PO Atorvastatin Calcium 80 MG DAILY 10/28 1000 AC PO Atorvastatin Calcium 80 MG 1700 10/27 1700 DC PO Ketorolac 15 MG Q6P PRN 10/27 1615 DC Tromethamine IV Montelukast Sodium 10 MG AT BEDTIME 10/28 2200 AC PO Montelukast Sodium 10 MG AT BEDTIME 10/27 2200 DC PO Morphine Sulfate 0 .STK-MED ONE 10/27 1728 DC .ROUTE Morphine Sulfate 2 MG Q4P PRN 10/27 1615 AC 10/27 IV 1743 Pantoprazole Sodium 0 .STK-MED ONE 10/27 1554 DC IV Pantoprazole Sodium 80 MG ONCE ONE 10/27 1545 DC 10/27 IV 10/27 1546 1600 Pantoprazole Sodium 40 MG Q5H 10/27 1545 AC 10/27 Sodium Chloride 100 ML IV 1600 Potassium Chloride 10 MEQ Q1H 10/27 1730 AC 10/27 IV 10/27 1831 1755 Sodium Chloride 1,000 ML Q10H 10/27 1730 AC IV 10/28 1329 Sodium Chloride 1,000 ML BOLUS ONE 10/27 1615 DC 10/27 IV 10/27 1714 1616 Sodium Chloride 1,000 ML BOLUS ONE 10/27 1615 DC 10/27 IV 10/27 1714 1743 Sodium Chloride 1,000 ML BOLUS ONE 10/27 1530 DC 10/27 IV 10/27 [id number] Past History Travel History Traveled to [place] past 21 day No Medical History Blood Transfusion Hx: No Neurological: CVA, dementia, TIA EENT: macular degeneration Cardiovascular: LAHB; abnl EKG with normal EF Respiratory: NONE Gastrointestinal: reportedly hyperplastic colon polyps in [place], [place] 2007 Hepatic: abnl LFTs - ? w/u Renal: NONE Musculoskeletal: osteoporosis, UNSTEADY GAIT HIP FX Psychiatric: anxiety Endocrine: vitamin D deficiency, B12 DEFICIENCY Blood Disorders: baseline Hgb 14-15 Cancer(s): NONE POP SINGER/Reproductive: NONE Surgical History Surgical History: ORIF L hip, podiatric surgery Family History Relations & Conditions If Any: MOTHER, , Age 94; Cause: CVA (cerebral vascular accident). CVA FATHER ( from gas exposure in WWII). , Age 30-40. Psychosocial History Where Do You Live? Assisted Living ([facility]) Who Do You Live With? self Services at Home: possibly [facility] Speech T[facility] (unsure) Primary Language: Swedish Smoking Status: Never Smoked ETOH Use: heavy use (stopped 06/2016) Illicit Drug Use: denies illicit drug use Living Will? yes Power of Insurance Billing Clerk/HCP? yes Name of POA/HCP: Pt's sonBlake & Selam ALVARADO Other Social History: . Non-smoker. Past heavy EtOH (mod x yrs, then 3-4 glasses whie wine daily x 2-3 yrs, stopped 06/2016). 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 Had 2 sons. 1 son- 30, drug OD. 1 son- Blake- 59, [employer]- HTN/HLD. *For future reference, pt's son/POABlake- /[phone]; pt's DIL/POASelam- , [phone] Functional Ability ADLs Independent: dressing, eating, toileting. Needs Assist: bathing. Ambulation: walker, rolling walker since she had hip replacement surgery IADLs Independent: housework, telephone, medication admin. Needs Assist: shopping, finances, food prep, transportation. 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 Review of Systems Constitutional: Reports: unexplained weight loss (5 lbs/past month post CVA). Denies: chills, diaphoresis, fever, malaise, weakness. EENTM: Reports: visual changes (mac degen). Denies: blurred vision, double vision, eye pain, eye drainage, eye tearing, icterus, ear discharge, ear pain, ear redness, hearing changes, nasal congestion, epistaxis, nasal pain, throat pain, throat swelling, mouth pain, tooth pain. Cardiovascular: Reports: peripheral edema (lower R leg). Denies: chest pain, edema, orthopena, palpitations, syncope. Respiratory: Denies: cough, hemoptysis, orthopnea, short of breath, sputum production, stridor, wheezing. GI: Reports: abdominal pain (epigastric), nausea, vomiting (hematemesis). Denies: no symptoms (mild dysphagia post CVA), bloating, constipation, diarrhea, distention, bowel incontinence, melena, bloody stool, changes in stool, steatorrhea. Genitourinary: Denies: discharge, dysuria, frequency, hematuria, hesitation, nocturia, pain, urgency. Musculoskeletal: Denies: back pain, gout, joint pain, joint swelling, muscle pain, muscle stiffness, neck pain. Skin: Denies: cysts, change in skin color, change in hair/nails, dryness, erythema, jaundice, lesions, lymphangitis, lumps, moles, rash. Neurological/Psychological: Reports: anxiety, emotional problems, other (mild exp aphasia/dysph CVA). Denies: ataxia, cognitive dysfunction, confusion, depressed, dementia, headache, numbness, paresthesia, pre-existing deficit, petit mal seizures, tingling, tremors, tonic-clonic seizures, unable to move lower ext, unable to move upper ext, weakness. Hematologic/Endocrine: Denies: bruising, bleeding, polyuria, polydipsia. Immunologic/Allergic: Denies: splenectomy, HIV/AIDS, lymphadenopathy. All Other Systems: Reviewed and Negative Exam & Diagnostic Data Vital Signs and I&O Vital Signs Date Time Temp Pulse Resp B/P B/P Pulse O2 O2 Flow FiO2 Mean Ox Delivery Rate 10/27 1717 97.8 116 16 116/56 94 10/27 1615 120 90/54 10/27 1516 96 Room Air 10/27 1516 96.3 122 18 78/54 96 Room Air Intake & Output 10/27 1600 10/27 0400 10/26 1600 10/26 0400 10/25 0400 Intake Total Output Total Balance Patient 130 lb Weight Weight Estimated Measurement Method Physical Exam: Well-developed, well-nourished thin female, in no apparent distress. NGT- dark blood. Sclera anicteric. Conjunctiva pink. Oropharynx clear. No oral thrush. No aphthous ulcers. There is no adenopathy, thyromegaly, or JVD. Carotids 1+ B/L w/o bruit. No peripheral stigmata of inflammatory bowel disease or chronic liver disease on exam. No spiders on the anterior chest wall. Breast & pelvic: API. No CVA tenderness. Lungs: clear to A&P, with slight decreased BS at the bases B/L. Heart exam: regular rate rhythm, S1 and S2, soft I/IV diastolic murmur. Abdominal exam: normal bowel sounds, soft belly, mildly distended, nontender without guarding or rebound. No mass. No organomegaly. No fluid shift. No pulsatile mass. No epigastric bruit. Digital rectal exam: done by myself in the ER 10/27/16: brown stool, trace OB+, without BRBPR or melena. Extremities: without clubbing. 1+ pitting edema with corresponding hematoma lower right choudhary, slightly tender to touch (reportedly chronic). No palpable cords. No rash. Mild DJD without acute arthropathy. No palmar erythema. No Dupuytren's contractures. Distal pulses 1+ bilaterally. DTRs 1+ bilaterally. Alert and oriented x 3. Motor 5/5 B/L. Right handed. CN II-XII intact. Positive gag reflex. No tremor. No asterixis. Results Pertinent Lab Results: Laboratory Tests 10/27 10/27 1625 1610 Chemistry Sodium (137 - 145 mmol/L) 139 Potassium (3.5 - 5.1 mmol/L) 3.9 Chloride (98 - 107 mmol/L) 107 Carbon Dioxide (22 - 30 mmol/L) 19 L Anion Gap (5 - 16) 13 BUN (7 - 17 mg/dL) 19 H Creatinine (0.5 - 1.0 mg/dL) 0.7 Estimated GFR (>60 ml/min) > 60 BUN/Creatinine Ratio (7 - 25 %) 27.1 H Glucose (65 - 99 mg/dL) 119 H Calcium (8.4 - 10.2 mg/dL) 7.9 L Total Bilirubin (0.2 - 1.3 mg/dL) 0.8 AST (14 - 36 U/L) 95 H ALT (9 - 52 U/L) 93 H Alkaline Phosphatase (<127 U/L) 446 H Troponin I (< 0.11 ng/ml) 0.03 Total Protein (6.3 - 8.2 g/dL) 5.7 L Albumin (3.5 - 5.0 g/dL) 2.8 L Globulin (1.9 - 4.2 gm/dL) 2.9 Albumin/Globulin Ratio (1.1 - 2.2 %) 1.0 L Coagulation PT (9.4 - 12.5 SEC) 16.3 H INR (0.90 - 1.19) 1.56 H APTT (25 - 37 SEC) 24 L Hematology CBC w Diff MAN DIFF ORDERED WBC (4.8 - 10.8 /CUMM) 17.0 H RBC (4.20 - 5.40 /CUMM) 3.72 L Hgb (12.0 - 16.0 G/DL) 10.5 L Hct (37 - 47 %) 32.5 L MCV (81.0 - 99.0 FL) 87.6 MCH (27.0 - 31.0 PG) 28.3 RDW (11.5 - 14.5 %) 15.3 H Plt Count (130 - 400 /CUMM) 227 MPV (7.4 - 10.4 FL) 7.5 Gran % (42.2 - 75.2 %) 84.4 H Lymphocytes % (20.5 - 51.1 %) 7.5 L Monocytes % (1.7 - 9.3 %) 5.8 Eosinophils % (0 - 5 %) 2.2 Basophils % (0.0 - 2.0 %) 0.1 Absolute Granulocytes (1.4 - 6.5 /CUMM) 14.3 H Segmented Neutrophils (42.2 - 75.2 %) 88 H Absolute Lymphocytes (1.2 - 3.4 /CUMM) 1.3 Lymphocytes (20.5 - 51.1 %) 5 L Monocytes (1.7 - 9.3 %) 5 Absolute Monocytes (0.10 - 0.60 /CUMM) 1.0 H Eosinophils (0 - 5.0 %) 2 Absolute Eosinophils (0.0 - 0.7 /CUMM) 0.4 Absolute Basophils (0.0 - 0.2 /CUMM) 0 Platelet Estimate (ADEQUATE) VERIFIED BY SMEAR Normochromic RBCs VERIFIED Kortney Cells 1+ PUBS MCHC (33.0 - 37.0 G/DL) 32.3 L Other Body Source Fld Total RBCs Counted (%) 100 Imaging/Other Studies: 10/27/2016: EKG- ST @ 120, LAHB, normal intervals, PRWP V1-V6 with suggestion of old antlat [place], QS inferiorly, no acute T wave abnormalities. 10/27/2016: XR PORTABLE CHEST- No acute pulmonary findings. Assessment/Plan Assessment/Recommendations: 89 y/o female, DNR/DNI (okay to intubate for procedure), history of seizures ( not on medications per neurology), non-HTN, non-DM, TIA 11/2015 (rxd ASA 325 mg daily then), osteoporosis, macular degeneration, B12 deficiency, low Vit D, mild dementia/cognitive impairment (makes her own medical decisions, but her son, Blake Sharma, & her DIL, Selam Sharma, both present in ER upon admission, have POA), ORIF left hip, recently admitted to [facility] 09/22/2016 - 2016, after presenting with slurred speech, expressive aphasia, & weakness & found to have acute CVA, 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 The above was superimposed on chronic white matter microangiopathy, parenchymal volume loss, and scattered chronic lacunar infarcts. The patient is currently not on any aspirin, NSAIDs, antiplatelet agents, or anticoagulants. She was discharged to SNF, and [facility] She was placed on a statin after the stroke. The patient is a nonsmoker. She had a history of at least moderate EtOH, up to 3-4 glasses of white wine daily for the past 2-3 years, stopping 06/2016, as she was told of elevated transaminases. There is no history of cirrhosis. Approximately 2:30 PM on 10/27/2016, the patient felt "sick." This was followed by multiple episodes of nausea, vomiting & retching, contents initially food, then dark blood. There was no bile from above. The patient also had localized epigastric pain. H. pylori status is unknown. She had no melena or BRBPR. Her bowel movements are normal, without any diarrhea, constipation, obstipation, tenesmus, or change in stool caliber. She last ate food on 10/26/2016 & had BOOST at 8 a.m. on 10/27/2016. She has never had an EGD. She claimed a colonoscopy done in [place], [place], approximately 2007 (? by whom), significant for inflammatory polyps removed. She was told to "come back in 10 years," but is of advanced age. The patient claimed she lost 5 pounds since her CVA a month ago. Her appetite is fairly good. She denied any GERD, odynophagia, early satiety, fevers, chills, chest pain, SOB, jaundice, pruritus, dark urine or light stools. She has residual mild expressive aphasia and mild dysphagia since the CVA, but is tolerates ground foods with thickened liquids. She has never been transfused previously. The patient denied any prior abdominal surgery or history of AAA. There is no family history of GI malignancy, GI disease, or inherited liver disease. She denied any significant Tylenol use, OTC medications, or herbal medications. Upon arrival to the [facility] ER 10/27/2016 at 3:07 p.m., BP 78/54, P 122, R 18, T 96.3, O2 sat RA 96%. BP improved after IVF NS bolus x 1L. I advised Protonix 80 mg bolus, followed by Protonix drip at 8 mg/hr. NGT placed in the ER showed dark blood. I did a digital rectal exam in the ER showing brown, trace OB+ stool, without BRBPR or melena. I advised ICU admit & stabilization for EGD. *She denied any new medications, aside from the statins rxd after the CVA. baseline Hgb is in the 14-15 range. 02/24/2016:*normal LFTs 09/21/2016: Hep C Ab- neg 09/29/2016: BUN/Cr 8/0.6, GFR > 60, albumin 4.2, globulin 3.3, TBil 0.7, alk phos 198, AST 45, ALT 75 09/29/2016: WBC 11.6, H/H 15.1/46, PLT 318 10/27/2016: WBC 17 (84% gran, 14 gran Ab), H/H 10.5/32.5, MCV 87.6, RDW 15.3, PLT 227, PT 16.3, INR 1.56, PTT 24, glu 119, BUN/Cr 19/0.7, GFR > 60, Na 139, K 3.9, HCO3 19, AG 13, Ca 7.9, albumin 2.8, globulin 2.9, TBil 0.8, alk phos 446, AST 95, ALT 93, troponin .03 10/27/2016: EKG- ST @ 120, LAHB, normal intervals, PRWP V1-V6 with suggestion of old antlat [place], QS inferiorly, no acute T wave abnormalities. 10/27/2016: XR PORTABLE CHEST- No acute pulmonary findings. *Acute upper GI bleed in an elderly female with multiple comorbidities, as above. The patient was hypotensive and tachycardic. The elevated LFTs are noted. She previously abused alcohol, but there has been no definite past history of cirrhosis. She stopped drinking white wine in 06/2016, after having 3 -4 glasses daily for the prior 2-3 years. She has a normal platelet count 227, going against cirrhosis. Her INR is borderline and she has borderline albumin: globulin ratio. Her LFTs were previously normal on 02/24/2016. *Her only new medications are the statins, prescribed after her CVA in 09/2016. Rule out peptic ulcer disease, rule out neoplasm, rule out Sandi-Jones tear after retching, rule out angiodysplasia, rule out Dieulafoy lesion. Doubt variceal bleed or portal gastropathy. The elevated LFTs, especially the alkaline phosphatase, should be worked up further- possible drug-induced from statins ( although usually gives more of a transaminitis), rule out PBC, rule out AIH, rule out viral hepatitis, rule out HHC, etc. SUGGEST: Maintain NPO. ICU admit. 2 large bore IVs. Strict I/O's. Supplemental O2 as needed. T&C 2u PRBC. Check CBC Q6-8h for now. Maintain Hgb > 8 (? if underlying ASHD, with history of TIA/CVA & abnormal EKG, despite normal EF). Continue IV Protonx drip @ 8 mg/hr. *If okay with neurology & medicine, hold statins for now & follow trend of LFTs. Obviously, no aspirin, NSAIDs, or A/C therapy. For EGD later this p.m. . Informed consent for the EGD was obtained from the patient's son/POA, Blake Sharma, after careful explanation of the risks and benefits, although the patient is in agreement as well, as is her D-I-L/POA, Selam Sharma. They are all in agreement for potential intubation, if needed for EGD. *Vitamin K 10 mg sc daily x 3 days. *DVT prophylaxis giselle GRIMES. *Advise getting Hep A Ab, Hep Bs Ag, Hep C Ab, Hep B core Ab, Hep Bs Ab, CHAVO, AMA, Fe, TIBC, & ferritin. *Complete abdominal ultrasound (check liver & aorta). The case was discussed with the patient, her son/Blake SHIN, and [id number]/KIP, Selam, and the medical house staff. Further recommendations to follow, post EGD. 1 hour of ICU care was spent on the patient. Problem List: 1. Hypotension 2. Tachycardia 3. Upper GI hemorrhage 4. Abnormal LFTs 5. CVA (cerebral vascular accident) Copies To: AJ LIRIANO,ROSENDA Canales; DIETER LIRIANO,DENNY; CIERRA LIRIANO,DEE DEE Consult Acknowledgment - Thank you for your consult request.
[2016-10-27 16:51] LABS: ABSOLUTE BASOPHIL COUNT 0 /CUMM (0.0-0.2); ABSOLUTE EOSINOPHIL COUNT 0.4 /CUMM (0.0-0.7); ABSOLUTE GRANULOCYTE CT 14.3 /CUMM (1.4-6.5); ABSOLUTE LYMPH COUNT 1.3 /CUMM (1.2-3.4); BASOPHIL % 0.1 % (0.0-2.0); EOSINOPHIL % 2.2 % (0-5); HEMATOCRIT 32.5 % (37-47); MEAN CORPUSCULAR HGB 28.3 PG (27.0-31.0); MEAN CORPUSCULAR HGB CONC 32.3 G/DL (33.0-37.0); MEAN CORPUSCULAR VOLUME 87.6 FL (81.0-99.0); MEAN PLATELET VOLUME 7.5 FL (7.4-10.4); PLATELET COUNT 227 /CUMM (130-400); RBC DISTRIBUTION WIDTH 15.3 % (11.5-14.5); RED BLOOD CELL CT 3.72 /CUMM (4.20-5.40)
--- NOTE | 2016-10-27 16:53 | History & Physical ---
See Addendum REGINA HURT MD 10/27/16 9531: General Information and HPI MD Statement: I have seen and personally examined NATALIYA SHARMA and documented this H&P. The patient is a 89 year old F who presented with a patient stated chief complaint of hematemesis. Source of Information: patient, family, old records Exam Limitations: no limitations History of Present Illness: Ms. Sharma is a pleasant 89 year old female with PMH seizure (not on antiseizure medication), TIA November 2015, osteoporosis, reflux disease, macular degeneration, vitamin B12 deficiency, dementia/cognitive impairment, anxiety and anemia with recent discharge from [facility] after experiencing TIA with hemorrhagic conversion after receiving TPA who was transferred to [facility] from her assisted living facility [facility] after her nurse noticed that she was vomiting blood. The [id number] and son are at bedside and provide supplemental information to the history. According to the [id number], Nataliya was in her usual state of health this morning when she went to have her hair done. Subsequently, she noted she was very tired but offered no other complaints. Around 2:30 PM, her nurse noticed that she was vomiting blood and called for an ambulance to transfer her to the hospital. At that time, she denied fever, chills, chest pain, shortness of breath, abdominal pain, nausea or blood stool. Patient denies use of anticoagulants or the use of aspirin and only occasionally uses tylenol as needed. Currently, review of systems is negative except for mild substernal/epigastric discomfort. Social history is signfiicant for ETOH use. Nataliya enjoyed 2-3 glasses of white wine daily, though her last drink was the day she returned home after her last admission. She denies illicit drug use or tobacco use. Due to slight difficulty with swallowing after her last stroke, Natalyia follows a mechanical soft/ground diet. She has lost about 5-6 pounds since her stroke as well secondary to decreased appetite; she is on ensure for this. Nataliya had a previous colonoscopy about 8-9 years ago at which time polyps were removed, which were not noted to be cancerous. She has never had an endoscopy. She does not have motor weakness but does have slight difficulty with speech as a result of her prior CVA. Patient is DNR/DNI, will accept blood transfusions but at this point will not accept a central line. Allergies/Medications Allergies: Coded Allergies: No Known Allergies (09/22/16) Home Med list Atorvastatin Calcium 80 MG TABLET 80 MG PO 1700 CVA Cyanocobalamin (Vitamin B-12) (Vitamin B12) 2,500 MCG TAB.CHEW 1 TAB PO Q MONTH DEFICIENCY (Reported) Montelukast Sodium 10 MG TABLET 1 TAB PO DAILY ALLERGIES (Reported) Compliance With Home Meds: GOOD Past History Travel History Traveled to [place] past 21 day No Medical History Neurological: dementia, TIA EENT: macular degeneration Gastrointestinal: GERD Musculoskeletal: osteoporosis, UNSTEADY GAIT HIP FX Psychiatric: anxiety Endocrine: B12 DEFICIENCY Blood Disorders: anemia History of MRSA: No History of VRE: No History of CDIFF: No Influenza Vaccine: 02/26/16 Surgical History Surgical History: unobtainable Past Family/Social History Family History Relations & Conditions if any MOTHER CVA SISTER FH: digestive disorders Psychosocial History Where do you live? Assisted Living Who Do You Live With? self Services at Home: Nursing Primary Language: Zambian ETOH Use: Daily use until 2 weeks ago Illicit Drug Use: denies illicit drug use Living Will? yes (DNR/DNI) Functional Ability ADLs Independent: dressing, eating, toileting, bathing. Ambulation: walker, rolling walker since she had hip replacement surgery Sexual History Sexually Active No Review of Systems Review of Systems Constitutional: Reports: weakness. Denies: chills, fever. EENTM: Denies: visual changes, hearing changes, nasal congestion. Cardiovascular: Reports: peripheral edema (RLE swollen). Denies: chest pain. Respiratory: Denies: cough, short of breath, wheezing. GI: Reports: abdominal pain (Epigastric), vomiting. Denies: constipation, diarrhea, melena, nausea, bloody stool. Genitourinary: Denies: dysuria, hematuria. Musculoskeletal: Denies: back pain. Skin: Reports: dryness (Chronic), rash (Chronic LE skin changes). Neurological/Psychological: Denies: confusion, headache, numbness. Hematologic/Endocrine: Denies: bruising, bleeding. Immunologic/Allergic: Denies: splenectomy. All Other Systems: Reviewed and Negative Exam & Diagnostic Data Last 24 Hrs of Vital Signs/I&O Vital Signs Date Time Temp Pulse Resp B/P B/P Pulse O2 O2 Flow FiO2 Mean Ox Delivery Rate 10/27 1615 120 90/54 05/17 1516 96 Room Air 10/27 1516 96.3 122 18 78/54 96 Room Air Intake & Output 10/27 1600 10/27 0800 10/27 0000 Intake Total Output Total Balance Patient 130 lb Weight Weight Estimated Measurement Method Physical Exam General Appearance Alert, Oriented X3, Cooperative, No Acute Distress Skin No Significant Lesion, RLE chronic skin changes with scattered bruising Skin Temp/Moisture Exam: Warm/Dry Sepsis Skin Exam (color): Normal for Ethnicity HEENT Atraumatic, PERRLA, EOMI, Dry mucous membranes Neck Supple, No JVD Lymphatic Cervical nl Cardiovascular Regular Rate, Normal S1, Normal S2, No Murmurs Lungs Clear to Auscultation, Normal Air Movement Abdomen Normal Bowel Sounds, Soft, Slight tenderness to epigastric region, hypoactive bowel sounds Neurological Normal Tone Extremities No Clubbing, No Cyanosis, RLE slightly swollen compared to left Vascular Pulses Symmetrical Last 24 Hrs of Labs/West: Laboratory Tests 10/27/16 162: CBC w Diff MAN DIFF ORDERED, RBC 3.72 L, MCV 87.6, MCH 28.3, RDW 15.3 H, MPV 7.5, Gran % 84.4 H, Lymphocytes % 7.5 L, Monocytes % 5.8, Eosinophils % 2.2, Basophils % 0.1, Absolute Granulocytes 14.3 H, Segmented Neutrophils Pending, Absolute Lymphocytes 1.3, Absolute Monocytes 1.0 H, Absolute Eosinophils 0.4, Absolute Basophils 0, PUBS MCHC 32.3 L 10/27/16 1610: Anion Gap 13, Estimated GFR > 60, BUN/Creatinine Ratio 27.1 H, Glucose 119 H, Calcium 7.9 L, Total Bilirubin 0.8, AST 95 H, ALT 93 H, Alkaline Phosphatase 446 H, Troponin I 0.03, Total Protein 5.7 L, Albumin 2.8 L, Globulin 2.9, Albumin/Globulin Ratio 1.0 L, PT 16.3 H, INR 1.56 H, APTT 24 L Diagnostic Data EKG Results Sinus tachycardia, HR 120 bpm, LAD, no change from previous. CXR Results IMPRESSION: No acute pulmonary findings. Assessment/Plan Assessment: Ms. 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 Patient has no prior history of hematemesis or blood per rectum and has not been recently on anticoagulation. In the ED: Vital signs showed T 96.3, HR 122, RR 18, BP 78/54 increased to 116/ 56 after 2 L fluid bolus, O2 96% on room air. Labs showed: WBC 17, 10.5/32.5, Plt 227, Na 139, K 3.9, Cl 107, HCO3 17, BUN 19, Cre 0.7, Glu 119, AST 95, ALT 93, alk phos 446, trop 0.03, INR 1.56. CXR showed no acute pulmonary findings. Patient is admitted to the ICU and the following is the management: 1. Upper GI bleed * Admit to critical care unit, continuous telemetry monitoring and frequent vital sign checks * Type and screen, trend CBC Q8 hours and transfuse as needed to keep hgb >8 * GI consult placed and appreciated, follow up recommendations * IV protonix drip * 2 large bore IVs at all time * Continue IVF with NS at 100cc/h x 2 bags, patient already received 3 L NS * NPO with NGT in place, possible EGD later today with GI * No NSAIDS * No pharm DVTP, only ALPS * NO CENTRAL LINES as per patient request 2. History of CVA s/p TPA with hemorrhagic conversion * Currently no evidence of weakness or facial asymmetry on physical exam * Keep NPO for now but once diet is resumed, only mechanical soft/ground 3. Leukocytosis * Likely reactive * Patient is afebrile without bandemia, no report of fever, cough, sputum production, dysuria, sick contacts or other indications of infecitous etiology at this point * Monitor CBC, follow up blood cultures * F/U UA 4. Transaminitis * Possibly 2/2 ETOH use * Abdominal US of RUQ * Trend LFTs 5. Right lower extremity edema * Rule out DVT with doppler * No anticoagulants in the setting of GIB DNR/DNI NPO Mild to moderate pain pathway DVTP: ALPS As Ranked By This Provider Problem List: 1. Upper GI hemorrhage 2. Dysphagia S/P CVA (cerebrovascular accident) 3. Aphasia S/P CVA 4. CVA (cerebral vascular accident) Core Measures/Miscellaneous Acute Coronary Syndrome ACS Diagnosis: No Cerebrovascular Accident CVA/TIA Diagnosis: No Congestive Heart Failure CHF Diagnosis: No Venous Thromboembolism VTE Risk Factors: Acute medical illness, Age > 40 [facility] prophylaxis d/t: No contraindications No VTE Pharm Prophylaxis d/t: Active bleeding VTE Diagnosis: No VTE Type: NONE VTE Confirmed by (Test): NONE Severe Sepsis Severe Sepsis Present: No Septic Shock Septic Shock Present: No Miscellaneous Documentation Attending Case Discussed With: AJ LIRIANO,ROSENDA Canales Primary Care Physician: DIETER LIRIANO,DENNY Patient sees these Specialists Unknown. Level of Patient Care: Critical Care (CRI) LOUIS BUNCH 10/27/16 1714: Resident Review Statement Resident Statement: examined this patient, discussed with development intern Other Findings: Patient is 89-year-old female with past medical history of recent ischemic stroke(status post TPA with hemorrhagic conversion on 09/22/2016), history of seizures(not on any medications), alcohol abuse, osteoporosis, macular degeneration, vitamin B12 deficiency, dementia cognitive impairment, GERD was brought into the ED by ambulance for vomiting up bright red blood this afternoon. The patient resides at [facility]. As per the patient's daughter in law, patient was in her usual state of health this morning and had her hair done and which she was feeling very tired. At around 2:30 PM, the nurse at the assisted living facility noted that she was vomiting up bright red blood. The family received a call from the facility that the patient is being sent to the hospital for persistent bloody vomiting. Patient denies any fevers, chills, nausea, chest pain, diarrhea, constipation, blood in urine or stools. She has long history of alcohol abuse and was drinking about 2-3 small bottles of white wine until her stroke in September. No history of NSAID abuse. She had a colonoscopy about 8-10 years back at [facility] which revealed some polyps which were benign. Never had any endoscopy. She has history of multiple falls at the facility and easy bruising of her skin as per the family. No family history of bleeding disorders. Recent weight loss of about 5-6 pounds as per family. Uses a rolling walker for ambulation. Of note, patient was in [facility] after being discharged from [facility] for 2 weeks and during that time she had one episode of severe epigastric pain but no hematemesis. Patient does problems with swallowing post the stroke and usually eats mechanical ground to soft diet with thickened liquids. In the ED vitals showed a temperature of 96.5, pulse 122, respiration 18, blood pressure 78/54, saturating 96% on room air. Labs showed white count of 17, H&H of 10.5/32.5, normal electrolytes, AST 95, ALT 93, alkaline phosphatase 446, troponin 0.03, albumin 2.8, INR 1.56 Chest x-ray was normal Patient received 3 L IV fluids and was started on a Protonix drip in the ED after 80 mg Protonix push Physical examination: Gen.: Awake alert oriented 3, in moderate distress, cachectic HEENT: NG tube in place draining bright red blood, PERRLA, EOMI CVS :S1 and S2 heart, no murmurs rubs or gallops Chest: Clear lungs, no respiratory distress Abdomen:bowel sounds positive, mild tenderness in the epigastric area Extremities: Bruising seen over the right lower extremity, right leg appears bigger than the left. Assessment * Upper GI bleed could be secondary to varices given her long-standing alcohol history or ulcers * History of recent ischemic stroke status post TPA with hemorrhagic conversion * Dysphagia status post stroke on mechanical soft ground diet and thickened liquid * History of multiple falls * Osteoporosis * Alcohol abuse * GERD * Transaminitis AST 95, ALT 93, alkaline phosphatase 446 * Leukocytosis, likely reactive Plan * Admit to ICU * Vitals every hour * 2 wide bore IVs * Continue NG tube for now * Aggressive fluid resuscitation with normal saline at 125 mL an hour. Received 3 L saline bolus in the ED. * Type and screen patient. Patient agreeable to blood transfusion though denying a central line at this point. * We'll check CBCs every 8 hours now * Check Hemoccult * Transfuse to keep hemoglobin more than 8 * Continue IV Protonix drip * Maintain patient nothing by mouth for possible endoscopy by GI * GI consult appreciated * Right upper quadrant ultrasound for transaminitis * Ultrasound of right lower extremity to rule out DVT * Leukocytosis is likely reactive, will watch off antibiotics and obtain blood cultures. * DVT prophylaxis Alps * Nothing by mouth * DNR/DNI, OK to for transfusions, denies central line ( we will readdress if needed) * Mild/moderate pain pathway AJ LIRIANO,[facility] 10/27/162030: Attending MD Review Statement Attending Statement Attending MD Statement: examined this patient, discuss w/resident/PA/CLINICAL LABORATORY ASSISTANT, agreed w/resident/PA/CLINICAL LABORATORY ASSISTANT, discussed with family, reviewed EMR data (avail), discussed with nursing, discussed with case mgmt, reviewed images, amended to note Attending Assessment/Plan: Seen and examined independently Discuss with the family discussed with the residents History as above Physical Exam: Well-developed, well-nourished thin female, in no apparent distress. NGT- dark blood. Sclera anicteric. Conjunctiva pink. Oropharynx clear. No oral thrush. No aphthous ulcers. There is no adenopathy, thyromegaly, or JVD. Carotids 1+ B/L w/o bruit. No peripheral stigmata of inflammatory bowel disease or chronic liver disease on exam. No spiders on the anterior chest wall. Breast & pelvic: API. No CVA tenderness. Lungs: clear to A&P, with slight decreased BS at the bases B/L. Heart exam: regular rate rhythm, S1 and S2, soft I/IV diastolic murmur. Abdominal exam: normal bowel sounds, soft belly, mildly distended, nontender without guarding or rebound. No mass. No organomegaly. No fluid shift. No pulsatile mass. No epigastric bruit. Digital rectal exam: done by myself in the ER 10/27/16: brown stool, trace OB+, without BRBPR or melena. Extremities: without clubbing. 1+ pitting edema with corresponding hematoma lower right choudhary, slightly tender to touch (reportedly chronic). No palpable cords. No rash. Mild DJD without acute arthropathy. No palmar erythema. No Dupuytren's contractures. Distal pulses 1+ bilaterally. DTRs 1+ bilaterally. Alert and oriented x 3. Motor 5/5 B/L. Right handed. CN II-XII intact. Positive gag reflex. No tremor. No asterixis. Full 14 point ROS oherwise noncontributory, and as above. Review of Systems Constitutional: Reports: unexplained weight loss (5 lbs/past month post CVA). Denies: chills, diaphoresis, fever, malaise, weakness. EENTM: Reports: visual changes (mac degen). Denies: blurred vision, double vision, eye pain, eye drainage, eye tearing, icterus, ear discharge, ear pain, ear redness, hearing changes, nasal congestion, epistaxis, nasal pain, throat pain, throat swelling, mouth pain, tooth pain. Cardiovascular: Reports: peripheral edema (lower R leg). Denies: chest pain, edema, orthopena, palpitations, syncope. Respiratory: Denies: cough, hemoptysis, orthopnea, short of breath, sputum production, stridor, wheezing. GI: Reports: abdominal pain (epigastric), nausea, vomiting (hematemesis). Denies: no symptoms (mild dysphagia post CVA), bloating, constipation, diarrhea, distention, bowel incontinence, melena, bloody stool, changes in stool, steatorrhea. Genitourinary: Denies: discharge, dysuria, frequency, hematuria, hesitation, nocturia, pain, urgency. Musculoskeletal: Denies: back pain, gout, joint pain, joint swelling, muscle pain, muscle stiffness, neck pain. Skin: Denies: cysts, change in skin color, change in hair/nails, dryness, erythema, jaundice, lesions, lymphangitis, lumps, moles, rash. Neurological/Psychological: Reports: anxiety, emotional problems, other (mild exp aphasia/dysph CVA). Denies: ataxia, cognitive dysfunction, confusion, depressed, dementia, headache, numbness, paresthesia, pre-existing deficit, petit mal seizures, tingling, tremors, tonic-clonic seizures, unable to move lower ext, unable to move upper ext, weakness. Hematologic/Endocrine: Denies: bruising, bleeding, polyuria, polydipsia. Immunologic/Allergic: Denies: splenectomy, HIV/AIDS, lymphadenopathy. All Other Systems: Reviewed and Negative Ms. 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 She came in with Severe upper GI bleed with hemodynamic compromise She's been adequately fluid resuscitated She did get an upper endoscopy which shows significant lesion in the duodenum which appears to be compressing from side. Differential diagnoses include aortoenteric fistula versus a large mass in the pancreas. RECOMMENDATION Discussed with the family extensively over the telephone Previous wishes of the patient were exposed that she did not want any invasive workup Due to the fact that she has had recent stroke and worsening performance status, recent stroke patient did not wish any surgery or any further workup. Families wishes were to make her comfort care if she gets worse in the future these with the patient's wishes as well. At this time we will treat her symptomatically If she gets significant hematemesis we will give her complete comfort care with morphine and Ativan No further blood draws No transfusions If she is relatively stable we will start her on a liquid diet for comfort Prognosis very poor Patient is critically ill total time spent 40 minutes
[2016-10-27 16:57] LABS: PT 16.3 SEC (9.4-12.5); PTT 24 SEC (25-37)
[2016-10-27 17:00] LABS: GRANULOCYTE % 84.4 % (42.2-75.2)
[2016-10-27 19:49] VITALS: BP 114/80
--- NOTE | 2016-10-27 20:07 | ULTRASOUND REPORT ---
EXAMINATION: US ABDOMEN LIMITED CLINICAL INFORMATION: Elevated LFTs. Rule out liver pathology.. COMPARISON: None TECHNIQUE: Real-time imaging of the right upper quadrant abdominal viscera. FINDINGS: PANCREAS: The pancreas is not well visualized secondary to bowel gas. LIVER: Limited visualization of the liver. The liver demonstrates normal size and contour with increased echogenicity. No focal lesion or intrahepatic biliary duct dilatation. GALLBLADDER: There is hyperechoic material within the gallbladder lumen without posterior shadowing. This demonstrates no vascularity, most suggestive of tumefactive sludge. No gallbladder wall thickening or pericholecystic fluid. COMMON BILE DUCT: Normal in caliber measuring 0.4 cm in diameter. RIGHT KIDNEY: Normal. No hydronephrosis. No renal calculi or focal parenchymal lesions. The kidney measures 10 cm in maximum dimension. FREE FLUID: None. OTHER: There is a hypoechoic structure within the epigastric region which is vascular on Doppler imaging. This measures 6.8 x 4.9 x 6.5 cm. This has mixed arterial and venous spectral waveforms. The origin of this lesion is nonspecific on this limited evaluation. IMPRESSION: 1. Nonspecific hypoechoic structure within the epigastric region with prominent vascularity demonstrating arterial and venous waveforms. This is suspicious for a pseudoaneurysm, of uncertain origin. Further evaluation is recommended with a CT angiogram of the abdomen. 2. Evaluation is limited on this study. There is likely hepatic steatosis. No gross hepatic lesion seen. 3. Hyperechoic material within the gallbladder most suggestive of tumefactive sludge. This critical result was discussed with Dr. Hale by telephone at 10/27/2016 7:59 PM and it was ascertained that the content and urgency of the report was understood at the time of direct communication.
--- NOTE | 2016-10-27 20:59 | Event Note ---
Event Note Event Note: Patient had upper endoscopy at bedside by Dr. Vela which showed bleeding from large ulcerated mass> 3 cm with eschar and oozing at the roof of the early portion of the duodenum. Differentials were aortoenteric fistula (as an hypoechoic structure was seen in the epigastric region with prominent vascularity)/ pancreatic mass/ malignancy. It could not be clipped due to the size. This critical finding was discussed by Dr. Vela with the family members extensively over the phone. Further intervention would require invasive imaging/ surgical evaluation/ IR procedure. The patient did not wish any kind of invasive workup and refused any kind of further surgery/invasive imaging. Family wished to make her comfort care as per her wishes. The CODE STATUS was changed to comfort measures only. Patient at this time,she is being treated symptomatically. NG tube has been pulled out. We will continue IV fluids and IV Protonix drip at this time. If she gets significant hematemesis we will continue Ativan and morphine. Patient will have no further blood draws or blood transfusions. We will order liquid diet if patient is able to tolerate it.
--- NOTE | 2016-10-27 21:20 | Proc Note Endoscopy ---
Endoscopy Procedure Medical History: unchanged Mental Status: alert/oriented Heart/Lung Eval Prior to Sedation: within normal limits Candidate for Sedation? 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 The patient is not on any antiplatelet agents, NSAIDs, or anticoagulants. Instrument: diagnostic gastroscope Meds Received: MAC Patient's Tolerance: good Complications: none Extent Reached: D3 Procedure: Upper endoscopy to the third portion of the duodenum was performed with the Olympus high definition videoendoscope, after obtaining informed consent from the patient's son/POA, Blake Sharma, with the cardiac catheterization technician and pulse oximeter, with the assistance of the GI RNs, Jh, & Dr. Schaefer, of [facility]. The NG tube was removed preoperatively. A mouthpiece was placed in the usual fashion to protect the patient's teeth. The Super Nova apparatus was used, per anesthesia. The patient was placed in the left lateral decubitus position and sedated by [facility]. At this point, the endoscope was advanced from the mouth into the esophagus, using direct visualization technique. I did not get a good look at the vocal cords appeared normal. The proximal esophageal mucosa appeared normal. There were no esophageal rings, webs, lesions, strictures, or ulcers. There was no monilia or vesicles. There was no esophageal ribbing. The Z line was well demarcated at 39 cm. There was a scant hiatal hernia pouch. I did not appreciate any Maverick erosions. There was an incidental linear NG tube erosion with a small clot at the Z line, which was left intact. This was not the cause of the bleeding. No definite Sandi- Jones tear was seen. Otherwise, no significant esophageal inflammation was seen. There were no ectopic islands, nor gross Bentley's esophagus. There were no esophageal or gastric varices. The aponte of the stomach distended normally with air insufflation. Direct and retroflexed views of the stomach were performed. There was nothing endoscopically to suggest gastroparesis or portal gastropathy. Large amounts of old blood were seen in the stomach, the majority of which was washed and suctioned essentially clear. The mucosa of the gastric cardia appeared normal. A portion of the gastric fundus was obscured by old blood. The remainder of the gastric fundus was normal. The lesser curvature, incisura, body, and antrum appeared normal, without any gastric ulcers or gastric lesions. The pylorus was patent, without any gastric outlet obstruction or channel ulcer. The duodenal bulb appeared normal. A small amount of fresh blood was seen emanating from the duodenal sweep, and was copiously irrigated with H20. *A huge > 3 cm ulcerated mass with eschar and oozing, was noted at the roof of the early portion of the duodenal sweep. A focal artery was not seen, but this was diffusely oozing. It almost appeared to be 180, as it seemed to erode through the roof of the duodenal sweep in a malorie-circumferential fashion. It was too large to clip, & left intact without therapeutics (i.e.- cautery, Epinephrine injection, etc.), for fear making it worse (*possible aorto-enteric fistula, rule out neoplasm, possible ampullary and/or pancreatic lesion, etc.). I was not able to definitely identify the ampulla with the direct-viewing scope, and it is possible the above ulcerated lesion could have been encompassing this. The remainder of the duodenal sweep and third portion of the duodenum appeared normal, without any additional distal ulcerations, or angiodysplasias. Aside from the ulcerated mass at the roof of the early aspect of the duodenal sweep, the folds of the second and third portions of the duodenum were otherwise normal in caliber, without any flattening, nodularity, scalloping, or mosaic pattern. No active upper GI bleeding was seen. The patient tolerated the procedure well. She did not need to be intubated intraoperatively. Documenting photographs were placed inside the patient's chart. Impression: 1. Huge > 3 cm ulcerated mass with eschar and oozing at the roof of the early portion of the duodenal sweep, too large to clip, left intact without therapeutics, for fear making it worse (possible aorto-enteric fistula, rule out neoplasm, possible ampullary and/or pancreatic lesion, etc.) 2. Portion of the gastric fundus obscured by old blood. 3. NG tube erosion at the Z line at 39 cm. 4. Scant hiatal hernia pouch. *At the conclusion of the EGD, I found out that the medical house staff had already ordered 10/27/2016: RUQ sono- fatty liver, normal gallbladder except sludge, CBD 4 mm, * 6.8 x 4.9 x 6.5 cm hypoechoic structure in the epigastric region with prominent vascularity, demonstrating arterial and venous waveforms, questionable pseudoaneurysm. *This would make an aorto-enteric fistula a distinct possibility. Recommendations: Dr. Hale & Sue had a long talk with the patient, her son/POA, Blake Sharma, & her D-I-L/POA, Selam Sharma, postoperatively. The above diagnostic possibilities were discussed with them in detail. The patient is DNR/DNI, has a living will, and just had a hemorrhagic CVA. An aggressive workup of the above would entail CTA abdomen, general surgery consult, vascular surgery consult, and/or possible intervention by IR, with the possibility of prolonged intubation. The patient is A & Ox3. The patient's wishes and her POA's wishes (Blake & Selam Sharma) are Comfort Care. Therefore, I will sign off from a GI perspective. The case was also discussed with the medical house staff and with Dr. Hale postoperatively. CC: AJ LIRIANO,ROSENDA Canales; DIETER LIRIANO,DENNY; CIERRA LIRIANO,DEE DEE
[2016-10-27 23:59] VITALS: BP 100/72
--- NOTE | 2016-10-28 06:56 | PN- Housestaff ---
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 Subjective: Patient seen and examined at bedside this AM. [id number] present and participating in discussion regarding current care. Patient and family continue to want COMFORT CARE ONLY. They would like to advance the diet to regular so she can have oatmeal. They favor discontinued IVF and the protonix drip but are amenable to protnox injection. Family would also appreciate hospice consult for possible home-hospice care. Case management will be made aware. Review of Systems Constitutional: Reports: malaise. Denies: fever. EENTM: Denies: visual changes, hearing changes, nasal congestion. Cardiovascular: Denies: chest pain. Respiratory: Denies: short of breath. Gastrointestinal: Reports: nausea. Denies: abdominal pain, vomiting. Genitourinary: Denies: dysuria. Musculoskeletal: Denies: back pain. Skin: Denies: rash. Neurological/Psychological: Denies: confusion, numbness. Objective Last 24 Hrs of Vital Signs/I&O Vital Signs Date Time Temp Pulse Resp B/P B/P Pulse O2 O2 Flow FiO2 Mean Ox Delivery Rate 10/28 0400 Nasal 2.0L Cannula 10/28 0000 97 Nasal 2.0L Cannula 10/27 2359 98.5 98 26 100/72 97 Nasal 2.0L Cannula 10/27 1949 97.6 112 20 114/80 97 Room Air 10/27 1807 97.4 110 18 119/60 96 Room Air 10/27 1717 97.8 116 16 116/56 94 10/27 1615 120 90/54 10/27 1516 96 Room Air 10/27 1516 96.3 122 18 78/54 96 Room Air Intake & Output 10/28 1600 10/28 0800 10/28 0000 Intake Total 960 2597 Output Total 500 250 Balance 460 2347 Intake, IV 960 2537 Intake, Oral 60 Number 0 Bowel Movements Output, Urine 500 250 Patient 124 lb Weight Weight Bed scale Measurement Method Physical Exam General Appearance: Alert, Cooperative, No Acute Distress Skin: No Significant Lesion Skin Temp/Moisture Exam: Warm/Dry HEENT: Atraumatic, Dry mucous membranes Neck: Supple, No JVD Lymphatic: Cervical nl Cardiovascular: Regular Rate Lungs: Normal Air Movement, No respiratory distress, lungs expand symmetrically Abdomen: Hypoactive bowel sounds, nontender to palpation x 4 Neurological: Normal Speech, Normal Tone Extremities: No Edema Vascular: Pulses Symmetrical Current Medications: Current Medications Sig/Deion Start time Last Medication Dose Route Stop Time Status Admin Acetaminophen 325 MG Q6P PRN 10/27 1615 DC PO Atorvastatin Calcium 80 MG DAILY 10/28 1000 CAN PO Atorvastatin Calcium 80 MG 1700 10/27 1700 DC PO Chlorhexidine 1 GM .STK-MED ONE 10/28 0726 DC Gluconate TOP 10/28 0727 Ketorolac 15 MG Q6P PRN 10/27 1615 DC Tromethamine IV Montelukast Sodium 10 MG AT BEDTIME 10/28 2200 CAN PO Montelukast Sodium 10 MG AT BEDTIME 10/27 2200 DC PO Morphine Sulfate 0 .STK-MED ONE 10/27 1728 CAN .ROUTE Morphine Sulfate 2 MG Q4P PRN 10/27 1615 AC 10/27 IV 1743 Ondansetron HCl 4 MG ONCE ONE 10/28 0815 UNVr 10/28 IV 10/28 0816 0815 Pantoprazole Sodium 40 MG BID 10/28 1000 UNVr 10/28 IV 0816 Pantoprazole Sodium 0 .STK-MED ONE 10/27 1554 DC IV Pantoprazole Sodium 80 MG ONCE ONE 10/27 1545 DC 10/27 IV 10/27 1546 1600 Pantoprazole Sodium 40 MG Q5H 10/27 1545 DC 10/28 Sodium Chloride 100 ML IV 0158 Potassium Chloride 10 MEQ Q1H 10/27 1730 DC 10/27 IV 10/27 1831 1904 Sodium Chloride 1,000 ML Q10H 10/27 1730 DC 10/28 IV 10/28 1329 0126 Sodium Chloride 1,000 ML BOLUS ONE 10/27 1615 DC 10/27 IV 10/27 1714 1616 Sodium Chloride 1,000 ML BOLUS ONE 10/27 1615 DC 10/27 IV 10/27 1714 1743 Sodium Chloride 1,000 ML BOLUS ONE 10/27 1530 DC 10/27 IV 10/27 1629 1527 Last 24 Hrs of Lab/West Results Last 24 Hrs of Labs/Mics: Laboratory Tests 10/28/16 0500: Sodium Cancelled, Potassium Cancelled, Chloride Cancelled, Carbon Dioxide Cancelled, Anion Gap Cancelled, BUN Cancelled, Creatinine Cancelled, Glucose Cancelled, Calcium Cancelled, Phosphorus Cancelled, Magnesium Cancelled, Total Bilirubin Cancelled, AST Cancelled, ALT Cancelled, Albumin Cancelled, CBC w Diff Cancelled, WBC Cancelled, RBC Cancelled, Hgb Cancelled, Hct Cancelled, MCV Cancelled, MCH Cancelled, RDW Cancelled, Plt Count Cancelled, MPV Cancelled, PUBS MCHC Cancelled 10/27/16 1625: CBC w Diff MAN DIFF ORDERED, RBC 3.72 L, MCV 87.6, MCH 28.3, RDW 15.3 H, MPV 7.5, Gran % 84.4 H, Lymphocytes % 7.5 L, Monocytes % 5.8, Eosinophils % 2.2, Basophils % 0.1, Absolute Granulocytes 14.3 H, Segmented Neutrophils 88 H, Absolute Lymphocytes 1.3, Lymphocytes 5 L, Monocytes 5, Absolute Monocytes 1.0 H, Eosinophils 2, Absolute Eosinophils 0.4, Absolute Basophils 0, Platelet Estimate VERIFIED BY SMEAR, Normochromic RBCs VERIFIED, Kortney Cells 1+, PUBS MCHC 32.3 L, Fld Total RBCs Counted 100 10/27/16 1610: Anion Gap 13, Estimated GFR > 60, BUN/Creatinine Ratio 27.1 H, Glucose 119 H, Calcium 7.9 L, Total Bilirubin 0.8, AST 95 H, ALT 93 H, Alkaline Phosphatase 446 H, Troponin I 0.03, Total Protein 5.7 L, Albumin 2.8 L, Globulin 2.9, Albumin/Globulin Ratio 1.0 L, PT 16.3 H, INR 1.56 H, APTT 24 L Microbiology 10/27 1914 BLOOD: Blood Culture - RECD 10/27 1899 UPPER RESP: Surveillance Culture - RECD 10/27 1899 BLOOD: Blood Culture - RECD 10/27 UNK GI: Surveillance Culture - RECD Orders Radiology Findings: CXR: IMPRESSION: No acute pulmonary findings. Miscellaneous Findings: Endoscopy procedure findings: 1. Huge > 3 cm ulcerated mass with eschar and oozing at the roof of the early portion of the duodenal sweep, too large to clip, left intact without therapeutics, for fear making it worse (possible aorto-enteric fistula, rule out neoplasm, possible ampullary and/or pancreatic lesion, etc.) 2. Portion of the gastric fundus obscured by old blood. 3. NG tube erosion at the Z line at 39 cm. 4. Scant hiatal hernia pouch. Abdominal US: IMPRESSION: 1. Nonspecific hypoechoic structure within the epigastric region with prominent vascularity demonstrating arterial and venous waveforms. This is suspicious for a pseudoaneurysm, of uncertain origin. Further evaluation is recommended with a CT angiogram of the abdomen. 2. Evaluation is limited on this study. There is likely hepatic steatosis. No gross hepatic lesion seen. 3. Hyperechoic material within the gallbladder most suggestive of tumefactive sludge. Assessment/Plan Assessment: Ms. Sharma is a pleasant 89 year old female with PMH seizure disorder, TIA and CVA s/p hemorrhagic conversion (September 2016), reflux disease, osteoporosis, vitamin B12 deficiency, macular degeneration, dementia/cognitive impairment, anxiety and anemia who presented with chief complaint of vomiting blood. Patient has no prior history of hematemesis or blood per rectum and has not been recently on anticoagulation. In the ED: Vital signs showed T 96.3, HR 122, RR 18, BP 78/54 increased to 116/ 56 after 2 L fluid bolus, O2 96% on room air. Labs showed: WBC 17, 10.5/32.5, Plt 227, Na 139, K 3.9, Cl 107, HCO3 17, BUN 19, Cre 0.7, Glu 119, AST 95, ALT 93, alk phos 446, trop 0.03, INR 1.56. CXR showed no acute pulmonary findings. Patient is admitted to the ICU, currently made COMFORT MEASURES and the following is the management: 1. Upper GI bleed * Nataliya was admitted to the critical care unit, had continuous telemetry monitoring and frequent vital sign checks; Type and screen was sent and CBC trended * Patient s/p EGD by Dr. 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 History of CVA s/p TPA with hemorrhagic conversion * Currently no evidence of weakness or facial asymmetry on physical exam 3. Leukocytosis * Likely reactive * Patient afebrile without bandemia, no report of fever, cough, sputum production, dysuria, sick contacts or other indications of infecitous etiology on presentation * NO further lab draws at this point in time 4. Transaminitis * Abdominal US of RUQ abnormal as reported above * No aggressive management for this issue as per family wishes * No further labs/do not trend LFTs 5. Right lower extremity edema * Doppler cancelled as patient made LITHOPRESS OPERATOR * No anticoagulants in the setting of GIB COMFORT Regular diet Mild to moderate pain pathway Problem List: 1. Abnormal LFTs 2. Tachycardia 3. Hypotension 4. Upper GI hemorrhage 5. Dysphagia S/P CVA (cerebrovascular accident) 6. CVA (cerebral vascular accident) Pain Ratin Pain Location: Epigastric region Pain Goal: Remain pain free Pain Plan: Morphine 2 mg Q4P Tomorrow's Labs & Rationales: None, LITHOPRESS OPERATOR.
[2016-10-28 08:00] VITALS: BP 118/68
--- NOTE | 2016-10-28 09:24 | PN- Pulmonary ---
Subjective HPI/Critical Care Issues: DOing ok Eating but not too much Feels ok Sleepy Objective Current Medications: Current Medications Sig/Deion Start time Last Medication Dose Route Stop Time Status Admin Acetaminophen 325 MG Q6P PRN 10/27 1615 DC PO Atorvastatin Calcium 80 MG DAILY 10/28 1000 CAN PO Atorvastatin Calcium 80 MG 1700 10/27 1700 DC PO Chlorhexidine 1 GM .STK-MED ONE 10/28 0726 DC Gluconate TOP 10/28 0727 Ketorolac 15 MG Q6P PRN 10/27 161 DC Tromethamine IV Lorazepam 1 MG Q4P PRN 10/28 0845 AC IV Montelukast Sodium 10 MG AT BEDTIME 10/28 2200 CAN PO Montelukast Sodium 10 MG AT BEDTIME 10/27 2200 DC PO Morphine Sulfate 0 .STK-MED ONE 10/27 1728 CAN .ROUTE Morphine Sulfate 2 MG Q4P PRN 10/27 1615 AC 10/27 IV 1743 Ondansetron HCl 4 MG ONCE ONE 10/28 0815 DC 10/28 IV 10/28 0816 0815 Pantoprazole Sodium 40 MG BID 10/28 1000 AC 10/28 IV 0816 Pantoprazole Sodium 0 .STK-MED ONE 10/27 1554 DC IV Pantoprazole Sodium 80 MG ONCE ONE 10/27 1545 DC 10/27 IV 10/27 1546 1600 Pantoprazole Sodium 40 MG Q5H 10/27 1545 DC 10/28 Sodium Chloride 100 ML IV 0158 Potassium Chloride 10 MEQ Q1H 10/27 1730 DC 10/27 IV 10/27 1831 1904 Scopolamine HBr 1 PAT Q72H PRN 10/28 0845 AC TOP Sodium Chloride 1,000 ML Q10H 10/27 1730 DC 10/28 IV 10/28 1329 0126 Sodium Chloride 1,000 ML BOLUS ONE 10/27 1615 DC 10/27 IV 10/27 1714 1616 Sodium Chloride 1,000 ML BOLUS ONE 10/27 1615 DC 10/27 IV 10/27 1714 1743 Sodium Chloride 1,000 ML BOLUS ONE 10/27 1530 DC 10/27 IV 10/27 1629 1527 Vital Signs & I&O Last 24 Hrs of Vitals and I&O: Vital Signs Date Time Temp Pulse Resp B/P B/P Pulse O2 O2 Flow FiO2 Mean Ox Delivery Rate 10/28 0800 98.0 90 18 118/68 98 Nasal 2.0L Cannula 10/28 0400 Nasal 2.0L Cannula 10/28 0000 97 Nasal 2.0L Cannula 10/27 2359 98.5 98 26 100/72 97 Nasal 2.0L Cannula 10/27 1949 97.6 112 20 114/80 97 Room Air 10/27 1807 97.4 110 18 119/60 96 Room Air 10/27 1717 97.8 116 16 116/56 94 10/27 1615 120 90/54 10/27 1516 96 Room Air 10/27 1516 96.3 122 18 78/54 96 Room Air Intake & Output 10/28 1600 10/28 0800 10/28 0000 Intake Total 960 2597 Output Total 500 250 Balance 460 2347 Intake, IV 960 2537 Intake, Oral 60 Number 0 Bowel Movements Output, Urine 500 250 Patient 124 lb Weight Weight Bed scale Measurement Method Impression/Plan Impression/Plan Impression/Plan: Ms. 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 She came in with Severe upper GI bleed with hemodynamic compromise She's been adequately fluid resuscitated She did get an upper endoscopy which shows significant lesion in the duodenum which appears to be compressing from side. Differential diagnoses include aortoenteric fistula versus a large mass in the pancreas. RECOMMENDATION Discussed with the family yesterday and per pts wishes the patient and the family wishes no further medica care and will make patient comfort only At this time we will treat her symptomatically Dc all interventions pt is comfort care with possible dc to home with hospice or hospice inhouse if she bleeds DC protonix iv change to po
[2016-10-28 10:33] VITALS: BP 100/55
[2016-10-28 13:58] VITALS: BP 110/59
--- NOTE | 2016-10-28 19:15 | Event Note ---
Event Note Event Note: 10/28/17 7:15 89 yo female who is currently Comfort Care had an episode of hematemesis. Zofran 4 mg IVP every 6 hours when necessary was ordered The family is at the bedside.
[2016-10-28 22:39] VITALS: BP 86/58
--- NOTE | 2016-10-28 23:07 | Event Note ---
Event Note Event Note: I was informed by the nursing staff that the patient had an episode of hypotension subsequent to the Ativan and episode of hematemesis. She is presently on comfort care and is in no acute distress. No further action was taken at this time.
[2016-10-29 06:28] VITALS: BP 80/56
--- NOTE | 2016-10-29 08:04 | PN- Housestaff ---
Assessment/Plan Assessment: Ms. Sharma is a pleasant 89 year old female with PMH seizure disorder, TIA and CVA s/p hemorrhagic conversion (September 2016), reflux disease, osteoporosis, vitamin B12 deficiency, macular degeneration, dementia/cognitive impairment, anxiety and anemia who presented with chief complaint of vomiting blood. Patient has no prior history of hematemesis or blood per rectum and has not been recently on anticoagulation. In the ED: Vital signs showed T 96.3, HR 122, RR 18, BP 78/54 increased to 116/ 56 after 2 L fluid bolus, O2 96% on room air. Labs showed: WBC 17, 10.5/32.5, Plt 227, Na 139, K 3.9, Cl 107, HCO3 17, BUN 19, Cre 0.7, Glu 119, AST 95, ALT 93, alk phos 446, trop 0.03, INR 1.56. CXR showed no acute pulmonary findings. Patient is admitted to the ICU, currently made COMFORT MEASURES and the following is the management: 1. Upper GI bleed * Nataliya was admitted to the critical care unit, had continuous telemetry monitoring and frequent vital sign checks; Type and screen was sent and CBC trended * Patient s/p EGD by Dr. 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 History of CVA s/p TPA with hemorrhagic conversion * Currently no evidence of weakness or facial asymmetry on physical exam 3. Leukocytosis * Likely reactive * Patient afebrile without bandemia, no report of fever, cough, sputum production, dysuria, sick contacts or other indications of infecitous etiology on presentation * NO further lab draws at this point in time 4. Transaminitis * Abdominal US of RUQ abnormal as reported above * No aggressive management for this issue as per family wishes * No further labs/do not trend LFTs 5. 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
--- NOTE | 2016-10-29 08:23 | Event Note ---
Event Note Event Note: At 820 am, I was informed by nursing staff that patient might have passed. I evaluated her, could not appreciate breath and heart sounds, pupils were dilated and nonreactive. Patient was pronounced at 820am, but the approximate time of was 805am as per nursing staff. I personally called her [id number], Selam, and informed her of the news. She arrived to the hospital shortly with 2 other family members.
--- NOTE | 2016-10-29 08:25 | Discharge Summary ---
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 Patient has no prior history of hematemesis or blood per rectum and has not been recently on anticoagulation. Her hg was 15.1 on september, and this admission was found to be 10.5. Patient was admitted for acute blood loss anemia due to upper GI bleed. She was admitted to critical care unit and EGD was done, which showed large ulcerated mass with eschar and oozing, RUQ showed hypoechoic structure in epigastric region suspicious for pseudoaneurysm. Decision was made to change pt's code status to [employer] on 10/28/16. She was then transferred to general medicine. She had another episode of hematemesis with subsequent drop in blood pressure. Patient on 10/29/16 at 805am. I pronounced her on 10/29/16 at 820am. Family were notified, and shortly, they arrived to the hospital. Allergies: Coded Allergies: No Known Allergies (09/22/16) Significant Procedures: Radiology Findings: CXR: IMPRESSION: No acute pulmonary findings. Miscellaneous Findings: Endoscopy procedure findings: 1. Huge > 3 cm ulcerated mass with eschar and oozing at the roof of the early portion of the duodenal sweep, too large to clip, left intact without therapeutics, for fear making it worse (possible aorto-enteric fistula, rule out neoplasm, possible ampullary and/or pancreatic lesion, etc.) 2. Portion of the gastric fundus obscured by old blood. 3. NG tube erosion at the Z line at 39 cm. 4. Scant hiatal hernia pouch. Abdominal US IMPRESSION: 1. Nonspecific hypoechoic structure within the epigastric region with prominent vascularity demonstrating arterial and venous waveforms. This is suspicious for a pseudoaneurysm, of uncertain origin. Further evaluation is recommended with a CT angiogram of the abdomen. 2. Evaluation is limited on this study. There is likely hepatic steatosis. No gross hepatic lesion seen. 3. Hyperechoic material within the gallbladder most suggestive of tumefactive sludge. Disposition Summary Disposition Principal Diagnosis: Acute blood loss anemia Additional Diagnosis: Upper GI bleed Discharge Disposition: Discharge Instructions General Discharge Information Code Status: Comfort Care Only Patient's Diet: n/a Patient's Activity: n/a Follow-Up Instructions/Appts: n/a Copies To: DIETER LIRIANO,DENNY Attending MD Review Statement Documenting Attending: NAHED LU MD
== END 2016-10-29 08:20 | disposition expired | DRG 300 ==
LOC: ERH 15:07 → ERHI 15:59 → CRI 15:59 → 2NA 15:59 → ENRESERV 16:56 → CRI 18:48 → 2NA 10-28 10:22
PROVIDERS: Emergency Medicine; ADMIT Internal Medicine Pulmonary Disease
PROC: 0DJ08ZZ Inspection of Upper Intestinal Tract, Via Natural or Artificial Opening Endoscopic (ICD-10-PCS; principal; 2016-10-27)
DX: I77.2 Rupture of artery (principal); K92.2 Gastrointestinal hemorrhage, unspecified; I95.9 Hypotension, unspecified; Z51.5 Encounter for palliative care; D62 Acute posthemorrhagic anemia; F03.90 Unspecified dementia, unspecified severity, without behavioral disturbance, psychotic disturbance, mood disturbance, and anxiety; I69.320 Aphasia following cerebral infarction; R13.10 Dysphagia, unspecified; I69.391 Dysphagia following cerebral infarction; R19.09 Other intra-abdominal and pelvic swelling, mass and lump; Z66 Do not resuscitate; K86.9 Disease of pancreas, unspecified; R00.0 Tachycardia, unspecified; E53.8 Deficiency of other specified B group vitamins
CPT/HCPCS: 2NAP; CCU; 82436; 87040; 93005; 93010; 96374; 99291; J2405